=== PATIENT | female | born 1970 | race Caucasian/White ===

== ENCOUNTER 2020-01-21 13:29 | Emergency (ER) | payer MEDICARE, SELFPAY ==
--- NOTE | ~2020-01-21 | CT_ITS ---
EXAMINATION: CT abdomen pelvis w con DATE: 01/21/2020 17:26 INDICATION: Lower abdominal pain for 2-3 days TECHNIQUE: Computed tomography (CT) of the abdomen and pelvis was performed with 100 cc Omnipaque 350 intravenous contrast. The dose-length product was 1415.38 mGy-cm. Automated exposure control and ite rative reconstruction technique were employed. COMPARISON: CT dated 01/05/2019 FINDINGS: Lung bases unremarkable. Heart size normal. No pleural or pericardial effusion. Hepatomegal y. There are calcified granulomas of the spleen. Spleen is enlarged. The pancreas, adrenal glands and kidneys are unremarkable. Gallbladder is present and contains stones. Nonobstructive bowel gas patte rn. There are surgical changes of ventral abdominal wall hernia repair. There is a left paracentral v entral hernia containing fat. There is fluid in the endometrium which is thickened. Persistent nonenlarged retroperitoneal and left external iliac lymph nodes, likely reactive. No acute osseous abnormality. IMPRESSION: 1. Persistent chronic endometrial thickening with fluid. Further clinical evaluation recommended to e xclude endometrial malignancy. 2: Hepatosplenomegaly. 3: Cholelithiasis. 4: Previous ventral hernia repair with persistent left paracentral ventral hernia containing fat. Reviewed, dictated and finalized at location A. IMPRESSION: 1. Persistent chronic endometrial thickening with fluid. Further clinical evalu ation recommended to exclude endometrial malignancy. 2: Hepatosplenomegaly. 3: Cholelithiasis. 4: Previous ventral hernia repair with persistent left paracentral ventral her sheree containing fat.
[2020-01-21 13:52] VITALS: BP 131/71; PULSE 80; RESP 16; TEMP 36.6; O2SAT 97
[2020-01-21 14:12] LABS: Basophils Absolute Auto 0.1 K/mm3 (0.0-0.1); Basophils Percent Auto 0.6 % (0.2-1.2); Eosinophils Absolute Auto 0.3 K/mm3 (0-0.3); Eosinophils Percent Auto 3.9 % (0-4.4); Hematocrit 36.6 % (37.0-47.0); Immature Granulocyte Absolute 0.02 K/mm3 (0.00-0.031); Immature Granulocyte Percent A 0.3 % (0-0.5); Lymphocytes Absolute Auto 2.65 K/mm3 (0.9-3.2); Lymphocytes Percent Auto 33.5 % (18.3-44.2); Mean Corpuscular HGB Conc 32.8 g/dl (32-36); Mean Corpuscular Hemoglobin 26.4 pg (26-34); Mean Corpuscular Volume 80.6 fl (80-100); Mean Platelet Volume 8.5 fl (7.4-10.4); Monocytes Absolute Auto 0.5 K/mm3 (0.1-0.6); Monocytes Percent Auto 6.1 % (2.6-8.5); Neutrophils Absolute Auto 4.4 K/mm3 (1.3-6.7); Neutrophils Percent Auto 55.6 % (45.5-73.1); Platelet Count Result 309 k/mm3 (150-375); Red Blood Count 4.54 M/mm3 (4.2-5.4); Red Cell Distribution Width 15.6 % (11.5-14.5); White Blood Count 7.9 K/mm3 (4.5-10.0)
[2020-01-21 14:17] LABS: Add Urine Microscopic? YES; Appearance Urine Clear (Clear); Bacteria Urine Trace /hpf; Bilirubin Urine Negative (Negative); Blood Urine Negative (Negative); Color Urine Yellow (Yellow); Glucose Urine UA Negative (Negative); Ketones Urine Negative (Negative); Leukocyte Esterase Ur Trace LEU/UL (Negative); Mucus Urine Rare /lpf; Nitrate Urine Negative (Negative); Protein Urine 1+ mg/dL (Negative); RBC Urine 0-2 /hpf (0-2); Specific Grav Ur 1.024 (1.001-1.035); Squamous Epithelial Cell Urine Many /hpf (Few); WBC Urine 0-3 /hpf
[2020-01-21 14:24] LABS: Alanine Aminotransferase 17 U/L (4-35); Albumin Level 4.3 g/dL (3.5-5.1); Alkaline Phosphatase 91 U/L (38-126); Anion Gap 9 mmol/L (8-16); Aspartate Amino Transferase 22 U/L (14-36); Bilirubin,Total 0.7 mg/dL (0.2-1.3); Blood Urea Nitrogen 18 mg/dL (7-17); Calcium 9.7 mg/dL (8.4-10.2); Carbon Dioxide 26 mmol/L (22-30); Chloride 100 mmol/L (98-107); Estimated Glomerular Filt Rate 59; Glucose 114 mg/dL (65-105); Lipase 44 U/L (23-300); Potassium 4.2 mmol/L (3.4-5.0); Sodium 135 mmol/L (137-145)
--- NOTE | 2020-01-21 16:19 | ED.ABDPAIN ---
HPI - Abdominal Pain General Chief Complaint: Abdominal Pain Stated Complaint: abd pain 3-4 days Time Seen by Provider: 01/21/20 16:07 Source: RN notes reviewed History of Present Illness HPI narrative: Patient presents to emergency department from home for abdominal pain. Patient states began 4 days ago. Pain is located the bilateral lower abdomen described as sharp and stabbing. Associated with nausea and vomiting. Denies any fever chills chest pain shortness of breath diarrhea or any other symptoms. States he is taken no pain medication today for the symptoms.. States the pain does not radiate Related Data Home Medications Medication Instructions Recorded Confirmed levothyroxine 01/21/20 01/21/20 Allergies Allergy/AdvReac Type Severity Reaction Status Date / Time No Known Allergies Allergy Verified 01/21/20 16:06 Review of Systems Review of Systems: Narrative: Gen.: Denies fevers or chills ENT: Denies congestion Respiratory: Denies shortness of breath or cough CV: Denies chest pain or palpitations GI: See HPI denies burning, urgency, frequency or hematuria Musculoskeletal: Denies back pain or muscle pain Neuro: Denies numbness, tingling, weakness or focal weakness Skin: Denies rash Except as documented, all other systems reviewed and negative PMFSH Past Medical History Medical History (Updated 01/21/20 @ 17:46 by Pancho Strickland DO) Patient denies significant medical history Family History Family History (Updated 01/11/19 @ 10:50 by DOCTOR UNKNOWN) Father Family history of malignant neoplasm Mother Family history of chronic obstructive pulmonary disease Sibling Family history of malignant neoplasm of breast in first degree relative Family history of lupus erythematosus Other Asthma Depression Diabetes mellitus Family history of Alzheimer's disease Family history of alcoholism Family history of anemia Family history of cardiovascular disease Family history of malignant neoplasm of male breast Family history of mental disorder Family history of seizure disorder Family history of thyroid disease Hypertension Social History Social History Smoking status: Never smoker Alcohol intake: never Gender identity (if verbalized by the patient): Female Exam Narrative: Exam Narrative: APPEARANCE: No acute distress, nontoxic, resting in bed HEENT: Normocephalic, atraumatic, OMM RESPIRATORY: No respiratory distress, clear to auscultation bilaterally with no rhonchi wheezing or rales CARDIOVASCULAR: RRR s murmur ABDOMINAL: Obese, soft, nondistended, tender to palpation bilateral lower quadrants worse on the right than the left, no tenderness in right upper quadrant left upper quadrant, no rebound or guarding MUSCULOSKELETAl: Moves all extremities. No clubbing, cyanosis or edema. NEURO: Awake and alert. Following commands, speech normal, no focal deficits SKIN:: Warm, dry. Normal Color PSYCHIATRIC: Normal affect/mood Course Course Emergency Course: Discussed with patient CT results endometrial thickening. She states she is followed by Dr. Eugene for this she has had ablations and work-up. Discussed need for follow-up and patient and agreement at this time Patient states that they are feeling much better at this time. States abdominal pain has improved repeat abdominal exam shows the patient's abdomen to be soft with no surgical abdomen present. Discussed with patient results of workup and diagnosis. Discussed need for follow-up with primary care physician, reasons to return to the emergency department in proper use of medication. Patient understands and agrees to current treatment plan Vital Signs Vital signs: Vital Signs Temperature 97.9 F 01/21/20 13:52 Pulse Rate 80 01/21/20 13:52 Respiratory Rate 16 01/21/20 13:52 Blood Pressure 131/71 01/21/20 13:52 Pulse Oximetry 97 01/21/20 13:52 Tempera
[2020-01-21] MEDS: SODIUM CHLORIDE 0.9% IV 1,000 ML 999 ML IV CONT (17:10)
[2020-01-21] MEDS: KETOROLAC 30 MG/ML VIAL (*BKC) IV PUSH (17:12)
[2020-01-21] MEDS: MORPHINE SULFATE 2 MG/ML INJ IV PUSH (18:05)
[2020-01-21 18:09] VITALS: BP 147/66; PULSE 82; RESP 20; O2SAT 96
== END 2020-01-21 19:07 | disposition home or self-care (01) ==
PROVIDERS: Emergency Provider Emergency Medicine; PCP Family Medicine
DX: R10.32 Left lower quadrant pain (principal); R10.31 Right lower quadrant pain; R16.2 Hepatomegaly with splenomegaly, not elsewhere classified; K80.20 Calculus of gallbladder without cholecystitis without obstruction; K43.9 Ventral hernia without obstruction or gangrene; R93.89 Abnormal findings on diagnostic imaging of other specified body structures
CPT/HCPCS: 36415; 74177; 80053; 81001; 81025; 83690; 85025; 96361; 96374; 96375; 99284; J1885; J2270; J7030; Q9967

== ENCOUNTER 2020-02-10 19:38 | Emergency (ER) | payer MEDICARE, SELFPAY ==
--- NOTE | ~2020-02-10 | XR_ITS ---
EXAMINATION: XR ankle LT min 3V DATE: 02/10/2020 20:21 INDICATION: Lateral left ankle pain and swelling. TECHNIQUE: 4 views of left ankle were obtained. COMPARISON: None. FINDINGS: Bone alignment is normal. No fracture. There is mild midfoot osteoarthritis. There are enth esophytes at the posterior and plantar aspects of calcaneal tuberosity. IMPRESSION: 1. Mild midfoot osteoarthritis. Reviewed, dictated and finalized at location A.
--- NOTE | ~2020-02-10 | XR_ITS ---
EXAMINATION: XR foot LT min 3V DATE: 02/10/2020 20:21 INDICATION: Left foot pain. TECHNIQUE: 4 views of left foot were obtained. COMPARISON: None. FINDINGS: Bone alignment is normal. No fracture. There is mild osteoarthritis of first metatarsophala ngeal joint and some of the midfoot joints. There are enthesophytes at the posterior and plantar aspe cts of calcaneal tuberosity. IMPRESSION: 1. Mild polyarticular osteoarthritis. Reviewed, dictated and finalized at location A.
[2020-02-10 19:42] VITALS: BP 140/76; PULSE 66; RESP 17; TEMP 36.1; O2SAT 100
[2020-02-10] MEDS: HYDROcodone/acetaminophen (*CRX) 5-325 MG TABLET 1 TAB PO (20:51)
--- NOTE | 2020-02-10 21:06 | ED.LOWEXIN ---
HPI - Extremity Injury (Lower) General Chief Complaint: Extremity Injury, Lower Stated Complaint: fall, L foot pain Time Seen by Provider: 02/10/20 19:48 History of Present Illness HPI Narrative: Patient is a 49-year-old female who presents ER with left foot pain. She slipped on the floor and states her foot landed behind her back. Sudden onset pain. Walks with a limp. Mild sensation numbness but not actually numb. Did not lose consciousness. She had her left shoulder but she has full range of motion. No other concerns. Related Data Home Medications Medication Instructions Recorded Confirmed levothyroxine 01/21/20 01/21/20 Allergies Allergy/AdvReac Type Severity Reaction Status Date / Time No Known Allergies Allergy Verified 02/10/20 19:44 Review of Systems Musculoskeletal: Musculoskeletal: Denies back pain, Denies arthralgias and Reports joint swelling Comments: Foot pain Neurologic: Denies focal weakness and Reports numbness PMFSH Past Medical History Medical History (Updated 02/10/20 @ 21:10 by John Lemus MD) Patient denies significant medical history Family History Family History (Updated 01/11/19 @ 10:50 by DOCTOR UNKNOWN) Father Family history of malignant neoplasm Mother Family history of chronic obstructive pulmonary disease Sibling Family history of malignant neoplasm of breast in first degree relative Family history of lupus erythematosus Other Asthma Depression Diabetes mellitus Family history of Alzheimer's disease Family history of alcoholism Family history of anemia Family history of cardiovascular disease Family history of malignant neoplasm of male breast Family history of mental disorder Family history of seizure disorder Family history of thyroid disease Hypertension Social History Social History Smoking status: Never smoker Alcohol intake: never Gender identity (if verbalized by the patient): Female Exam Narrative: Exam Narrative: GENERAL: Well-appearing, well-nourished, and in no acute distress. HEAD: Normocephalic, atraumatic. EXTREMITIES: Normal range of motion. 2+ edema. Tenderness left midfoot without swelling or bruising. SKIN: Warm, dry, no rash. NEURO: No focal deficits. Alert and oriented x3. PSYCH: Normal mood and affect. Course Course Emergency Course: Informed of results. Discharge home. Vital Signs Vital signs: Vital Signs Temperature 97 F L 02/10/20 19:42 Pulse Rate 66 02/10/20 19:42 Respiratory Rate 17 02/10/20 19:42 Blood Pressure 140/76 02/10/20 19:42 Pulse Oximetry 100 02/10/20 19:42 Temperature 97 F L 02/10/20 19:42 Pulse Rate 66 02/10/20 19:42 Respiratory Rate 17 02/10/20 19:42 Blood Pressure 140/76 02/10/20 19:42 Pulse Oximetry 100 02/10/20 19:42 MDM - Extremity Injury (Lower) Imaging Data Radiologist's impression: ITS Impressions Ankle X-Ray 02/10/20 20:31 IMPRESSION: 1. Mild midfoot osteoarthritis. Foot X-Ray 02/10/20 20:32 IMPRESSION: 1. Mild polyarticular osteoarthritis. Discharge Plan Discharge Clinical Impression: Contusion of foot Patient Disposition: Home, Self-Care Condition: Stable Instructions: Foot Contusion (ED) Additional Instructions: Return the ER if you have chest pain or shortness of breath, you have a swollen and red foot, you have additional concerns. Prescriptions: New ibuprofen 800 mg tablet 800 mg PO TID Qty: 20 RF: 0 No Action levothyroxine 200 mcg tablet RF: 0 Follow-up/Referrals: Any,Veronika Todd MD [Primary Care Provider] - 1 Week
[2020-02-10 21:21] VITALS: TEMP 36.1
[2020-02-10 21:22] VITALS: BP 149/83; PULSE 74; RESP 18; TEMP 36.8; O2SAT 100
== END 2020-02-10 21:24 | disposition home or self-care (01) ==
PROVIDERS: Emergency Provider Emergency Medicine; PCP Family Medicine
DX: S90.32XA Contusion of left foot, initial encounter (principal); W01.0XXA Fall on same level from slipping, tripping and stumbling without subsequent striking against object, initial encounter
CPT/HCPCS: 73610; 73630; 99283; A9270

== ENCOUNTER 2020-03-02 13:02 | Emergency (ER) | payer MEDICARE, SELFPAY ==
--- NOTE | ~2020-03-02 | CT_ITS ---
EXAMINATION: CT abdomen pelvis w con DATE: 03/02/2020 14:38 INDICATION: Abdominal pain radiating to the flank TECHNIQUE: Computed tomography (CT) of the abdomen and pelvis was performed with 100 cc Omnipaque 350 intravenous contrast. Automated exposure control and iterative reconstruction technique were employe d. Exam dose: 1312.24 mGy-cm total exam DLP. COMPARISON: 01/13/2020 CT abdomen pelvis FINDINGS: The lung bases are clear. Cardiomegaly. No pericardial or pleural effusion. There are multiple small gallstones. No gallbladder wall thickening or pericholecystic fluid or fat s tranding. No hepatic space-occupying mass lesion or bile duct dilatation. No pancreatic mass lesion, calcification or ductal dilatation. Multiple calcified splenic granulomas. No splenomegaly. Normal morphology of the adrenal glands. No renal mass lesion. No urinary tract obstruction or hydroureteronephrosis. The urinary bladder is u nremarkable. The uterus measures 11 cm height, 7 10 mm AP dimension. There is up to approximately 6 x 6 cm x 5.5 c m mass or high attenuation fluid collection within the endometrial cavity. Endometrial malignancy mus t be considered. 2.9 cm left ovarian cyst or cystic mass; consider sonographic correlation. Normal caliber of the abdominal aorta. No intraperitoneal or retroperitoneal or pelvic mass lesion or adenopathy or ascites. Postoperative change of the stomach. No bowel obstruction, bowel wall thickening, pneumatosis or intr aperitoneal free air. There is ventral abdominal wall mesh repair. No suspicious osteolytic or osteoblastic lesions. IMPRESSION: Prominent mass or high density fluid collection with an individual cavity measuring up t o 6 x 6 x 5.5 cm; endometrial malignancy cannot be excluded. Up to 2.9 cm left ovarian cysts or cystic mass. Consider pelvic ultrasound correlation. Cholelithiasis Cardiomegaly Reviewed, dictated and finalized at [facility]. Reviewed, dictated and finalized at location A. IMPRESSION: Prominent mass or high density fluid collection with an individual cavity measuring up to 6 x 6 x 5.5 cm; endometrial malignancy cannot be exclud ed. Up to 2.9 cm left ovarian cysts or cystic mass. Consider pelvic ultrasound skylar elation. Cholelithiasis Cardiomegaly
[2020-03-02 13:19] VITALS: BP 162/66; PULSE 76; RESP 20; TEMP 36.8; O2SAT 98
--- NOTE | 2020-03-02 13:31 | ED.ABDPAIN ---
HPI - Abdominal Pain General Chief Complaint: Abdominal Pain Stated Complaint: abd pain to back Time Seen by Provider: 03/02/20 13:31 Source: patient Mode of arrival: ambulatory Limitations: no limitations History of Present Illness HPI narrative: Patient is a 49-year-old female with a history of cervical cancer and endometriosis who presents for evaluation of urinary frequency and abdominal pain. Patient reports abdominal pain and urinary frequency over the past 48 hours. She reports lower abdominal pain with radiation to the back. Patient reports pressure with urination. She denies fever, chills, nausea or vomiting. Pain is aching in nature, constant over the past 48 hours. Patient follows with Dr. Moreno at [facility]. Not currently undergoing any chemotherapy. She is scheduled for hysterectomy on March 17. Related Data Home Medications Medication Instructions Recorded Confirmed levothyroxine 01/21/20 01/21/20 Allergies Allergy/AdvReac Type Severity Reaction Status Date / Time No Known Allergies Allergy Verified 03/02/20 13:47 Review of Systems Review of Systems: Narrative: CONSTITUTIONAL: Denies fever, chills, or sweats. ENT: Denies rhinorrhea, congestion, sore throat, or otalgia. CARDIOVASCULAR: Denies chest pain, palpitations, or edema. RESPIRATORY: Denies cough or dyspnea. GASTROINTESTINAL: Reports abdominal pain. GENITOURINARY: Denies dysuria or hematuria. Reports frequency SKIN: Denies rash or itching. MUSCULOSKELETAL: Reports bilateral back pain NEUROLOGIC: Denies headache REPLACED BY [facility] Past Medical History Medical History (Updated 03/02/20 @ 15:51 by Dolores Pimentel MD) Cervical cancer Endometriosis Family History Family History (Updated 01/11/19 @ 10:50 by DOCTOR UNKNOWN) Father Family history of malignant neoplasm Mother Family history of chronic obstructive pulmonary disease Sibling Family history of malignant neoplasm of breast in first degree relative Family history of lupus erythematosus Other Asthma Depression Diabetes mellitus Family history of Alzheimer's disease Family history of alcoholism Family history of anemia Family history of cardiovascular disease Family history of malignant neoplasm of male breast Family history of mental disorder Family history of seizure disorder Family history of thyroid disease Hypertension Social History Social History Smoking status: Never smoker Alcohol intake: never Gender identity (if verbalized by the patient): Female Exam Narrative: Exam Narrative: GENERAL: Awake, alert, conversant HEAD: Normocephalic, atraumatic. EYES: PERRLA and EOMI. ENT: Nares clear, no rhinorrhea or epistaxis. Mucous membranes moist. NECK: Supple. CHEST: No respiratory distress, breathing even and non labored HEART: Regular rate, sinus rhythm ABDOMEN: Obese, nondistended, mildly tender in the right lower quadrant, right suprapubic area, no rebound, no guarding EXTREMITIES: Normal range of motion. No edema. SKIN: Warm, dry, no rash. NEURO:No focal deficits. Alert and oriented x3 Course Vital Signs Vital signs: Vital Signs Temperature 36.8 C 03/02/20 13:19 Pulse Rate 76 03/02/20 13:19 Respiratory Rate 20 03/02/20 13:19 Blood Pressure 162/66 H 03/02/20 13:19 Pulse Oximetry 98 03/02/20 13:19 Temperature 36.8 C 03/02/20 13:19 Pulse Rate 76 03/02/20 13:19 Respiratory Rate 20 03/02/20 13:19 Blood Pressure 162/66 H 03/02/20 13:19 Pulse Oximetry 98 03/02/20 13:19 MDM - Abdominal Pain MDM Narrative Medical decision making narrative: Patient presenting for evaluation of pelvic pain in the setting of known endometrial cancer. Patient with pressure with urination. Laboratory results are reassuring. No leukocytosis or anemia. No acute electrolyte derangement. No UTI. CT scan confirms endometrial mass, patient is already scheduled f
[2020-03-02] MEDS: SODIUM CHLORIDE 0.9% IV 1,000 ML 999 ML IV CONT (13:41)
[2020-03-02] MEDS: ONDANSETRON INJ 4 MG/2 ML VIAL IV PUSH (13:42)
[2020-03-02] MEDS: MORPHINE SULFATE (*CRX) 4 MG/ML INJ IV PUSH (13:42)
[2020-03-02 13:45] LABS: Basophils Absolute Auto 0.1 K/mm3 (0.0-0.1); Basophils Percent Auto 0.6 % (0.2-1.2); Eosinophils Absolute Auto 0.3 K/mm3 (0-0.3); Eosinophils Percent Auto 3.2 % (0-4.4); Hematocrit 38.6 % (37.0-47.0); Hemoglobin 12.6 g/dL (12.0-15.0); Immature Granulocyte Absolute 0.02 K/mm3 (0.00-0.031); Immature Granulocyte Percent A 0.2 % (0-0.5); Lymphocytes Absolute Auto 2.33 K/mm3 (0.9-3.2); Lymphocytes Percent Auto 23.4 % (18.3-44.2); Mean Corpuscular HGB Conc 32.6 g/dl (32-36); Mean Corpuscular Hemoglobin 26.9 pg (26-34); Mean Corpuscular Volume 82.5 fl (80-100); Mean Platelet Volume 8.3 fl (7.4-10.4); Monocytes Absolute Auto 0.6 K/mm3 (0.1-0.6); Monocytes Percent Auto 5.7 % (2.6-8.5); Neutrophils Absolute Auto 6.7 K/mm3 (1.3-6.7); Neutrophils Percent Auto 66.9 % (45.5-73.1); Platelet Count Result 286 k/mm3 (150-375); Red Blood Count 4.68 M/mm3 (4.2-5.4); Red Cell Distribution Width 15.5 % (11.5-14.5)
[2020-03-02 13:45] LABS: Add Urine Microscopic? YES; Appearance Urine Clear (Clear); Bacteria Urine Trace /hpf; Bilirubin Urine Negative (Negative); Blood Urine Negative (Negative); Color Urine Yellow (Yellow); Glucose Urine UA Negative (Negative); Ketones Urine Negative (Negative); Leukocyte Esterase Ur Negative LEU/UL (Negative); Mucus Urine Rare /lpf; Nitrate Urine Negative (Negative); Protein Urine Negative (Negative); RBC Urine 0-2 /hpf (0-2); Specific Grav Ur 1.021 (1.001-1.035); Squamous Epithelial Cell Urine Moderate /hpf (Few); WBC Urine 0-3 /hpf
[2020-03-02 13:59] LABS: Alanine Aminotransferase 23 U/L (4-35); Albumin Level 4.2 g/dL (3.5-5.1); Alkaline Phosphatase 87 U/L (38-126); Anion Gap 6 mmol/L (8-16); Aspartate Amino Transferase 24 U/L (14-36); Bilirubin,Total 0.5 mg/dL (0.2-1.3); Blood Urea Nitrogen 20 mg/dL (7-17); Calcium 9.8 mg/dL (8.4-10.2); Carbon Dioxide 29 mmol/L (22-30); Chloride 103 mmol/L (98-107); Estimated Glomerular Filt Rate 53; Glucose 97 mg/dL (65-105); Lipase 50 U/L (23-300); Potassium 4.5 mmol/L (3.4-5.0); Sodium 138 mmol/L (137-145)
[2020-03-02] MEDS: oxyCODONE/ACETAMINOPHEN (*CRX) 5-325 MG TABLET 1 TABLET PO (15:34)
[2020-03-02 16:47] VITALS: BP 155/78; PULSE 80; RESP 19; O2SAT 98
== END 2020-03-02 16:49 | disposition home or self-care (01) ==
PROVIDERS: Emergency Provider Emergency Medicine; PCP Family Medicine
DX: C54.1 Malignant neoplasm of endometrium (principal); R10.2 Pelvic and perineal pain; K80.20 Calculus of gallbladder without cholecystitis without obstruction; I51.7 Cardiomegaly; R93.89 Abnormal findings on diagnostic imaging of other specified body structures
CPT/HCPCS: 36415; 74177; 80053; 81001; 81025; 83690; 85025; 96361; 96374; 96375; 99284; A9270; J0131; J2270; J2405; J7030; Q9967

== ENCOUNTER 2022-01-04 07:22 | Outpatient (RCR) | payer MEDICARE, SELFPAY | END 2022-03-25 08:08 | disposition home or self-care (01) | LOC: ANHDMC 07:22 | PROVIDERS: PCP Family Medicine; Visit Provider Internal Medicine Endocrinology, Diabetes & Metabolism | DX: E11.9 Type 2 diabetes mellitus without complications (principal) | CPT/HCPCS: 99199 ==

== ENCOUNTER 2022-01-14 11:47 | Emergency (ER) | payer MEDICARE, SELFPAY ==
--- NOTE | ~2022-01-14 | XR_ITS ---
EXAMINATION: XR lumbar spine min 4V DATE: 01/14/2022 13:23 INDICATION: Low back pain TECHNIQUE: Anteroposterior, lateral, and bilateral oblique views of the lumbar spine, and cone-down l ateral view of the lumbosacral junction were obtained. COMPARISON: CT, 03/02/2020 FINDINGS: There are 3 mm of retrolisthesis of L5 on S1. Bone alignment is otherwise normal. No fractu re is identified. The vertebral body heights are maintained. There is moderate facet osteoarthritis o f the lower lumbar spine. Small degenerative osteophytes project from the anterior endplates of multi ple vertebral bodies. There is a moderately dilated loop of bowel in the midabdomen. IMPRESSION: 1. Moderate lumbar spondylosis without acute findings or significant interval change. 2. Dilated loop of bowel in the midabdomen of unclear significance. Reviewed, dictated and finalized at location B. IMPRESSION: 1. Moderate lumbar spondylosis without acute findings or significant interval c hange. 2. Dilated loop of bowel in the midabdomen of unclear significance.
--- NOTE | ~2022-01-14 | XR_ITS ---
EXAMINATION: XR knee RT min 4V DATE: 01/14/2022 13:23 INDICATION: Right knee injury. TECHNIQUE: 4 views of right knee were obtained. COMPARISON: None. FINDINGS: Bone alignment is normal. No fracture. There is mild tricompartmental osteoarthritis. No kn ee joint effusion. There are surgical clips in the posterior medial soft tissues. IMPRESSION: 1. Mild right knee osteoarthritis. Reviewed, dictated and finalized at location A.
--- NOTE | ~2022-01-14 | CT_ITS ---
EXAMINATION: CT abdomen pelvis wo con DATE: 01/14/2022 14:19 INDICATION: abd pain TECHNIQUE: Computed tomography (CT) of the abdomen and pelvis was performed without intravenous contr ast. Automated exposure control and iterative reconstruction technique were employed. The dose-length product was 1365.14 mGy-cm. COMPARISON: 03/02/2020. FINDINGS: Lower thorax: Cardiomegaly. Liver: Hepatomegaly. Biliary/Gallbladder: Gallbladder is collapsed. No bile duct dilation. Pancreas: No mass or duct dilation. Spleen: Normal. Adrenals:No mass. Kidneys: No mass, stone, or hydronephrosis. GI tract: Prior gastric surgery. No small or large bowel dilation. Herniation of multiple loops of no ndilated small bowel into a infraumbilical ventral hernia. Gas filled dilated loop of redundant sigmo id colon. Normal appendix. Scattered, minimal diverticulosis, without diverticulitis. Mesentery/Peritoneum: No ascites, mass, or free air. Borderline mesenteric lymphadenopathy. Retroperitoneum: No mass. Pelvis: Uterus is absent.. Soft Tissues: 6.9 x 5.9 cm infraumbilical midline ventral hernia containing multiple loops of small b owel, with significant surrounding inflammatory change. No fluid. Bilateral iliac lymphadenopathy. In terval removal/replacement of hernia mesh. Bones: No acute osseous finding. IMPRESSION: Marked hepatomegaly. Large inflamed infraumbilical midline abdominal wall hernia containing multiple loops of nondilated small bowel. No evidence of ileus or obstruction. Gas-filled mildly dilated loop of redundant sigmoid in the midline upper abdomen may be a source of pain. Bilateral iliac lymphadeno mitch. Borderline mesenteric/inguinal lymphadenopathy. Reviewed, dictated and finalized at location K. IMPRESSION: Marked hepatomegaly. Large inflamed infraumbilical midline abdominal wall herni a containing multiple loops of nondilated small bowel. No evidence of ileus or obstruction. Gas-filled mildly dilated loop of redundant sigmoid in the midline upper abdomen may be a source of pain. Bilateral iliac lymphadenopathy. Border line mesenteric/inguinal lymphadenopathy.
[2022-01-14 11:50] VITALS: BP 160/75; PULSE 84; RESP 16; TEMP 37.2; O2SAT 99
[2022-01-14] MEDS: HYDROcodone/acetaminophen (*CRX) 5-325 MG TABLET 1 TAB PO (12:45)
--- NOTE | 2022-01-14 12:48 | ED.FALL ---
HPI - Fall General Chief Complaint: Fall Stated Complaint: back, r knee injury Time Seen by Provider: 01/14/22 11:54 Source: RN notes reviewed History of Present Illness HPI Narrative: Patient presents emergency room from home for a fall. Patient states last night she is going on the stairs and missed the last 2 stairs and fell. She states at that time she landed on her right knee with pain in her right knee and twisted her lower back states she does not believe she directly struck her back she states she did strike the side of her head but did not have any loss of consciousness and she denies any headache she denies any other trauma or injuries from the fall she has been able to walk but states it is painful in her right leg she states she has not taking pain medication for the symptoms today she denies any chest pain shortness of breath abdominal pain numbness or tingling of the extremities bowel or bladder incontinence or any other symptoms Related Data Home Medications Medication Instructions Recorded Confirmed levothyroxine 200 mcg tablet 01/21/20 01/21/20 Allergies Allergy/AdvReac Type Severity Reaction Status Date / Time No Known Allergies Allergy Verified 03/02/20 13:47 Review of Systems Review of Systems: Gen.: Denies fevers or chills Eyes: Denies eye pain or visual change ENT: Denies congestion Respiratory: Denies shortness of breath or cough CV: Denies chest pain or palpitations GI: Denies abdominal pain nausea, emesis denies incontinence Musculoskeletal: See HPI Neuro: Denies numbness, tingling, weakness or focal weakness Skin: Denies rash Except as documented, all other systems reviewed and negative [facility] Past Medical History Medical History Cervical cancer Endometriosis Family History Family History (Updated 01/11/19 @ 10:50 by DOCTOR UNKNOWN) Father Family history of malignant neoplasm Mother Family history of chronic obstructive pulmonary disease Sibling Family history of malignant neoplasm of breast in first degree relative Family history of lupus erythematosus Other Asthma Depression Diabetes mellitus Family history of Alzheimer's disease Family history of alcoholism Family history of anemia Family history of cardiovascular disease Family history of malignant neoplasm of male breast Family history of mental disorder Family history of seizure disorder Family history of thyroid disease Hypertension Social History Social History Smoking status: Never smoker Alcohol intake: never Gender identity (if verbalized by the patient): Female Exam Narrative: APPEARANCE: No acute distress, nontoxic, resting in bed EYES: EOMI, PERRL HEENT: Normocephalic, atraumatic, OMM TMs clear bilaterally Neck: Supple no midline tenderness to palpation for range of motion without pain RESPIRATORY: No respiratory distress Clear to auscultation bilaterally with no rhonchi wheezing or rales. CARDIOVASCULAR: Regular rate and rhythm without murmurs rubs or gallops. ABDOMINAL: Soft, nontender, nondistended, no rebound or guarding MUSCULOSKELETAl: Moves all extremities. No clubbing, cyanosis or edema. No tenderness of the bilateral upper and left lower extremity tender palpation of right anterior knee no swelling or ecchymosis no tenderness over the medial lateral knee pain with flexion greater than 45 degrees no tenderness of the right hip or ankle neurovascular intact Back: No midline thoracic or lumbar tenderness palpation tender palpation of bilateral perigee muscles L3-5 pain worse with forward flexion NEURO: Awake and alert. Following commands, speech normal, no focal deficits SKIN:: Warm, dry. No rashes lesions or abrasions PSYCHIATRIC: Normal affect/mood, exam Course Course Emergency Course: [place] x-ray I did discuss with patient she does some intermittent bettie t
== END 2022-01-14 15:17 | disposition home or self-care (01) ==
PROVIDERS: Emergency Provider Emergency Medicine; PCP Family Medicine
DX: S80.01XA Contusion of right knee, initial encounter (principal); M54.50 Low back pain, unspecified; S00.93XA Contusion of unspecified part of head, initial encounter; W10.9XXA Fall (on) (from) unspecified stairs and steps, initial encounter
CPT/HCPCS: 72110; 73564; 74176; 99284; A9270

== ENCOUNTER 2022-04-24 07:39 | Outpatient (CLI) | payer MEDICARE, SELFPAY ==
--- NOTE | ~2022-04-24 | CT_ITS ---
EXAMINATION: CT soft tissue neck w con DATE: 04/24/2022 08:29 INDICATION: Squamous cell carcinoma of skin. TECHNIQUE: Computed tomography (CT) of the neck was performed with 75 mL Omnipaque-350 intravenous co ntrast. Automated exposure control and iterative reconstruction technique were employed. The dose-evelio gth product was 434.16 mGy-cm. COMPARISON: None FINDINGS: Calcified mediastinal lymph nodes are consistent with old granulomatous disease. There is m ild plaque in the proximal internal carotid arteries with 0% stenosis relative to normal distal arter y lumen diameters. There is mild mucosal thickening in the ethmoid sinuses. The mastoid air cells are normal. There is mild cervical spondylosis. IMPRESSION: 1. No evidence of metastatic disease. Reviewed, dictated and finalized at location A. [facility]
--- NOTE | ~2022-04-24 | CT_ITS ---
EXAMINATION: CT brain w con DATE: 04/24/2022 08:29 INDICATION: Squamous cell carcinoma of the skin TECHNIQUE: Computed tomography (CT) of the head was performed with 100 cc Omnipaque 350 intravenous c ontrast. The dose-length product was 674.51 mGy-cm. Automated exposure control and iterative reconstr uction technique were employed. COMPARISON: None FINDINGS: Normal brain parenchymal volume. Normal suarez-white differentiation. No infarction, hemorrha ge, mass or mass effect. No abnormal enhancement. No ventriculomegaly or midline shift. Paranasal sin uses and mastoids are pneumatized. No focal lytic or blastic lesions of the skull. IMPRESSION: 1. No significant intracranial abnormality. Reviewed, dictated and finalized at location A. 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
== END 2022-04-24 07:40 ==
PROVIDERS: PCP Family Medicine
DX: C44.92 Squamous cell carcinoma of skin, unspecified (principal)
CPT/HCPCS: 70460; 70491; Q9967

== ENCOUNTER 2022-07-12 17:43 | Emergency (ER) | payer MEDICARE, SELFPAY ==
--- NOTE | ~2022-07-12 | XR_ITS ---
XR elbow RT min 3V 07/12/2022 18:14 INDICATION: Right elbow pain PROCEDURE: 4 views right elbow COMPARISON: No prior studies for comparison. FINDINGS: Fracture, dislocation or subluxation is not identified. No significant joint effusion. Ther e is mild dorsal soft tissue swelling. No foreign bodies are identified. IMPRESSION: 1: NO ACUTE BONE OR JOINT ABNORMALITY IDENTIFIED. Reviewed, dictated and finalized at location A. C[employer] F[employer]ER
[2022-07-12 17:51] VITALS: BP 162/85; PULSE 75; RESP 20; TEMP 36.4; O2SAT 99
--- NOTE | 2022-07-12 18:16 | ED.UPPEXIN ---
HPI - Extremity Injury (Upper) General Chief Complaint: Extremity Injury, Upper Stated Complaint: right elbow injury/migraine Time Seen by Provider: 07/12/22 18:17 Source: patient Mode of arrival: ambulatory Limitations: no limitations History of Present Illness HPI narrative: 51-year-old 51-year-old female presenting for complaint of right elbow pain for 3 days, and migraine today. She endorses striking the right elbow on a car door 3 days ago and has had pain with mild swelling since then. Elbow pain radiates to right shoulder. She applied ice. Denies numbness, tingling, decreased range of motion to the RUE. She also reports the migraine started today. She endorses intermittent headaches but states this is worse than normal. endorses mild photophobia and nausea. endorses increased stress lately. She rates pain 10/10. She has taken Tylenol and ibuprofen. Denies Shortness of breath, wheezing, vomiting, diarrhea, fevers or chills. Related Data Home Medications Medication Instructions Recorded Confirmed levothyroxine 200 mcg tablet 200 mcg PO DAILY 01/21/20 07/12/22 acetaminophen 300 mg-codeine 30 mg See Rx Instructions .Route 07/12/22 07/12/22 tablet .COMPLEX PRN Pain gabapentin 300 mg capsule 300 mg PO BID 07/12/22 07/12/22 tramadol 50 mg tablet See Rx Instructions .Route 07/12/22 07/12/22 .COMPLEX PRN Pain Allergies Allergy/AdvReac Type Severity Reaction Status Date / Time No Known Allergies Allergy Verified 01/17/22 08:50 Review of Systems Review of Systems: Per HPI All systems reviewed & are unremarkable except as noted in HPI and below PMFSH Past Medical History Medical History Cervical cancer CHF (congestive heart failure) Endometriosis History of blood transfusion Hypothyroid Surgical History Surgical History History of delivery History of hysterectomy History of incisional hernia repair History of tonsillectomy History of umbilical hernia repair Family History Family History Father Lung cancer Hypertension Mother Family history of chronic obstructive pulmonary disease Diabetes mellitus Heart disease Cerebrovascular accident Skin cancer Sibling Family history of malignant neoplasm of breast in first degree relative Family history of lupus erythematosus Other Asthma Depression Family history of Alzheimer's disease Family history of alcoholism Family history of anemia Family history of cardiovascular disease Family history of malignant neoplasm of male breast Family history of mental disorder Family history of seizure disorder Family history of thyroid disease Social History Social History Smoking status: Never smoker Alcohol intake: never Additional occupation/education comments: disabled Gender identity (if verbalized by the patient): Female Comments At time of signature, I have reviewed and agree with nursing past medical, surgical, social and family history unless otherwise noted. Please see nursing chart for further information. There is no relevant family history pertinent to the presenting complaint Exam Narrative: GENERAL: Well-appearing EYES: PERRLA, EOMI conjunctivae clear NECK: Supple. CHEST: Speaks in full sentences. No respiratory distress. HEART: Regular rate and rhythm. Normal and equal peripheral pulses. EXTREMITIES: Right elbow ulnar aspect with 1cm scabbed laceration over olecranon and surrounding erythema approx 3cm diameter, mild swelling, minimal bruising; right UE has normal strength and sensation, normal range of motion, but endorses pain with movement.No obvious deformity; alignment normal, pulse palpable and equal bilaterally, skin warm, dry, pink. Capillary refill less than 3 seco
== END 2022-07-12 18:30 | disposition home or self-care (01) ==
PROVIDERS: Emergency Provider Nurse Practitioner Family; PCP Family Medicine
DX: S50.01XA Contusion of right elbow, initial encounter (principal); W22.8XXA Striking against or struck by other objects, initial encounter; R51.9 Headache, unspecified; E03.9 Hypothyroidism, unspecified; N80.9 Endometriosis, unspecified; I50.9 Heart failure, unspecified; Z85.41 Personal history of malignant neoplasm of cervix uteri
CPT/HCPCS: 73080; 99213; G0463

== ENCOUNTER 2022-11-11 15:03 | Emergency (ER) | payer MEDICARE, SELFPAY ==
[2022-11-11 15:10] VITALS: BP 169/81; PULSE 79; RESP 20; TEMP 36.9; O2SAT 100
[2022-11-11 15:16] VITALS: BP 169/81; PULSE 79; RESP 20; TEMP 36.9; O2SAT 100
--- NOTE | 2022-11-11 15:16 | ECG_ITS ---
Measurements Intervals [place] Rate: 75 P: 27 TX: 178 QRS: -2 QRSD: 176 T: 44 QT: 478 QTc: 536 Interpretive Statements SINUS RHYTHM RIGHT BUNDLE BRANCH BLOCK [120+ ms QRS DURATION, UPRIGHT V1, 40+ ms S IN I/aVL/V4/V5/V6] COMPARED TO ECG 11/11/2022 15:27:20 NO SIGNIFICANT CHANGES Electronically Signed On 11-12-2022 14:59:03 CDT by Charlene Ames M.D.
--- NOTE | 2022-11-11 15:16 | ED.HA ---
HPI - Headache General Chief Complaint: Chest Pain Stated Complaint: Migraine w/heavy chest History of Present Illness HPI Narrative: PATIENT STATES SHE WAS AT HOME THIS MORNING HAVING A YD SALE AND CAREGIVER CHECKS ON HER MONTHLY CALLED FOR UPDATE ON HER HEALTH STATUS. PATIENT STATES SHE REPORTED CHEST HEAVINESS, IF AN ELEPHANT IS SITTING ON HER CHEST PRESSURE THAT IS INTERMITTENT. PATIENT DENIES SHORTNESS OF BREATH ALSO REPORTS A HEADACHE THAT IS THE WORST HEADACHE OF HER LIFE. PATIENT STATES SHE WAS INSTRUCTED TO GO TO AN URGENT CARE FOR EVALUATION TREATMENT BY IN THE OFFICE STAFF. Related Data Home Medications Medication Instructions Recorded Confirmed levothyroxine 200 mcg tablet 200 mcg PO DAILY 01/21/20 11/11/22 acetaminophen 300 mg-codeine 30 mg See Rx Instructions .Route 07/12/22 11/11/22 tablet .COMPLEX PRN Pain gabapentin 300 mg capsule 300 mg PO BID 07/12/22 11/11/22 Allergies Allergy/AdvReac Type Severity Reaction Status Date / Time No Known Allergies Allergy Verified 11/11/22 15:14 Review of Systems Review of Systems: CONSTITUTIONAL: DENIES FEVER, CHILLS, OR SWEATS. EYES: DENIES VISUAL CHANGES, REDNESS, OR DISCHARGE. ENT: DENIES RHINORRHEA, CONGESTION, SORE THROAT, OR OTALGIA. CARDIOVASCULAR: DENIES CHEST PAIN, PALPITATIONS, OR EDEMA. RESPIRATORY: DENIES COUGH OR DYSPNEA. GASTROINTESTINAL: DENIES ABDOMINAL PAIN, NAUSEA, VOMITING, OR DIARRHEA. GENITOURINARY: DENIES DYSURIA OR HEMATURIA. SKIN: DENIES RASH OR ITCHING. MUSCULOSKELETAL: DENIES BACK PAIN, JOINT PAIN, OR MYALGIA. NEUROLOGIC: DENIES HEADACHE, NUMBNESS, OR WEAKNESS. PSYCHIATRIC: DENIES ANXIETY OR DEPRESSION. [facility] Past Medical History Medical History Cervical cancer CHF (congestive heart failure) Endometriosis History of blood transfusion Hypothyroid Surgical History Surgical History History of delivery History of hysterectomy History of incisional hernia repair History of tonsillectomy History of umbilical hernia repair Family History Family History Father Lung cancer Hypertension Mother Family history of chronic obstructive pulmonary disease Diabetes mellitus Heart disease Cerebrovascular accident Skin cancer Sibling Family history of malignant neoplasm of breast in first degree relative Family history of lupus erythematosus Other Asthma Depression Family history of Alzheimer's disease Family history of alcoholism Family history of anemia Family history of cardiovascular disease Family history of malignant neoplasm of male breast Family history of mental disorder Family history of seizure disorder Family history of thyroid disease Social History Social History Smoking status: Never smoker Alcohol intake: never Additional occupation/education comments: disabled Gender identity (if verbalized by the patient): Female Comments AT TIME OF SIGNATURE, AGREE WITH NURSING PAST MEDICAL, SURGICAL, SOCIAL AND FAMILY HISTORY. THERE IS NO RELEVANT FAMILY HISTORY PERTINENT TO THE PRESENTING COMPLAINT Exam Narrative: GENERAL: WELL-APPEARING, WELL-NOURISHED, AND IN NO ACUTE DISTRESS. HEAD: NORMOCEPHALIC, ATRAUMATIC. EYES: PERRLA AND EOMI. ENT: NARES CLEAR, NO RHINORRHEA OR EPISTAXIS. MUCOUS MEMBRANES MOIST. NECK: SUPPLE. CHEST: CLEAR TO AUSCULTATION. NO RESPIRATORY DISTRESS. HEART: REGULAR RATE AND RHYTHM. NO MURMUR HEARD. NORMAL PERIPHERAL PULSES. ABDOMEN: SOFT, NONTENDER, NONDISTENDED, NORMAL ACTIVE BOWEL SOUNDS. EXTREMITIES: NORMAL RANGE OF MOTION. NO EDEMA. SKIN: WARM, DRY, NO RASH. NEURO: NO FOCAL DEFICITS. ALERT AND ORIENTED X3. JEREMY COMA SCALE EYE OPENING: SPONTANEOUS 4 JEREMY COMA SCALE MOTOR: OBEYS COMMANDS 6 JEREMY COMA SCALE VERBAL: ORIENTED
== END 2022-11-11 15:30 | disposition short-term general hospital (02) ==
PROVIDERS: Emergency Provider Nurse Practitioner Family; PCP Physician Assistant
DX: R51.9 Headache, unspecified (principal); R07.9 Chest pain, unspecified; R07.89 Other chest pain; I45.10 Unspecified right bundle-branch block; N80.9 Endometriosis, unspecified; I50.9 Heart failure, unspecified; Z85.41 Personal history of malignant neoplasm of cervix uteri
CPT/HCPCS: 93005; 99213; G0463

== ENCOUNTER 2022-11-11 16:07 | Emergency (ER) | payer MEDICARE, SELFPAY ==
--- NOTE | ~2022-11-11 | XR_ITS ---
EXAMINATION: XR chest 2V Exam Date/Time: 11/11/2022 17:15 CDT HISTORY: chest heaviness, PT STATES THEY HAVE CHF Comparison: CT soft tissue neck 04/24/2022. RESULT: Lines, tubes, and devices: None. Lungs and pleura: Congestive vessels, otherwise clear. Cardiomediastinal silhouette: Stable. Other: No acute osseous or upper abdominal finding. IMPRESSION: Pulmonary vascular congestion, otherwise normal acute cardiopulmonary process. Reviewed, dictated and finalized at location K.
--- NOTE | 2022-11-11 16:09 | ECG_ITS ---
Measurements Intervals [place] Rate: 74 P: 44 [place]: 181 QRS: 16 QRSD: 177 T: 61 QT: 496 QTc: 553 Interpretive Statements SINUS RHYTHM RIGHT BUNDLE BRANCH BLOCK [120+ ms QRS DURATION, UPRIGHT V1, 40+ ms S IN I/aVL/V4/V5/V6] NO PREVIOUS ECG AVAILABLE FOR COMPARISON Electronically Signed On 11-12-2022 14:58:40 CDT by Charlene Ames M.D.
[2022-11-11 16:11] VITALS: BP 157/92; PULSE 76; RESP 16; TEMP 36.6; O2SAT 96
[2022-11-11 16:33] LABS: Basophils Absolute Auto 0.1 K/mm3 (0.0-0.1); Basophils Percent Auto 0.8 % (0.2-1.2); Eosinophils Absolute Auto 0.2 K/mm3 (0-0.3); Hematocrit 36.7 % (37.0-47.0); Hemoglobin 11.9 g/dL (12.0-15.0); Immature Granulocyte Absolute 0.04 K/mm3 (0.00-0.031); Immature Granulocyte Percent A 0.5 % (0-0.5); Lymphocytes Absolute Auto 2.74 K/mm3 (0.9-3.2); Mean Corpuscular HGB Conc 32.4 g/dl (32-36); Mean Corpuscular Hemoglobin 28.3 pg (26-34); Mean Corpuscular Volume 87.2 fl (80-100); Mean Platelet Volume 8.6 fl (7.4-10.4); Monocytes Absolute Auto 0.3 K/mm3 (0.1-0.6); Monocytes Percent Auto 4.5 % (2.6-8.5); Neutrophils Percent Auto 54.2 % (45.5-73.1); Platelet Count Result 228 k/mm3 (150-375); Red Blood Count 4.21 M/mm3 (4.2-5.4); White Blood Count 7.4 K/mm3 (4.5-10.0)
[2022-11-11 16:44] LABS: Alanine Aminotransferase 42 U/L (6-35); Albumin Level 4.5 g/dL (3.5-5.1); Alkaline Phosphatase 103 U/L (38-126); Anion Gap 5 mmol/L (8-16); Aspartate Amino Transferase 39 U/L (14-36); Bilirubin,Total 0.8 mg/dL (0.2-1.3); Blood Urea Nitrogen 17 mg/dL (7-17); Calcium 9.9 mg/dL (8.4-10.2); Carbon Dioxide 30 mmol/L (22-30); Chloride 104 mmol/L (98-107); Estimated Glomerular Filt Rate 47; Glucose 111 mg/dL (65-110); Lipase 51 U/L (23-300); Partial Thromboplastin Time 25.4 SECONDS (22.3-36.8); Potassium 3.9 mmol/L (3.4-5.0); Prothrombin Time 13.9 Seconds (11.1-14.7); Sodium 139 mmol/L (137-145)
[2022-11-11 16:56] LABS: Troponin I < 0.012 ng/mL (0.000-0.034)
[2022-11-11 19:51] VITALS: BP 170/86; PULSE 70; RESP 20; O2SAT 100
[2022-11-11 19:58] LABS: NT Pro B Type Natriuretic Pept 49 pg/mL (19.9-100); Troponin I < 0.012 ng/mL (0.000-0.034)
--- NOTE | 2022-11-11 20:08 | ED.CHESTPAIN ---
HPI - Chest Pain General Chief Complaint: Chest Pain Stated Complaint: chest heaviness Time Seen by Provider: 11/11/22 19:53 History of Present Illness HPI narrative: This is a 51-year-old female with reported history of CHF, who presents to the emergency department with intermittent episodes of chest heaviness and headache for the past 8 hours. The patient states she was at rest, at home when she noticed chest heaviness. There is no associated chest pain and no aggravating or alleviating factors. It intermittently recurs and resolves on its own. She also complains of headache today, described as throbbing, rated 6/10, associated with photophobia and phonophobia. She states this is similar to previous migraines though more intense. She denies weakness, numbness or loss of consciousness Related Data Home Medications Medication Instructions Recorded Confirmed levothyroxine 200 mcg tablet 200 mcg PO DAILY 01/21/20 11/11/22 acetaminophen 300 mg-codeine 30 mg See Rx Instructions .Route 07/12/22 11/11/22 tablet .COMPLEX PRN Pain gabapentin 300 mg capsule 300 mg PO BID 07/12/22 11/11/22 Allergies Allergy/AdvReac Type Severity Reaction Status Date / Time No Known Allergies Allergy Verified 11/11/22 16:08 Review of Systems Review of Systems: CONSTITUTIONAL: Denies fever, chills, or sweats CARDIOVASCULAR: Chest pressure Denies chest pain, palpitations, or edema. RESPIRATORY: Denies cough or dyspnea. GASTROINTESTINAL: Denies abdominal pain, nausea, vomiting, or diarrhea. GENITOURINARY: Denies dysuria or hematuria. SKIN: Denies rash or itching. MUSCULOSKELETAL: Denies back pain, joint pain, or myalgia. NEUROLOGIC: Headache Denies numbness, dizziness, or weakness. PSYCHIATRIC: Denies anxiety or depression. [facility] Past Medical History Medical History Cervical cancer CHF (congestive heart failure) Endometriosis History of blood transfusion Hypothyroid Surgical History Surgical History History of delivery History of hysterectomy History of incisional hernia repair History of tonsillectomy History of umbilical hernia repair Family History Family History Father Lung cancer Hypertension Mother Family history of chronic obstructive pulmonary disease Diabetes mellitus Heart disease Cerebrovascular accident Skin cancer Sibling Family history of malignant neoplasm of breast in first degree relative Family history of lupus erythematosus Other Asthma Depression Family history of Alzheimer's disease Family history of alcoholism Family history of anemia Family history of cardiovascular disease Family history of malignant neoplasm of male breast Family history of mental disorder Family history of seizure disorder Family history of thyroid disease Social History Social History Smoking status: Never smoker Alcohol intake: never Additional occupation/education comments: disabled Gender identity (if verbalized by the patient): Female Exam Narrative: GENERAL: Well-developed, well-nourished, and in no acute distress. HEAD: Normocephalic, atraumatic. EYES: PERRLA and EOMI. ENT: Nares clear, no rhinorrhea or epistaxis. ?Mucous membranes moist. ?Oropharynx without tonsillar hypertrophy exudate or other lesions. ? NECK: Supple. ?No adenopathy or masses. ?No JVD CHEST: Clear to auscultation. ?No respiratory distress. ?No wheezes rales or rhonchi HEART: Regular rate and rhythm. ?No murmur heard. ?Normal peripheral pulses. ABDOMEN: Soft, nontender, nondistended, normal active bowel sounds. EXTREMITIES: Normal range of motion. ?No edema. SKIN: Warm, dry, no rash. NEURO: No focal deficits. ?Alert and oriented x3 .PSYCH: Normal mood and affect Course Course Deepa
[2022-11-11 20:55] VITALS: BP 162/84; PULSE 65; RESP 18; O2SAT 97
[2022-11-11] MEDS: diphenhydrAMINE HCl INJ 50 MG/ML VIAL 25 MG IV PUSH (20:56)
[2022-11-11] MEDS: SODIUM CHLORIDE 0.9% IV 500 ML 999 ML IV CONT (20:56)
[2022-11-11] MEDS: PROCHLORPERAZINE EDISYLATE 10 MG/2 ML VIAL IV PUSH (20:56)
== END 2022-11-11 21:52 | disposition home or self-care (01) ==
PROVIDERS: Emergency Medicine; Emergency Provider Preventive Medicine Aerospace Medicine; PCP Physician Assistant
DX: R07.89 Other chest pain (principal); G43.909 Migraine, unspecified, not intractable, without status migrainosus; I50.9 Heart failure, unspecified; E03.9 Hypothyroidism, unspecified; N80.9 Endometriosis, unspecified; Z90.710 Acquired absence of both cervix and uterus; I45.10 Unspecified right bundle-branch block
CPT/HCPCS: 36415; 71046; 80053; 83690; 83880; 84484; 85025; 85610; 85730; 93005; 96365; 96375; 99284; J0131; J0780; J1200; J7040

== ENCOUNTER 2023-02-12 18:24 | Emergency (ER) | payer MEDICARE, SELFPAY ==
[2023-02-12 18:28] VITALS: BP 158/79; PULSE 82; RESP 16; TEMP 36.2; O2SAT 100
--- NOTE | 2023-02-12 18:33 | ED.EAR ---
HPI - Ear Problem General Chief complaint: Dental/Oral Stated complaint: Left Ear Pain/Headache Time Seen by Provider: 02/12/23 18:36 Mode of arrival: ambulatory Limitations: no limitations History of Present Illness HPI Narrative: 52-year-old female presents concern for left ear pain, jaw pain that radiates down to her shoulder. She also reports headache. She reports symptoms started this morning. She reports she has been taking Tylenol without relief. She reports she has issues with that was dimmed tooth on the left side and she has made a dentist appointment. MD Complaint: ear pain and other (dental pain) Related Data Home Medications Medication Instructions Recorded Confirmed calcitriol 0.25 mcg capsule 0.25 mcg PO DAILY 02/12/23 02/12/23 ergocalciferol (vitamin D2) 1,250 1,250 mcg PO WEEKLY 02/12/23 02/12/23 mcg (50,000 unit) capsule furosemide 40 mg tablet 40 mg PO DAILY 02/12/23 02/12/23 levothyroxine 150 mcg tablet 150 mcg PO DAILY 02/12/23 02/12/23 Allergies Allergy/AdvReac Type Severity Reaction Status Date / Time No Known Allergies Allergy Verified 02/12/23 18:41 Review of Systems Review of Systems: CONSTITUTIONAL: Denies malaise, chills, sweats, or fever. EYES: Denies visual changes ENT: Denies rhinorrhea, congestion, sinus pain, or sore throat. Reports dental pain, left otalgia CARDIOVASCULAR: Denies chest pain, palpitations RESPIRATORY: Denies cough or dyspnea. SKIN: Denies rash or itching. MUSCULOSKELETAL: Denies myalgia. NEUROLOGIC: Denies numbness, weakness. Reports headache. All systems reviewed & are unremarkable except as noted in HPI and below PMFSH Past Medical History Medical History Cervical cancer CHF (congestive heart failure) Endometriosis History of blood transfusion Hypothyroid Surgical History Surgical History History of delivery History of hysterectomy History of incisional hernia repair History of tonsillectomy History of umbilical hernia repair Family History Family History Father Lung cancer Hypertension Mother Family history of chronic obstructive pulmonary disease Diabetes mellitus Heart disease Cerebrovascular accident Skin cancer Sibling Family history of malignant neoplasm of breast in first degree relative Family history of lupus erythematosus Other Asthma Depression Family history of Alzheimer's disease Family history of alcoholism Family history of anemia Family history of cardiovascular disease Family history of malignant neoplasm of male breast Family history of mental disorder Family history of seizure disorder Family history of thyroid disease Social History Social History Smoking status: Never smoker Alcohol intake: never Additional occupation/education comments: disabled Gender identity (if verbalized by the patient): Female Comments At time of signature, agree with nursing past medical, surgical, social and family history. There is no relevant family history pertinent to the presenting complaint Exam Narrative: GENERAL: Well-appearing, well-nourished, and in no acute distress. HEAD: Normocephalic, atraumatic. EYES: PERRLA, sclera clear, and EOMI. No nystagmus. ENT: Nares clear, turbinates pink, no rhinorrhea or epistaxis. Mucous membranes moist. TM pearly suarez with sharp light reflex bilaterally; no tragal tenderness. Oropharynx without erythema or lesions. Tonsils not enlarged and without exudate. Redness, swelling surrounding tooth 17, left jaw tenderness NECK: Supple. No lymphadenopathy CHEST: No respiratory distress. Speaks in full sentences. HEART: Regular rate and rhythm. SKIN: Warm, dry, no visible rash. NEURO: Alert and oriented x3. No focal deficits. PSYCH:
== END 2023-02-12 18:48 | disposition home or self-care (01) ==
PROVIDERS: Emergency Provider Nurse Practitioner; PCP Family Medicine
DX: K08.89 Other specified disorders of teeth and supporting structures (principal); I50.9 Heart failure, unspecified; E03.9 Hypothyroidism, unspecified; Z79.899 Other long term (current) drug therapy
CPT/HCPCS: 99213; G0463

== ENCOUNTER 2025-04-07 09:28 | Outpatient (CLI) | payer MEDICARE, SELFPAY ==
--- OUTSIDE RECORDS SUMMARY | 2023-09-24 09:30 | XMS_ITS ---
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 Name Role Phone Mina Jhonny Unavailable [phone] Social History Sex Assigned At : Social History Observation Description Sex Assigned At Female Encounters Encounter Location Date Provider Diagnosis [facility] [address] [place] [address] 09/24/2023 Jhonny Enriquez Plan Of Treatment Next Appt Details Provider Name:Jhonny Enriquez , 03/09/2025 03:15:00 PM, [address], [facility], Progress Notes * DOMONIQUE SHINOB:1970 (54 yo F)Acc No.[id number]:09/24/2023 Progress Notes Patient: DEANGELO FONSECA Provider: Doretha CASPER MD, Sofia.Francia.Julia.P, F.A.S.N. :1970 A ge:52 Y S ex:Female Date:09/24/2023 Address:[address] [place] [address] Subjective: * Chief Complaints: * * Medical History: Objective: * Vitals: Assessment: Plan: * Treatment: * Billing Information: * Visit Code: * Procedure Codes: * Electronic signature of Pratibha Enriquez MD on 02/28/2025 at 09:55 AM CDT Sign off status: Pending * Provider: Doretha CASPER MD, MaryC.P, F.A.S.N. Date: 09/24/2023 Generated for Printing/Faxing/eTransmitting on: 1 09:55 AM CDT
--- OUTSIDE RECORDS SUMMARY | 2023-10-31 08:00 | XMS_ITS ---
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 Name Role Phone Jhonny Enriquez Unavailable [phone] Medications Medication SIG (Take, Route, Frequency, Duration) Notes Start Date End Date Status Allopurinol 100 MG 1 tablet Orally Once a day; Duration: 90 day(s) 07/09/2023 04/04/2024 Active Calcitriol 0.25 MCG 1 capsule Orally Onc e a day; Duration: 90 day(s) 03/19/2023 12/14/2023 Active Myrbetriq 25 MG 1 tablet Orally Once a day; Duration: 90 day(s) 03/19/2023 12/14/2023 Active Lasix 40 MG 1 tablet Orally Once a day; Duration: 90 days 01/01/2023 Active Ergocalciferol 1.25 MG (44680 UT) 1 capsule Orally twice a week; Duration: 90 day(s) 03/19/2023 12/14/2023 Active Gabapentin 300 MG 1 capsule Orally Onc e a day; Duration: 90 day(s) 11/16/2021 Active Losartan Potassium 50 MG 1 tablet Orally Once a day; Duration: 90 07/09/2023 Active Social History Sex Assigned At : Social History Observation Description Sex Assigned At Female Encounters Encounter Location Date Provider Diagnosis [facility] [address] [facility] [address] [place] [address] 10/31/2023 Jhonny Enriquez Chronic kidney disease, stage 3a N18.31 ; Essential hypertension I10 ; Obesity, unspecified E66.9 ; Chronic pain syndrome G89.4 and Hypothyroidism, unspecified E03.9 Assessments Encounter Date Diagnosis (ICD Code) Assessment Notes Treatment Notes Treatment Clinical Notes Section Notes 10/31/2023 Chronic kidney disease, stage 3a (ICD-10 - N18.31) 10/31/2023 Essential hypertension (ICD-10 - I10) 10/31/2023 Obesity, unspecified (ICD-10 - E66.9) 10/31/2023 Chronic pain syndrome (ICD-10 - G89.4) 10/31/2023 Hypothyroidism, unspecified (ICD-10 - E03.9) Plan Of Treatment No Information Progress Notes * DOMONIQUE SHINOB:1970 (54 yo F)Acc No.[id number]:10/31/2023 Progress Notes Patient: DEANGELO FONSECA Provider: Doretha CASPER MD, F.A.C.P, F.A.S.N. :1970 A ge:52 Y S ex:Female Date:10/31/2023 Address:[address] [place] [address] Subjective: * Chief Complaints: * * Medical History: * Medications: T aking Gabapentin 300 MG Capsule 1 capsule Orally Once a day , Taking Lasix 40 MG Tablet 1 tablet Orally Once a day , Taking Ergocalciferol 1.25 MG (49741 UT) Capsule 1 capsule Orally twice a week , stop date 12/14/2023, Taking Calcitriol 0.25 MCG Capsule 1 capsule Orally Once a day , stop date 12/14/2023, Taking Myrbetriq 25 MG Tablet Extended Release 24 Hour 1 tablet Orally Once a day , stop date 12/14/2023, Taking Allopurinol 100 MG Tablet 1 tablet Orally Once a day , stop date 04/04/2024, Taking Losartan Potassium 50 MG Tablet 1 tablet Orally Once a day Objective: * Vitals: Assessment: * Assessment: 1. C hronic kidney disease, stage 3a - N18.31 (Primary) 2 . E ssential hypertension - I10 3 . O besity, unspecified - E66.9 4 . C hronic pain syndrome - G89.4 5 . H ypothyroidism, unspecified - E03.9 ? Plan: * Treatment: * Billing Information: * Visit Code: 92057 Office Visit, Est Pt., Level 4. * Procedure Codes: * Electronic signature of Pratibha Enriquez MD on 04/07/2025 at 10:04 AM GROUP HOME COUNSELOR Sign off status: Pending * Provider: Doretha CASPER MD, F.A.C.P, F.A.S.N. Date: 0 10/31/2023 Generated for Printing/Faxing/eTransmitting on: 1 06/07/2024 10:04 AM GROUP HOME COUNSELOR
--- OUTSIDE RECORDS SUMMARY | 2023-10-31 08:00 | XMS_ITS ---
Author Organization [facility] F estus Office Address 1400 [facility] 61 [facility] [address] [place] [address] Care Team Providers Care Diagnostic Tech Name Role Phone Jhonny Enriquez Unavailable [phone] Medications Medication SIG (Take, Route, Frequency, Duration) [...] 90 days 01/01/2023 Active Ergocalciferol 1.25 MG (36988 UT) 1 capsule Orally twice a week; Duration: 90 day(s) 03/19/2023 12/14/2023 Active Gabapentin 300 MG 1 capsule Orally Onc e a day; Duration: 90 day(s) 11/16/2021 Active Losartan Potassium 50 MG 1 tablet Orally Once a day; Duration: 90 07/09/2023 Active Social History Sex Assigned At : Social History Observation Description Sex Assigned At Female Encounters Encounter Location Date Provider Diagnosis [place] [facility] 2043 [facility] 15 [place] [address] 10/31/2023 Jhonny Enriquez Chronic kidney disease, stage [...] Notes * DOMONIQUE SHINOB:1970 (54 yo F)Acc No.[id number]:10/31/2023 Progress Notes Patient: DEANGELO FONSECA Provider: Doretha CASPER MD, F.A.C.P, F.A.S.N. :1970 A ge:52 Y S ex:Female Date:10/31/2023 Address:[address] [place] [address] Subjective: * Chief Complaints: * * Medical History: * Medications: T aking Gabapentin 300 MG Capsule 1 capsule Orally Once a day , Taking Lasix 40 MG Tablet 1 tablet Orally Once a day , Taking Ergocalciferol 1.25 MG (04643 UT) Capsule 1 capsule Orally twice a [...] Treatment: * Billing Information: * Visit Code: 05980 Office Visit, Est Pt., Level 4. * Procedure Codes: * Electronic signature of Pratibha Enriquez MD on 03/28/2025 at 11:18 AM SCALE MANAGER Sign off status: Pending * Provider: Doretha CASPER MD, F.A.C.P, F.A.S.N. Date: 0 10/31/2023 Generated for Printing/Faxing/eTransmitting on: 1 05/28/2024 11:18 AM SCALE MANAGER
--- OUTSIDE RECORDS SUMMARY | 2023-10-31 09:00 | XMS_ITS ---
Author Organization [facility] est[facility] Office Address 1400 [facility] 61 [facility] [address] [place] [address] Care Team Providers Care Smt Operator Name Role Phone Jhonny Enriquez Unavailable [phone] Medications Medication SIG (Take, Route, Frequency, Duration) [...] 90 days 01/01/2023 Active Ergocalciferol 1.25 MG (03746 UT) 1 capsule Orally twice a week; Duration: 90 day(s) 03/19/2023 12/14/2023 Active Gabapentin 300 MG 1 capsule Orally Onc e a day; Duration: 90 day(s) 11/16/2021 Active Losartan Potassium 50 MG 1 tablet Orally Once a day; Duration: 90 07/09/2023 Active Social History Sex Assigned At : Social History Observation Description Sex Assigned At Female Encounters Encounter Location Date Provider Diagnosis [place] [facility] 2043 [facility] 15 [place] [address] 10/31/2023 Jhonny Enriquez Chronic kidney disease, stage [...] unspecified (ICD-10 - E03.9) Plan Of Treatment Next Appt Details Provider Name:Jhonny Mina , 03/09/2025 03:15:00 PM, 2043 [facility] [address], [place], [facility], Progress Notes * DOMONIQUE SHINOB:1970 (54 yo F)Acc No.[id number]:10/31/2023 Progress Notes Patient: DEANGELO FONSECA Provider: Doretha CASPER MD, F.A.C.P, F.A.S.N. :1970 A ge:52 Y S ex:Female Date:10/31/2023 Address:[address] [place] [address] Subjective: * Chief Complaints: * * Medical History: * Medications: T aking Gabapentin 300 MG Capsule 1 capsule Orally Once a day , Taking Lasix 40 MG Tablet 1 tablet Orally Once a day , Taking Ergocalciferol 1.25 MG (95275 UT) Capsule 1 capsule Orally twice a [...] Treatment: * Billing Information: * Visit Code: 10271 Office Visit, Est Pt., Level 4. * Procedure Codes: * Electronic signature of Pratibha Enriquez MD on 02/28/2025 at 09:56 AM CDT Sign off status: Pending * Provider: Doretha CASPER MD, F.A.C.P, F.A.S.N. Date: 0 10/31/2023 Generated for Printing/Faxing/eTransmitting on: 09:56 AM CDT
--- OUTSIDE RECORDS SUMMARY | 2024-01-30 07:15 | XMS_ITS ---
Author Organization [facility] est[facility] Office Address [address], [place] [address] Care Team Providers Care Mechanotherapist Name Role Phone Mina Jhonny Unavailable [phone] Social History Sex Assigned At : Social History Observation Description Sex Assigned At Female Encounters Encounter Location Date Provider Diagnosis [place] [facility] 2043 [facility] 15 [place] [address] 01/30/2024 Jhonny Enriquez Plan Of Treatment No Information Progress Notes * SHINDOMONIQUEOB:1970 (54 yo F)Acc No.[id number]:01/30/2024 Progress Notes Patient: DEANGELO FONSECA Provider: Doretha CASPER MD, Sofia.Francia.C.P, F.A.S.N. :1970 A ge:53 Y S ex:Female Date:01/30/2024 Address:[address] [place] [address] Subjective: * Chief Complaints: * * Medical History: Objective: * Vitals: Assessment: Plan: * Treatment: * Billing Information: * Visit Code: * Procedure Codes: * Electronic signature of Pratibha Enriquez MD on 04/07/2025 at 10:04 AM WEBFOCUS DEVELOPER Sign off status: Pending * Provider: Doretha CASPER MD, Sofia.Francia.C.P, F.A.S.N. Date: 0 01/30/2024 Generated for Printing/Faxing/eTransmitting on: 06/07/2024 10:04 AM WEBFOCUS DEVELOPER
--- OUTSIDE RECORDS SUMMARY | 2024-01-30 07:15 | XMS_ITS ---
Author Organization [facility] Office Address [address], [place] [address] Care Team Providers Care Cellular Phone Repairer Name Role Phone Mina Jhonny Unavailable [phone] Social History Sex Assigned At : Social History Observation Description Sex Assigned At Female Encounters Encounter Location Date Provider Diagnosis [place] Office 2043 [facility] 15 [place] [address] 01/30/2024 Jhonny Enriquez Plan Of Treatment No Information Progress Notes * SHINDOMONIQUEOB:1970 (54 yo F)Acc No.[id number]:01/30/2024 Progress Notes Patient: DEANGELO FONSECA Provider: Doretha CASPER MD, Sofia.Francia.C.P, F.A.S.N. :1970 A ge:53 Y S ex:Female Date:01/30/2024 Address:[address] [place] [address] Subjective: * Chief Complaints: * * Medical History: Objective: * Vitals: Assessment: Plan: * Treatment: * Billing Information: * Visit Code: * Procedure Codes: * Electronic signature of Pratibha Enriquez MD on 03/28/2025 at 11:18 AM OIL TANK CAR CLEANER Sign off status: Pending * Provider: Doretha CASPER MD, Sofia.Francia.C.P, F.A.S.N. Date: 0 01/30/2024 Generated for Printing/Faxing/eTransmitting on: 05/28/2024 11:18 AM OIL TANK CAR CLEANER
--- OUTSIDE RECORDS SUMMARY | 2024-01-30 08:15 | XMS_ITS ---
Author Organization [facility] Office Address [address] [facility] [address] [place] [address] Care Team Providers Care Laser Print Operator Name Role Phone Mina Jhonny Unavailable [phone] Social History Sex Assigned At : Social History Observation Description Sex Assigned At Female Encounters Encounter Location Date Provider Diagnosis [place] [facility] [address] [place] [address] 01/30/2024 Jhonny Enriquez Plan Of Treatment Next Appt Details Provider Name:Jhonny Enriquez , 03/09/2025 03:15:00 PM, [address] [place] [address], [place], [place], [facility], Progress Notes * DOMONIQUE SHINOB:1970 (54 yo F)Acc No.[id number]:01/30/2024 Progress Notes Patient: DEANGELO FONSECA Provider: Doretha CASPER MD, Sofia.Francia.C.P, F.A.S.N. :1970 A ge:53 Y S ex:Female Date:01/30/2024 Address:[address] [place] [address] Subjective: * Chief Complaints: * * Medical History: Objective: * Vitals: Assessment: Plan: * Treatment: * Billing Information: * Visit Code: * Procedure Codes: * Electronic signature of Pratibha Enriquez MD on 02/28/2025 at 09:56 AM CDT Sign off status: Pending * Provider: Doretha CASPER MD, MaryC.P, F.A.S.N. Date: 0 01/30/2024 Generated for Printing/Faxing/eTransmitting on: 1 09:56 AM CDT
--- OUTSIDE RECORDS SUMMARY | 2025-02-01 05:45 | XMS_ITS | Continuity of Care Document ---
Author Organization [facility] Address [address] [place] [address] Phone Care Team Providers Care Shell Assembler Name Role Phone Mina MATHEWS, FACC, Chris Unavailable Unavailab le Allergies, Adverse Reactions, Alerts Substance Reaction Status Criticality propranolol Active High Medications Medication Instructions Dosage Effective Dates (start - stop) Status Comments nifedipine ER 30 mg tablet,extended release take 1 tablet by oral route every day 30 MG - Active gabapentin 300 mg capsule take one in the AM, one at 12 pm and two at night time - Active meclizine 25 mg tablet - Act carmina cyclobenzaprine 10 mg tablet TAKE 1 TABLET BY MOUTH THREE TIMES DAILY NEEDED - Active tramadol 50 mg tablet TAKE 1 TABLET BY MOUTH EVERY 6 HOURS NEEDED - Active allopurinol 100 mg tablet TAKE 1 TABLET BY MOUTH EVERY DAY DIRECTED - Active furosemide 40 mg tablet TAKE 1 TABLET BY MOUTH EVERY DAY DIRECTED - Active levothyroxine 200 mcg tablet TAKE 1 TABLET BY MOUTH EVERY DAY DIRECTED - Active triamcinolone acetonide 0.1 % topical cream - No Longer Active losartan 50 mg tablet TAKE 1 TABLET BY MOUTH EVERY DAY DIRECTED - No Longer Active naproxen 500 mg tablet No Longer Active acetaminophen 500 mg tablet TAKE 1 TABLET BY MOUTH EVERY 6 TO 8 HOURS FOR PAIN - No Longer Active amoxicillin 500 mg tablet No Longer Active ibuprofen 800 mg tablet No Longer Active cephalexin 500 mg capsule TAKE 1 CAPSULE BY MOUTH EVERY 6 HOURS UNTIL GONE No Longer Active ergocalciferol (vitamin D2) 1,250 mcg (50,000 unit) capsule No Longer Active clotrimazole 1 % topical cream APPLY THIN LAYER TO THE AFFECTED AREA TWICE DAILY UNTIL CLEAR OF SYMPTOMS No Longer Active azithromycin 250 mg tablet No Longer Active diclofenac sodium 75 mg tablet,delayed release TAKE 1 TABLET BY MOUTH TWICE DAILY No Longer Active methylprednisolone 4 mg tablets in a dose pack FOLLOW PACKAGE DIRECTIONS No Longer Active bacitracin-polymyxin B 500 unit-10,000 unit/gram eye ointment APPLY TO AFFECTED AREA 3 TIMES DAILY No Longer Active Procedures Procedure Date Complex e/m visit add on OFFICE/OUTPATIENT VISIT, EST ELECTROCARDIOGRAM, COMPLETE ELECTROCARDIOGRAM REPORT INITIAL HOSPITAL CARE SUBSEQUENT HOSPITAL CARE SUBSEQUENT HOSPITAL CARE SUBSEQUENT HOSPITAL CARE SUBSEQUENT HOSPITAL CARE FURNITURE REPRODUCER Split Share Billing FURNITURE REPRODUCER Split Share Billing FURNITURE REPRODUCER Split Share Billing SUBSEQUENT HOSPITAL CARE TTE W/DOPPLER, COMPLETE Advance Directives Directive Yes / No Effective Date File Name No Information Encounters Encounter Description Practice Location Reason(s) For Visit Diagnoses Date Provider Providers Copied on Encounter OFFICE/OUTPA TIENT VISIT, EST [facility], [facility], [place], [place], [id number] , [place] tel:[phone] [facility] Follow Up of hospital visit (chief complaint) ICU for COPD & CHF (chief complaint) Chest pain, unspecifiedDyspnea, unspecifiedEssential (primary) hypertensionObesity, unspecifiedSleep apnea, unspecifiedType 2 diabetes mellitus without complications Sep-0 5 Mina Perez. [address], [place], [place], [id number] , [place]. tel: [phone] Referring Provider: Chris Enriquez, [address], [place], [address] . tel:[phone] [facility], [address] [place] [address], [id number] , [place] tel: [phone] [facility] No Information Jan-0 5 Mina Perez. [address], [place], [place], [id number] , [place]. tel: [phone] [facility], [address] [place] [address], [id number] , [place] tel: [phone] [facility] Inpt No Information 5 Mina Perez. [address] , [place], [place], [id number] , [place]. tel: [phone] Referring Provider: Chris Enriquez, [address] , [place], [address] . tel:[phone] INITIAL HOSPITAL CARE [facility], [address] [place] [address], [id number] , [place] tel: [phone] [facility] Inpt No Information 5 Priyank Copeland. [address] , [place], [place], [id number] , [place]. tel: [phone] SUBSEQUENT HOSPITAL CARE [facility], [address] [place] [address], [id number] , [place] tel: [phone] [facility] Inpt No Information 5 Familia Kearney. [address], [address], [place], [place], [id number] , [place]. tel: [phone] SUBSEQUENT HOSPITAL CARE [facility], [address] [place], [place], [id number] , tel: [phone] [facility] Inpt No Information 5 Yahir Kennedy. [address] [place], [place], [id number] , . tel: [phone] [facility], [address] [place], [place], [id number] , tel: [phone] [facility] Inpt No Information 5 Priyank Copeland. [address] [place], [place], [id number] , . tel: [phone] Referring Provider: Chris Enriquez, [address] [place] [address], [address] . tel:[phone] [facility], [address] [place] [address], [id number] , tel: [phone] [facility] Voodoo AnemiaChest painCKDDM type IIHTNHypothyroidism, unspecifiedEdemaObes ityPalpitationsPerip heral arterial diseaseSeizure disorderSleep apneaDyspnea 5 Mina Perez. [address] [place] [address], [id number] , . tel: [phone] Family History Family Member Type Diagnosis Age At Onset Brother Problem (finding) cancer Mother Problem (finding) Diabetes mellitus Mother Problem (finding) Abnormal heart rhythm Brother Problem (finding) Diabetes mellitus Payers Payer name Insurance type Covered republican ID Authorbrittaa titeresa(s) [facility] MEDICARE ADVANTAGE HMO [id number] Social History Type Description Quantity Date Captured Comments Alcohol Use Details Unknown Caffeine Use Details Unknown Tobacco Use Status No Information Smoking Status No Information Sex Female Vital Signs Date / Time: Height Weight BMI Pulse Rate Blood Pressure Temperature Respiratory Rate Body Surface Area Head Circumference Head Circ. Percentile Wt./Rashad. Percentile BMI percentile Pulse Ox Inhaled Ox 11:00 AM 118.388 kg (261.00 lbs) 74 /min 151/85 mm[Hg] 14 /min 96 % Chief Complaint And Reason For Visit From encounter dated '02/01/2025 10:45'. Follow Up of hospital visit (chief complaint) ICU for COPD & CHF (chief complaint) Reason For Referral Reason For Referral No Information Plan Of Treatment Date Type Action Status Appointment Cassy Jernigan BOOKED History Of Present Illness Encounter Date Complaint History Of Prese nt Illness Follow Up of hospital visit ICU for COPD & CHF Functional Status Date Functional Assessmen t No Information Instructions Date Instruction Additional Infor mation No Information Assessments Type Assessment Date assessment Chest pain, unspecified 025 assessment Dyspnea, unspecified assessment Essential (primary) hypertension assessment Obesity, unspecified assessment Sleep apnea, unspecified 2024 assessment Type 2 diabetes mellitus without complications Patient Care Teams Name Effective Dates (start - stop) Status Members No Information
--- OUTSIDE RECORDS SUMMARY | 2025-02-02 09:15 | XMS_ITS ---
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) Active confirmed Encounters Encounter Location Date Provider Diagnosis [place] [facility] [address] [place] [address] 02/02/2025 Jhonny Enriquez Chronic kidney disea se, stage 3a N18.31 ; Essential hypertension I10 ; Obesity, unspecified E66.9 ; Chronic pain syndrome G89.4 ; Hypothyroidism, unspecified E03.9 ; Hyperparathyroidism, unspecified E21.3 and Sleep apnea, unspecified G47.30 Assessments Encounter Date Diagnosis (ICD Code) Assessment Notes Treatment Notes Treatment Clinical Notes Section Notes 02/02/2025 Chronic kidney disease, stage 3a (ICD-10 - N18.31) 02/02/2025 Essential hypertension (ICD-10 - I10) 02/02/2025 Obesity, unspecified (ICD-10 - E66.9) 02/02/2025 Chronic pain syndrome (ICD-10 - G89.4) 02/02/2025 Hypothyroidism, unspecified (ICD-10 - E03.9) 02/02/2025 Hyperparathyroidi sm, unspecified (ICD-10 - E21.3) 02/02/2025 Sleep apnea, unspecified (ICD-10 - G47.30) Plan Of Treatment Pending Test Test Name Order Date ALBUMIN, RANDOM URINE W/CREATININE (6517 ) 02/02/2025 PTH, INTACT AND CALCIUM (8837) COMPREHENSIVE METABOLIC PANEL (76855) URIC ACID (905) 02/02/2025 CBC (INCLUDES DIFF/PLT) (6399) URINALYSIS, COMPLETE W/REFLEX TO CULTURE (3020) 02/02/2025 URINALYSIS, COMPLETE (3263) 02/02/2025 SED RATE BY MODIFIED WESTERGREN (809) HEMOGLOBIN A1c (496) 02/02/2025 VITAMIN D,25-OH,TOTAL,IA (06049) 025 Progress Notes * DOMONIQUE SHINOB:1970 (54 yo F)Acc No.[id number]:02/02/2025 Progress Notes Patient: DEANGELO FONSECA Provider: Doretha CASPER MD, F.A.C.P, F.A.S.N. :1970 A ge:54 Y S ex:Female Date:02/02/2025 Address:[address] [place] [address] Subjective: * Chief Complaints: * * Medical History: Objective: * Vitals: Assessment: * Assessment: 1. C hronic kidney disease, stage 3a - N18.31 (Primary) 2 . E ssential hypertension - I10 3 . O besity, unspecified - E66.9 4 . C hronic pain syndrome - G89.4 5 . H ypothyroidism, unspecified - E03.9 6. H yperparathyroidism, unspecified - E21.3 7 . S leep apnea, unspecified - G47.30 Plan: * Treatment: ?LAB: PTH, INTACT AND CALCIUM (8837)* Kayy Saunders 03/08/2025 0 1:02:40 PM CDT >6 hr fasting ?LAB: COMPREHENSIVE METABOLIC PANEL (46372)* Kayy Saunders 03/08/2025 0 1:02:40 PM CDT >6 hr fasting ?LAB: URIC ACID (905)* Kayy Saunders 03/08/2025 0 1:02:40 PM CDT >6 hr fasting ?LAB: CBC (INCLUDES DIFF/PLT) (6399)* Kayy Saunders 03/08/2025 0 1:02:40 PM CDT >6 hr fasting ?LAB: URINALYSIS, COMPLETE W/REFLEX TO CULTURE (3020)* Kayy Saunders 03/08/2025 0 1:02:40 PM CDT >6 hr fasting ?LAB: URINALYSIS, COMPLETE (8313)* Kayy Saunders 03/08/2025 0 1:02:40 PM CDT >6 hr fasting ?LAB: SED RATE BY MODIFIED WESTERGREN (809)* Kayy Saunders 03/08/2025 0 1:02:40 PM CDT >6 hr fasting ?LAB: HEMOGLOBIN A1c (496)* Kayy Saunders 03/08/2025 0 1:02:40 PM CDT >6 hr fasting ?LAB: VITAMIN D,25-OH,TOTAL,IA (08483)* Kayy Saunders 03/08/2025 0 1:02:40 PM CDT >6 hr fasting * Billing Information: * Visit Code: 35488 Office Visit, New Pt., Level 5. * Procedure Codes: * Electronic signature of Pratibha Enriquez MD on 04/07/2025 at 10:03 AM LOAN TELLER Sign off status: Pending * Provider: Doretha CASPER MD, F.A.C.P, F.A.S.N. Date: 0 02/02/2025 Generated for Printing/Faxing/eTransmitting on: 1 06/07/2024 10:03 AM LOAN TELLER
--- OUTSIDE RECORDS SUMMARY | 2025-02-02 09:15 | XMS_ITS ---
Author Organization [facility] Office Address [address] [facility] [address] [place] [address] Care Team Providers Care Hosiery Operator Name Role Phone MinaTitiJhonny Unavailable [phone] Social History Sex Assigned At : Social History Observation Description Sex Assigned At Female Problems Problem Type SNOMED Code ICD Code Onset Dates Problem Status W/U Status Risk Notes Problem Hyperparathyroidism (81443125) Hyperparathyro idism, unspecified (E21.3) Active confirmed Problem Sleep apnea (71464484) Sleep baker second ea, 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) Active confirmed Encounters Encounter Location Date Provider Diagnosis [place] Hernandez [address] [place] [address] 02/02/2025 Jhonny Enriquez Chronic kidney disea se, [...] INTACT AND CALCIUM (8837) COMPREHENSIVE METABOLIC PANEL (09040) URIC ACID (905) 02/02/2025 CBC (INCLUDES DIFF/PLT) (6399) URINALYSIS, COMPLETE W/REFLEX TO CULTURE (3020) 02/02/2025 URINALYSIS, COMPLETE (0043) 02/02/2025 SED RATE BY MODIFIED WESTERGREN (809) HEMOGLOBIN A1c (496) 02/02/2025 VITAMIN D,25-OH,TOTAL,IA (03727) 025 Progress Notes * DOMONIQUE SHINOB:1970 (54 yo F)Acc No.[id number]:02/02/2025 Progress Notes Patient: DEANGELO FONSECA Provider: Doretha CASPER MD, F.A.C.P, F.A.S.N. :1970 A ge:54 Y S ex:Female Date:02/02/2025 Address:[address] [place] [address] Subjective: * Chief Complaints: * * Medical [...] >6 hr fasting ?LAB: COMPREHENSIVE METABOLIC PANEL (59996)* Kayy Saunders 03/08/2025 0 1:02:40 PM CDT >6 hr fasting ?LAB: URIC ACID (905)* Kayy Saunders 03/08/2025 0 1:02:40 PM CDT >6 hr fasting ?LAB: CBC (INCLUDES DIFF/PLT) (6399)* Kayy Saunders 03/08/2025 0 1:02:40 PM CDT >6 hr fasting ?LAB: URINALYSIS, COMPLETE W/REFLEX TO CULTURE (3020)* Kayy Saunders 03/08/2025 0 1:02:40 PM CDT >6 hr fasting ?LAB: URINALYSIS, COMPLETE (8083)* Kayy Saunders 03/08/2025 0 1:02:40 PM CDT >6 hr fasting ?LAB: SED RATE BY MODIFIED WESTERGREN (809)* Kayy Saunders 03/08/2025 0 1:02:40 PM CDT >6 hr fasting ?LAB: HEMOGLOBIN A1c (496)* Kayy Saunders 03/08/2025 0 1:02:40 PM CDT >6 hr fasting ?LAB: VITAMIN D,25-OH,TOTAL,IA (22103)* Kayy Saunders 03/08/2025 0 1:02:40 PM CDT >6 hr fasting * Billing Information: * Visit Code: 47113 Office Visit, New Pt., Level 5. * Procedure Codes: * Electronic signature of Pratibha Enriquez MD on 03/28/2025 at 11:18 AM OIL REFINERY PROCESS TECHNICIAN Sign off status: Pending * Provider: Doretha CASPER MD, F.A.C.P, F.A.S.N. Date: 0 02/02/2025 Generated for Printing/Faxing/eTransmitting on: 1 05/28/2024 11:18 AM OIL REFINERY PROCESS TECHNICIAN
--- OUTSIDE RECORDS SUMMARY | 2025-02-02 10:15 | XMS_ITS ---
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 :1970 A ge:54 Y S ex:Female Date:02/02/2025 Address:[address], [place], [place] Subjective: * Chief Complaints: * * Medical [...] apnea, unspecified - G47.30 Plan: * Treatment: * Billing Information: * Visit Code: 71963 Office Visit, New Pt., Level 5. * Procedure Codes: * Electronic signature of Pratibha Enriquez MD on 02/28/2025 at 09:55 AM CDT Sign off status: Pending * Provider: Doretha CASPER MD, Sofia.Francia.C.P, F.A.S.N. Date: 0 02/02/2025 Generated for Printing/Faxing/eTransmitting on: 1 09:55 AM CDT
--- OUTSIDE RECORDS SUMMARY | 2025-02-28 09:55 | XMS_ITS | Patient Health Record ---
Author Organization [facility] Office Address [address] [facility] [address] [place] [address] Care Team Providers Care Buffer Inflated Pad Name Role Phone Mina Jhonny Unavailable [phone] Reason For Referral No Information Medications Medication SIG (Take, Route, Frequency, Duration) Notes Start Date End Date Status Lasix 40 MG 1 tablet Orally Once a day; Duration: 90 days 01/01/2023 Active Gabapentin 300 MG 1 capsule Orally Onc e a day; Duration: 90 day(s) 11/16/2021 Active Losartan Potassium 50 MG 1 tablet Orally Once a day; Duration: 90 07/09/2023 Active Social History Sex Assigned At : Social History Observation Description Sex Assigned At Female Problems Problem Type SNOMED Code ICD Code Onset Dates Problem Status W/U Status Risk Notes Problem Hypothyroidism (99811599) Hypothyroidism, unspecified (E03.9) Active confirmed Problem Hyperparathyroidism (21491382) Hyperparathyroi dism, unspecified (E21.3) Active confirmed Problem Obesity (522086590) Obesity, unspecified (E66.9) Active confirmed Problem Sleep apnea (79981563) Sleep qa developer ea, 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) Active confirmed Problem Chronic pain syndrom e (128687511) Chronic pain syndrome (G89.4) Active confirmed Problem Essential hypertensi on (62939633) Essential hypertension (I10) Active confirmed Problem Chronic kidney disea se stage 3A (disorder) (893723387) Chronic kidney disease, stage 3a (N18.31) Active confirmed Encounters Encounter Location Date Provider Diagnosis Osmin Hernandez [id number] [place] [address] 02/02/2025 Jhonny Enriquez Chronic kidney disea se, stage 3a N18.31 ; Essential hypertension I10 ; Obesity, unspecified E66.9 ; Chronic pain syndrome G89.4 ; Hypothyroidism, unspecified E03.9 ; Hyperparathyroidism, unspecified E21.3 and Sleep apnea, unspecified G47.30 Osmin Hernandez [address] [place] [address] 02/02/2025 Jhonny Enriquez Assessments Encounter Date Diagnosis (ICD Code) Assessment [...] Enriquez , 03/09/2025 03:15:00 PM, [address], [facility] [address], [place], [address],
--- OUTSIDE RECORDS SUMMARY | 2025-02-28 09:55 | XMS_ITS | Clinical Summary ---
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 30 g 1 0 Active acetaminophen (TYLENOL) 500 mg tablet Take 1 tablet (500 mg total) by mouth every 6 (six) hours 30 tablet 1 Active oxyCODONE-aceta minophen (PERCOCET) 5-325 mg per tabletIndicatio ns:Pain Take 1 tablet by mouth every 4 (four) hours as needed for pain 8 tablet 1 Active oxyCODONE-aceta minophen (PERCOCET) 5-325 mg per tabletIndicatio ns:Pain Take 1 tablet by mouth every 4 (four) hours as needed for pain 8 tablet 1 Active methocarbamoL (ROBAXIN) 500 mg tablet Take 1 tablet (500 mg total) by mouth 2 (two) times a day 20 tablet 4 Active cyclobenzaprine (FLEXERIL) 10 mg tablet Take 1 tablet (10 mg total) by mouth 3 (three) times a day as needed 4 Active bacitracin-poly myxin B (POLYSPORIN) ophthalmic ointment Apply topically 3 (three) times a day 4 Active clotrimazole 1 % cream APPLY THIN LAYER TO THE AFFECTED AREA TWICE DAILY UNTIL CLEAR OF SYMPTOMS 5 Active gabapentin (NEURONTIN) 300 mg capsule 5 Active meclizine (ANTIVERT) 25 mg tablet Take 1 tablet (25 mg total) by mouth every 8 (eight) hours as needed 5 Active traMADoL (ULTRAM) 50 mg tablet Take 1 tablet (50 mg total) by mouth every 6 (six) hours as needed 5 Active Active Problems Problem Noted Date Diagnosed Date Obesity, unspecified 09/08/2024 History of incisional hernia repair 04/14/2024 Palpitations 07/08/2023 Atherosclerotic heart diseas e of [place] coronary artery without angina pectoris 03/14/2022 Peripheral artery disease 01/01/2022 Edema of lower extremity 06/25/2021 Essential (primary) hypertension 04/09/2021 Difficult airway for intubation 03/08/2021 Overview (03/08/2021): Extensive soft-tissue in the pharynx limits visualization of the glottis even with video laryngoscopy. Successfully intubated 03/08/21 using Vogel with Mac 4 blade and a standard bougie. Easy mask Adenoma of nipple 02/02/2021 Overview (02/02/2021): Added automatically from request for surgery [id number] Breast mass 02/01/2021 Abnormal mammogram of both breasts 01/08/2021 Osteopenia 12/21/2020 Abnormal uterine bleeding (AUB) 03/30/2020 Postoperative visit 03/30/2020 Thickened endometrium 02/19/2020 Pelvic pain 02/17/2020 Overview (02/17/2020): Added automatically from request for surgery [id number] History of endometrial ablation 02/17/2020 Overview (02/17/2020): Added automatically from request for surgery [id number] Shortness of breath 01/21/2019 Allergic rhinitis 12/10/2018 Anemia 12/10/2018 Cellulitis of umbilicus 12/10/2018 Chronic pain 12/10/2018 Dizziness 12/10/2018 Eczema 12/10/2018 Edema 12/10/2018 Fatigue 12/10/2018 Low serum vitamin B12 12/10/2018 Knee pain 12/10/2018 Insomnia 12/10/2018 Recurrent incisional hernia with incarceration 0 12/10/2018 Gout 12/10/2018 Mass of lower limb 12/10/2018 Menometrorrhagia 12/10/2018 Obstructive sleep apnea syndrome 12/10/2018 Pericardial effusion 12/10/2018 Peripheral venous insufficiency 12/10/2018 Pulmonary hypertension 12/10/2018 Restless legs 12/10/2018 Spinal stenosis 12/10/2018 Swelling of lower leg 12/10/2018 Osteoarthritis 12/10/2018 Upper respiratory infection 12/10/2018 Abnormal urinalysis 12/10/2018 Lipoma 12/10/2018 Weight loss counseling, encounter for 11/06/2018 Assessment & Plan (11/06/2018 2:01 PM CDT): Discussed that weight loss will require calorie deficit. Calculated basal metabolic rate and estimated total energy expenditure; discussed 500-1000 kcal/day deficit to lose 1-2 lb per week. Asked to keep detailed food diary for at least 1 week and bring to next visit. Discussed relatively small, although significant, role of exercise in weight loss; greater importance in weight maintenance. Reviewed importance of adequate protein intake of 1-1.2 g/kg IBW/day. Type 2 diabetes mellitus wit h chronic kidney disease, without long-term current use of insulin 11/06/2018 Assessment & Plan (11/06/2018 2:02 PM CDT): Reviewed labs. Check urine microalbumin. Discussed insulin resistance including affect on weigh. Recommended low-carb, low-glycemic diet; choose whole grains and avoid more highly processed carbohydrates. Referred to ADA and [employer] websites for additional information on topics including glycemic index/carbohydrate choices, protein sources. Start Metformin 500mg -- take daily for the 1st week, then increase to BID if tolerating. Discussed rationale in setting of insulin resistance. Discussed risks, benefits, alternatives, and potential side effects. Consider GLP-1 RA. Hypothyroidism 11/06/2018 Assessment & Plan (11/06/2018 2:01 PM CDT): TSH/T4. History of sleep apnea 11/06/2018 Assessment & Plan (11/06/2018 2:03 PM CDT): Discussed comorbidities associated with sleep apnea, including effects on weight, and stressed importance of adequate treatment if present. Recommended she discuss repeat sleep study with PCP. Class 3 severe obesity due t o excess calories with serious comorbidity and body mass index (BMI) of 60.0 to 69.9 in adult 11/06/2018 Overview (11/06/2018): S/P sleeve gastrectomy 2012; prior to surgery, 315 lb, BMI 63. Assessment & Plan (11/06/2018 2:08 PM CDT): Obesity is worsening. Discussed the patient's BMI. The BMI is elevated; plan as noted. General weight loss/lifestyle modification strategies discussed (elicit support from others; identify saboteurs; non-food rewards, etc). Behavioral treatment: recommended counseling. Diet interventions: as noted. Informal exercise measures discussed, e.g. taking stairs instead of elevator. Regular aerobic exercise program discussed. Pharmacotherapy as ordered. Elevated blood pressure reading 11/06/2018 Assessment & Plan (11/06/2018 2:11 PM CDT): Reviewed role of diet, exercise, weight loss in controlling blood pressure. Recommended low sodium/DASH diet. Recommended starting KWABENA-I. Congestive heart failure 11/06/2018 Chronic back pain 11/06/2018 Gastroesophageal reflux disease 11/06/2018 Hyperlipidemia 11/06/2018 Increased creatine kinase level 11/06/2018 Renal impairment 11/06/2018 Steatosis of liver 11/06/2018 Stage 3 chronic kidney disease 03/27/2015 Iron deficiency anemia 02/26/2015 Malabsorption 04/19/2013 Assessment & Plan (11/06/2018 2:03 PM CDT): Reviewed labs. Morbid obesity 02/24/2012 Never smoked tobacco 08/01/2010 Overview (09/04/2017): Description: 07/28/2012 da Hernia of anterior abdominal wall 04/11/2010 Immunizations Immunization Administration Dates Next Due Influenza, Quadrivalent, Spl it, Preservative Free, Intramuscular 03/20/2020,03/03/2018,02/22/2016,02/02 Influenza, Trivalent, Preser vative Free, Intramuscular 03/03/2013 Influenza, Unspecified 01/18/2014 Surgical History Surgery Date Site/Laterality Comments SLEEVE GASTROPLASTY gastric sleeve SECTION 05/26/1992 - 05/25/1993 , 1993 SECTION 1992, 1993 OTHER SURGICAL HISTORY 2003, 2013 Right tumor on right knee COMBINED HYSTEROSCOPY DIAGNOSTIC / D&C ENDOMETRIAL ABLATION HYSTERECTOMY W/ BILATERAL SALPINGOOPHORECTOMY Bilateral HERNIA REPAIR Hernia repair x9 TONSILLECTOMY as child COLONOSCOPY BREAST BIOPSY 01/17/2021 Right syringomatous adenoma of the nipple UPPER GASTROINTESTINAL ENDOSCOPY LEG SURGERY Right removal of fatty tumors x 6 MASTECTOMY W/ NODES PARTIAL 03/08/2021 Bilateral and B/L SLNB (0/3); syringomatous adenoma of the nipple; Aft BREAST EXCISIONAL BIOPSY 04/05/2021 Left Re-excision; syringomatous adenoma of the nipple; Aft Medical History Medical History Date Comments Kidney disorder Kidney disease; Comments: [facility] 06/20/2016 - Disorder of thyroid Thyroid dise ase Hx Other Medical hyperparathyroi dism; Comments: [facility] 06/20/2016 - Hx Other Medical pyuria; Comment s: [facility] 06/20/2016 - Generalized headaches Hypothyroidism Osteoporosis Paula's palsy 1991 Sleep apnea previous LM +, gastric sleeve weigh loss, cleared by sleep study after weight loss Hard to intubate 03/08/2021 Easy mask, but difficult intubation due to extensive soft tissue in the pharynx that makes the glottis difficult to visualize even with video laryngoscopy. GERD (gastroesophageal reflux disease) Cancer (HCC) skin cancer on l ip, arm, breast cancer Essential (primary) hypertension 04/09/2021 Family History Medical History Relation Name Comments Alcohol abuse Father Bone cancer Father Brain cancer Father Cancer Father Lung cancer Father Cancer, lung; Alcohol abuse Mother COPD Mother COPD; Diabetes type II Mother Diabetes me llitus type 2; Heart disease Mother Ovarian cancer Mother Skin cancer Mother Cancer, skin; Breast cancer Mother's Sister Diabetes type II Sister 1 Diabetes me llitus type 2; Breast cancer Sister 2 Cancer, breast ; Lupus Sister 3 Lupus erythemat osus; Testicular cancer Son Relation Name Status Comments Father Mother Mother's Sister Sister 1 Sister 2 Sister 3 Son Social History Tobacco Use Types Packs/Day Years Used Date Smoking Tobacco: Never Smokeless Tobacco: Never Tobacco Cessation:Counseling Given: Not Answered Alcohol Use Standard Drinks/Week Comments No 0 (1 standard drink = 0.6 oz pur e alcohol) AUDIT-C Answer Date Recorded Q1: How often do you have a drink containing alcohol? Never 05/13/2024 Q2: How many drinks containi ng alcohol do you have on a typical day when you are drinking? Patient does not drink Q3: How often do you have si x or more drinks on one occasion? Never 05/13/2024 Personal Safety Answer Date Recorded Have you ever been in or are you currently in a harmful physical or emotional relationship or is someone making you feel afraid or unsafe? Denies 08/11/2023 Comments No Sex and Gender Information Value Date Recorded Sex Assigned at Not on file Legal Sex Female 10:15 AM AUTHOR'S AGENT Gender Identity Not on file Sexual Orientation Not on file Obstetrics History Para Term AB IAB SAB Ectopic Multiple Livin g Live Births 2 2 2 2 Date Outcome GA Total Labor Labor/2nd/3rd Weight Sex Type Anes PTL Tawanna A1 A5 Name Clin Term Term Last Filed Vital Signs Vital Sign Reading Time Taken Comments Blood Pressure 158/87 04/14/2024 2:30 PM AUTHOR'S AGENT Pulse 80 04/14/2024 2:30 PM AUTHOR'S AGENT Temperature 36.4 C (97.5 F) 04/14/2024 2:30 PM AUTHOR'S AGENT Respiratory Rate 18 08/11/2023 2:45 PM CDT Oxygen Saturation 93% 04/14/2024 2:30 PM AUTHOR'S AGENT Inhaled Oxygen Concentration - - Weight 116.6 kg (257 lb) 04/14/2024 2:30 PM AUTHOR'S AGENT Height 147.3 cm (4' 10) 04/14/2024 2:30 PM AUTHOR'S AGENT Body Mass Index 53.71 04/14/2024 2:30 PM AUTHOR'S AGENT Plan of Treatment Health Maintenance Due Date Last Done Comments Albumin Creatinine Ratio, Urine 1969 Colon Cancer Screening-Colonoscopy 1969 Hepatitis C Screening 1969 Dilated Eye Exam 1969 Foot Exam 1969 Hepatitis B Screening 12/14/1987 Regular Well Visit/Exam 18-64 12/14/1987 Depression Screening 02/20/2018 02/20/2017 Lipid Panel 10/27/2019 10/26/2018, 12/24, 09/17/2012 Zoster Vaccine (1 of 2) 12/14/2019 Hemoglobin A1C 09/11/2020 03/13/2020, 10/26/2018 Pneumococcal vaccine <65 (2 of 2 - PPSV23, PCV20, or PCV21) 01/18/2021 11/23/2020 eGFR 02/20/2022 02/20/2021, 10/26/2018 Covid-19 Vaccine (2 - 2024-2 6 season) 2025 07/31/2020 Influenza Vaccine (#1) 2025 , 03/20/2020, 08/15/2019, Additional history exists Breast Cancer Screening-Mammogram 01/29/2025 024, 04/17/2022 DTaP/Tdap/Td Vaccine (3 - Td or Tdap) 03/23/2034 03/23/2024, 07/06/2020 Medical Devices Implanted Type Area [employer] Tech Device Identifier Shelf Expiration Date Model / Serial / Lot [employer] [id number] Magseed 18ga 7cm Marker Breast Biopsy - [id number] Implanted:Qty: 2 on 03/01/2021 at [facility] [employer] [id number] 07/23/2024 [id number] / / [id number] [employer] [id number] Magseed 18ga 7cm Marker Breast Biopsy - [id number] Implanted:Qty: 1 on 03/01/2021 at [facility] [employer] [id number] 07/23/2024 [id number] / / [id number] Procedures Procedure Name Priority Date/Time Associated Diagnosis Comments DIAGNOSTIC MAMMOGRAM BILATERAL W JERAD Schedule Routine, Read Routine (OP Routine) 01/30/2024 10:57 AM CDT Breast pain in female EGFR Routine 02/20/2021 10:51 AM CDT Abnormal mammogram POCT HEMOGLOBIN A1C Routine 03/13/2020 11:33 AM CDT LIPID PANEL Routine 10/26/2018 4:12 PM CDT Bariatric surgery status Intestinal malabsorption, unspecified type Morbid obesity (HCC) Weight gain from Last 3 Months or Most Recently Relevant to Health Maintenance Results * Diagnostic Mammogram Bilateral W Jerad (01/30/2024 10:57 AM CDT) Anatomical Region Laterality Modality Breast Bilateral Mammography 01/30/2024 1:22 PM CDT Impressions 01/30/2024 1:22 PM CDT 1. No suspicious mammographic or sonographic abnormality in the areas of clinical concern in the bilateral axilla or the retroareolar breast. Bilateral scarring is seen in the retroareolar breast which may account for the patient's reported nipple retraction. 2. Probably benign area of fat necrosis in the left breast at 2:30, 2 cm from the nipple. Short-term follow-up with left breast ultrasound is recommended. 3. Incidentally noted enlarged low-lying right axillary lymph node. Ultrasound-guided biopsy is recommended. 4. Left outer breast asymmetry with a sonographic correlate at 2:30, 8 cm from the nipple, low suspicion for malignancy. Ultrasound-guided biopsy is recommended. The method of initial detection of finding was patient-reported clinical symptom (Pat). OVERALL FINAL ASSESSMENT: SUSPICIOUS. BI-RADS Category 4A: Low suspicion for malignancy. RECOMMENDATION: 1. Ultrasound-guided biopsy of RIGHT axillary lymph node and LEFT 2:30, 8 cm from the nipple area of heterogeneous glandular tissue, x2. 2. Short-term follow-up with left breast ultrasound of probable fat necrosis at 2:30, 2 cm from the nipple. Dr. Mary Ann Reeves discussed the above findings and recommendations with the patient. She has been scheduled to return to the [facility] for biopsy on 02/09/2024. This facility will contact the referring clinician's office for an order. The radiology attending physician has personally reviewed this study, and had reviewed and/or edited this written report and agrees with it. Electronically signed by: Mary Ann Reeves M.D. Narrative 01/30/2024 1:22 PM CDT EXAMINATION: BILATERAL DIGITAL DIAGNOSTIC MAMMOGRAM INCLUDING CAD AND BILATERAL DIGITAL BREAST TOMOSYNTHESIS; BILATERAL BREAST SONOGRAM HISTORY: 53-year-old female presents with multiple palpable complaints and the bilateral retroareolar breasts and axilla, as well as bilateral nipple retraction. Patient has history of bilateral breast conservation therapy. COMPARISON: Multiple prior studies which date back to 06/22/2012, the most recent on 04/17/2022. TECHNIQUE: Full field digital mammographic views of BOTH breasts were performed, including computer aided detection (CAD) and BILATERAL digital breast tomosynthesis (DBT). Directed ultrasound evaluation of BOTH breasts was performed. BREAST PARENCHYMAL COMPOSITION: There are scattered areas of fibroglandular density. MAMMOGRAM FINDINGS: There are breast conservation therapy changes manifest by postsurgical changes in both breasts in the retroareolar breast and axilla. There are areas of palpable concern indicated by triangular skin markers in both axillae. There is no suspicious mass, distortion, or calcification subjacent to either marker. There are rectangular skin markers indicating areas of pain in the bilateral periareolar regions. The nipples are inverted bilaterally without significant changes from prior exams. Postsurgical changes are seen in the retroareolar breast bilaterally. There is an asymmetry in the LEFT outer breast anterior depth seen only on the craniocaudal view, which partially persists on the additional spot compression views. SONOGRAM FINDINGS: Right breast: Evaluation of the right axillary area of palpable concern demonstrates no suspicious cystic or solid abnormality. In the right axilla, there is a single low lying axillary lymph nodes with thickened cortex with internal cortical vascularity which measures 0.5 cm. This lymph node is different from other lymph nodes in the area which demonstrate normal morphology. Subareolar breast, 10:00, in the area of postsurgical scar, there is a 0.7 cm area of evolving fat necrosis, which corresponds to region of fat necrosis seen on mammogram. Postsurgical scarring is seen in the right subareolar breast without associated suspicious cystic or solid mass to account for the patient's nipple or traction. Left breast: Evaluation of the left axilla, area of palpable concern demonstrates no suspicious cystic or solid mass. Morphologically benign-appearing left axillary lymph nodes are present. In the left subareolar breast, area of nipple retraction, postsurgical changes are seen without suspicious cystic or solid mass. Incidentally noted, 12:30, 2 cm from the nipple, there is a 0.8 x 0.4 x 0.6 cm oval hypoechoic mass similar in appearance to the right breast area of evolving fat necrosis and is probably benign. 2:30, 8 cm from the nipple, there is an area of heterogeneous glandular tissue with internal hypoechoic regions without associated vascularity that is felt to correspond to the left outer breast asymmetry. Procedure Note Mary Ann Reeves MD - 01/30/2024 EXAMINATION: BILATERAL DIGITAL DIAGNOSTIC MAMMOGRAM INCLUDING CAD AND BILATERAL DIGITAL BREAST TOMOSYNTHESIS; BILATERAL BREAST SONOGRAM HISTORY: 53-year-old female presents with multiple palpable complaints and the bilateral retroareolar breasts and axilla, as well as bilateral nipple retraction. Patient has history of bilateral breast conservation therapy. COMPARISON: Multiple prior studies which date back to 06/22/2012, the most recent on 04/17/2022. TECHNIQUE: Full field digital mammographic views of BOTH breasts were performed, including computer aided detection (CAD) and BILATERAL digital breast tomosynthesis (DBT). Directed ultrasound evaluation of BOTH breasts was performed. BREAST PARENCHYMAL COMPOSITION: There are scattered areas of fibroglandular density. MAMMOGRAM FINDINGS: There are breast conservation therapy changes manifest by postsurgical changes in both breasts in the retroareolar breast and axilla. There are areas of palpable concern indicated by triangular skin markers in both axillae. There is no suspicious mass, distortion, or calcification subjacent to either marker. There are rectangular skin markers indicating areas of pain in the bilateral periareolar regions. The nipples are inverted bilaterally without significant changes from prior exams. Postsurgical changes are seen in the retroareolar breast bilaterally. There is an asymmetry in the LEFT outer breast anterior depth seen only on the craniocaudal view, which partially persists on the additional spot compression views. SONOGRAM FINDINGS: Right breast: Evaluation of the right axillary area of palpable concern demonstrates no suspicious cystic or solid abnormality. In the right axilla, there is a single low lying axillary lymph nodes with thickened cortex with internal cortical vascularity which measures 0.5 cm. This lymph node is different from other lymph nodes in the area which demonstrate normal morphology. Subareolar breast, 10:00, in the area of postsurgical scar, there is a 0.7 cm area of evolving fat necrosis, which corresponds to region of fat necrosis seen on mammogram. Postsurgical scarring is seen in the right subareolar breast without associated suspicious cystic or solid mass to account for the patient's nipple or traction. Left breast: Evaluation of the left axilla, area of palpable concern demonstrates no suspicious cystic or solid mass. Morphologically benign-appearing left axillary lymph nodes are present. In the left subareolar breast, area of nipple retraction, postsurgical changes are seen without suspicious cystic or solid mass. Incidentally noted, 12:30, 2 cm from the nipple, there is a 0.8 x 0.4 x 0.6 cm oval hypoechoic mass similar in appearance to the right breast area of evolving fat necrosis and is probably benign. 2:30, 8 cm from the nipple, there is an area of heterogeneous glandular tissue with internal hypoechoic regions without associated vascularity that is felt to correspond to the left outer breast asymmetry. IMPRESSION: 1. No suspicious mammographic or sonographic abnormality in the areas of clinical concern in the bilateral axilla or the retroareolar breast. Bilateral scarring is seen in the retroareolar breast which may account for the patient's reported nipple retraction. 2. Probably benign area of fat necrosis in the left breast at 2:30, 2 cm from the nipple. Short-term follow-up with left breast ultrasound is recommended. 3. Incidentally noted enlarged low-lying right axillary lymph node. Ultrasound-guided biopsy is recommended. 4. Left outer breast asymmetry with a sonographic correlate at 2:30, 8 cm from the nipple, low suspicion for malignancy. Ultrasound-guided biopsy is recommended. The method of initial detection of finding was patient-reported clinical symptom (Pat). OVERALL FINAL ASSESSMENT: SUSPICIOUS. BI-RADS Category 4A: Low suspicion for malignancy. RECOMMENDATION: 1. Ultrasound-guided biopsy of RIGHT axillary lymph node and LEFT 2:30, 8 cm from the nipple area of heterogeneous glandular tissue, x2. 2. Short-term follow-up with left breast ultrasound of probable fat necrosis at 2:30, 2 cm from the nipple. Dr. Mary Ann Reeves discussed the above findings and recommendations with the patient. She has been scheduled to return to the [facility] for biopsy on 02/09/2024. This facility will contact the referring clinician's office for an order. The radiology attending physician has personally reviewed this study, and had reviewed and/or edited this written report and agrees with it. Electronically signed by: Mary Ann Reeves M.D. us Hanny Hernandez MD PhD IMG MAMMO PROCEDURES Final Result * (ABNORMAL) eGFR (02/20/2021 10:51 AM CDT) eGFR 42(L) 90 - 130 mL/min/1.7 3 m2 [facility] Comment: Interpretive Data Reference Interval Normal >/= 90 mL/min/1.73m2 Mildly decreased* 60 - 89 mL/min/1.73m2 Mildly to moderately decreased 45 - 59 mL/min/1.73m2 Moderately to severely decreased 30 - 44 mL/min/1.73m2 Severely decreased 15 - 29 mL/min/1.73m2 Kidney Failure < 15 mL/min/1.73m2 *Relative to young adult level Estimated glomerular filtration rate is determined by the CKD-EPI equation recommended by the National Kidney Foundation (KDIGO 2012 Clinical Practice Guideline for the Evaluation and Management of Chronic Kidney Disease. Kidney Intnl Suppl May 2012;3:1). The CKD-EPI equation should not be used for patients with unstable renal function and has not been validated in children and those over 70. Current interpretive data was last reviewed 2020 Blood 02/20/2021 10:5 1 AM CDT 02/20/2021 11:13 AM CDT us Hanny Hernandez MD PhD LAB BLOOD ORDERABLES Final Result [facility] Department [place] [address] * POCT hemoglobin A1c (03/13/2020 11:33 AM CDT) Hgb A1C, POC 5.8 4.0 - 6.0 % [facility] Est Average Gluc POC 120 mg/dL [facility] Comment: The ADA recommends reporting an estimated Average Glucose (eAG) with all Hemoglobin A1c results using the equation derived from a study of 507 normal and diabetic adults. Minority populations were underrepresented and children were not included. (Diabetes Care 31:4579-7313, 2008). The eAG is not equivalent to a fasting glucose. Blood specimen (specimen) 03/13/2020 11:33 AM CDT 03/13/2020 11:33 AM CDT us Jamie Moreno MD POINT OF CARE TEST ORDER OSMANY Final Result [facility] [place] [address] * (ABNORMAL) Lipid panel (10/26/2018 4:12 PM CDT) Cholesterol 187 30 - 199 mg/dL [facility] Comment: Interpretive Data Ages < or = 19 years Acceptable: <170 mg/dL Borderline high: 170-199 mg/dL High: >or= 200 mg/dL Ages > or = 20 years Desirable: <200 mg/dL Borderline high: 200-239 mg/dL High: >or= 240 mg/dL Literature References: 1. Expert Panel on Integrated Guidelines for Cardiovascular Health and Risk Reduction in Children and Adolescents. Pediatrics 2011;128:S213 2. NCEP Expert Panel. Circulation 2004;110:227 Current Interpretive Data was last revised on 2018. Triglycerides 284(H) <=149 mg/dL [facility] Comment: Interpretive Data Ages < or = 9 years Acceptable: <75 mg/dL Borderline high: 75-99 mg/dL High: >or= 100 mg/dL Ages 10 to 20 years Acceptable: <90 mg/dL Borderline high: 90-129 mg/dL High: >or= 130 mg/dL Ages > or = 20 years Desirable: <150 mg/dL Borderline high: 150-199 mg/dL High: 200-499 mg/dL Very high: >or= 499 mg/dL Literature References: 1. Expert Panel on Integrated Guidelines for Cardiovascular Health and Risk Reduction in Children and Adolescents. Pediatrics 2011;128:S213 2. NCEP Expert Panel. Circulation 2004;110:227 Current Interpretive Data was last revised on 2018. HDL 32(L) >=40 mg/dL [facility] Comment: Interpretive Data Ages < or = 19 years Acceptable: >45 mg/dL Borderline low: 40-45 mg/dL Low: <40 mg/dL Ages > or = 20 years Desirable: >or= 60 mg/dL Low: <40 mg/dL Literature References: 1. Expert Panel on Integrated Guidelines for Cardiovascular Health and Risk Reduction in Children and Adolescents. Pediatrics 2011;128:S213 2. NCEP Expert Panel. Circulation 2004;110:227 Current Interpretive Data was last revised on 2018. LDL, calculated 98 <=129 mg/dL [facility] Comment: Interpretive Data Ages < or = 19 years Acceptable: <110 mg/dL Borderline high: 110-129 mg/dL High: >or= 130 mg/dL Ages > or = 20 years Optimal: <100 mg/dL Near optimal: 100-129 mg/dL Borderline high: 130-159 mg/dL High: >160 mg/dL Literature References: 1. Expert Panel on Integrated Guidelines for Cardiovascular Health and Risk Reduction in Children and Adolescents. Pediatrics 2011;128:S213 2. NCEP Expert Panel. Circulation 2004;110:227 Current Interpretive Data was last revised on 2018. Non-HDL Cholesterol 155 mg/dL [facility] Comment: Interpretive Data Ages < or = 19 years Acceptable: <120 mg/dL Borderline high: 120-144 mg/dL High: >145 mg/dL Ages > or = 20 years When triglycerides are >200 mg/dL, Non-HDL cholesterol is a secondary target of therapy with treatment goals that are 30 mg/dL greater than the LDL cholesterol target. Literature References: 1. Expert Panel on Integrated Guidelines for Cardiovascular Health and Risk Reduction in Children and Adolescents. Pediatrics 2011;128:S213 2. NCEP Expert Panel. Circulation 2004;110:227 Current Interpretive Data was last revised on 2018. Chol/HDL ratio 6 [facility] Blood specimen (specimen) 10/26/2018 4:12 PM CDT 10/26/2018 4:12 PM CDT Narrative [facility] - 10/26/2018 5:17 PM CDT Yonny White DB2 DEVELOPER LAB BLOOD ORDERABLES Final Result Performing Organization Address City/State/ZIP Co md Phone Number [facility] [id number] 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
--- OUTSIDE RECORDS SUMMARY | 2025-02-28 09:55 | XMS_ITS | Clinical Summary ---
Author Organization [facility] Address [facility] [place] [address] Care Team Providers Care Floater Operator Name Role Phone None, Provider MD Primary Care Provider Unavaila ble Allergies No known active allergies Medications tiZANidine (ZANAFLEX) 4 MG tablet Take 1 tablet (4 mg total) by mouth every 8 (eight) hours as needed. 12 tablet 01/01/2024 Active lidocaine 4 % patch Place 1 patch onto the skin daily. Remove & Discard patch within 12 hours or as directed by MD 30 patch 01/01/2024 Active fluticasone propionate (FLONASE) 50 MCG/ACT nasal spray 1-2 sprays by Nasal route daily. 1-2 sprays in each nostril qd; Start: 2 sprays in each nostril qd x1wk; Max: 2 sprays in each nostril/day 16 g 02/02/2024 Active Social History Tobacco Use Types Packs/Day Years Used Date Smoking Tobacco: Never Smokeless Tobacco: Never Tobacco Cessation:Counseling Given: Not Answered Alcohol Use Standard Drinks/Week Comments Not Currently 0 (1 standard drink = 0.6 oz pur e alcohol) Comments No Sex and Gender Information Value Date Recorded Sex Assigned at Not on file Legal Sex Female 4:25 PM CDT Gender Identity Not on file Sexual Orientation Not on file Last Filed Vital Signs Vital Sign Reading Time Taken Comments Blood Pressure 167/98 02/10/2024 10:30 PM CDT Pulse 71 02/10/2024 9:30 PM CDT Temperature 36.1 C (97 F) 02/10/2024 6:28 PM CDT Respiratory Rate 18 02/10/2024 6:28 PM CDT Oxygen Saturation 96% 02/10/2024 10:35 PM CDT Inhaled Oxygen Concentration - - Weight 117 kg (257 lb 15 oz) 02/10/2024 6:28 PM CDT Height 147.3 cm (4' 10) 02/10/2024 6:28 PM CDT Body Mass Index 53.91 02/10/2024 6:28 PM CDT Plan of Treatment Health Maintenance Due Date Last Done Comments Colorectal Cancer Screening Colonoscopy (10 Years) 1969 Annual Physical 1972 Hepatitis C 12/14/1987 Hepatitis B Vaccines (1 of 3 - 19+ 3-dose series) 1988 Pneumococcal Vaccine: 50+ Years (2 of 2 - PPSV23) 11/23/2021 11/23/2020 Zoster Vaccines (2 of 2) 04/18/2023 02/21/2023 COVID-19 Vaccine (2 - season) 2025 07/31/2020 Influenza Adult (#1) 2025 02/21/2023, 02/17/2021, 03/20/2020, Additional history exists Mammogram Screening 01/29/2026 01/30/2024, 04/17/2022, 01/08/2021 DTaP, Tdap and Td Vaccines (2 - Td or Tdap) 07/06/2030 07/06/2020 Meningococcal B Vaccine Aged Out No l onger eligible based on patient's age to complete this topic Meningococcal Vaccine Aged Out No sandrita kam eligible based on patient's age to complete this topic RSV Immunizations Under 20 Months Aged Out No longer eligible based on patient's age to complete this topic Insurance [employer] MEDICARE Member Subscriber Plan / Payer (Ef fective 2023-Present) Name:Cassy Jernigan Relation to Subscriber:Self Name:Cassy Jernigan Payer ID:[id number] (NAIC) Type:Not on file Address: [facility] [address] [place] [phone] Care Teams Floater Operator Relationship Specialty Start Date End Date None, Provider, MD PCP - General UNKNOWN PHYSICIAN SPECIALTY 02/02/24
--- OUTSIDE RECORDS SUMMARY | 2025-02-28 09:55 | XMS_ITS | Clinical Summary ---
Author Organization [facility] Address [address] [place] [address] Care Team Providers Care Shipbuilding Draftsperson Name Role Phone None, Physician Primary Care Provider Unavailabl e Source Comments [facility],non-owned Affiliates and Associated Physician Practices is amultiple site organization consisting of ambulatory clinics and hospital sitesin [place], [place], [place] and [place]. This disclosure is being madepursuant to the Care Everywhere program and may not contain all information available regarding this patient. Last updated 18.[facility] Allergies No known active allergies Medications * Be aware that medications may not be up to date on this document. Alwaysverify current medications with the patient. bacitracin-poly myxin b (Polysporin) [id number] UNIT/GM ophthalmic ointment Apply to affected area 3 times daily 3.5 g 03/24/2024 Active naproxen (Naprosyn) 500 MG tablet Take 1 (one) tablet by mouth 2 times daily 30 tablet 03/24/2024 Active Active Problems Problem Noted Date Diagnosed Date Type 2 diabetes mellitus without complication Overview (02/23/2025): IMO 02/23/2025 Atherosclerotic heart diseas e of [place] coronary artery without angina pectoris 03/14/2022 Peripheral artery disease 01/01/2022 Essential (primary) hypertension 04/09/2021 Osteopenia 12/21/2020 Spinal stenosis 12/10/2018 Pulmonary hypertension 12/10/2018 Osteoarthrosis 12/10/2018 Hypothyroidism 11/06/2018 Overview (03/14/2022): Last Assessment & Plan: TSH/T4. 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 Gender Identity Not on file Sexual Orientation Not on file Last Filed Vital Signs Vital Sign Reading Time Taken Comments Blood Pressure 148/77 03/23/2024 6:14 PM CDT Pulse 73 03/23/2024 6:14 PM CDT Temperature 36.7 C (98 F) 03/23/2024 6:14 PM CDT Respiratory Rate 16 03/23/2024 6:14 PM CDT Oxygen Saturation 96% 03/23/2024 6:14 PM CDT Inhaled Oxygen Concentration - - Weight 111.1 kg (245 lb) 03/23/2024 12:36 PM CDT Height 147.3 cm (4' 10) 03/23/2024 12:36 PM CDT Body Mass Index 51.21 03/23/2024 12:36 PM CDT Plan of Treatment Health Maintenance Due Date Last Done Comments COLOGUARD (AGES 45-75) - COLON CA SCREENING 1969 COLON MONITORING 1969 COLONOSCOPY - COLON CA SCREENING 1969 CT COLONOGRAPHY - COLON CA SCREENING 1969 Colorectal Cancer Screening 1969 FIT - COLON CA SCREENING 1969 FLEX SIG - COLON CA SCREENING 1969 HIV SCREENING 1984 HEPATITIS C SCREENING 12/09/1987 HEPATITIS B VACCINE (1 of 3 - 19+ 3-dose series) 1988 PNEUMOCOCCAL VACCINE 50+ (1 of 2 - PCV) 1988 PAP SMEAR 1990 DIABETES-STATIN 2009 ZOSTER VACCINE (1 of 2) 12/14/2019 HEPATITIS A VACCINE (2 of 2 - Risk 2-dose series) 12/23/2020 06/25/2020 DIABETES RETINOPATHY SCREENING 03/14/2022 DIABETES-FOOT EXAM WITH MONOFILAMENT 03/14/2022 DIABETES-HGB A1C 03/14/2022 03/13/2020 DEPRESSION SCREENING 05/26/2024 DIABETES - URINE PROTEIN SCREENING 05/26/2024 MEDICARE AWV CALENDAR YEAR 2024 COVID-19 VACCINE (2 - season) 2025 07/31/2020 INFLUENZA VACCINE (#1) 2025 , 02/17/2021, 03/20/2020, Additional history exists DIABETES-SERUM CREATININE 02/09/2025 02/10/2024, MAMMOGRAM 01/29/2026 01/30/2024, 04/17/2022 DTAP/TDAP/TD VACCINES (2 - Td or Tdap) 03/23/2034 03/23/2024 HIB VACCINE Aged Out No longer eligi ble based on patient's age to complete this topic HPV VACCINE Aged Out No longer eligi ble based on patient's age to complete this topic MENINGOCOCCAL (Group B) VACCINE SHARED DECISION-MAKING Aged Out No longer eligible based on patient's age to complete this topic MENINGOCOCCAL GROUPS A/C/Y/W VACCINE Aged Out No longer eligible based on patient's age to complete this topic Insurance [employer] MEDICARE ADV [address] [place] [id number] [address] [facility] [employer] Care Teams Shipbuilding Draftsperson Relationship Specialty Start Date End Date None, Physician [address] [place] [address] PCP - General 03/23/24
--- OUTSIDE RECORDS SUMMARY | 2025-02-28 09:56 | XMS_ITS | Encounter Summary ---
Author Organization [facility] Address [address] [place] [address] Phone Care Team Providers Care Cisco Certified Internetwork Expert Name Role Phone Noemi Charles NP Primary Care Provider [phone] Daniele Eugene MD Unavailable [phone] No, Physician Primary Care Provider [phone] Kalie Kaufman NP Primary Care Provider [phone] Encounter Details Date Type Department Care Team (Latest Contact Info) Description 11/06/2018 Orders Only [facility] Scanning, Provider Social History Tobacco Use Types Packs/Day Years Used Date Smoking Tobacco: Never Smokeless Tobacco: Never Alcohol Use Standard Drinks/Week Comments No 0 (1 standard drink = 0.6 oz pur e alcohol) Comments Unknown Sex and Gender Information Value Date Recorded Sex Assigned at Not on file Legal Sex Female 10:15 AM 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 Gender Identity Not on file Sexual Orientation Not on file documented as of this encounter Plan of Treatment Not on file documented as of this encounter Procedures Procedure Name Priority Date/Time Associated Diagnosis Comments SCAN - LABS 11/06/2018 documented in this encounter Results * SCAN - LABS (11/06/2018) us Provider Scanning Final Result documented in this encounter Visit Diagnoses Not on filedocumented in this encounter Care Teams Cisco Certified Internetwork Expert Relationship Specialty Start Date End Date Noemi Charles NP PCP - General 08/23/16 04/13/24 No, Physician PCP - General 04/14/24 05/16/24 Kalie Kaufman NP [address] [facility] [address] [place], [place] [id number] PCP - General Family Medicine 05/17/24 Daniele Eugene MD [address] [place] [address] Referring Physician Obstetrics and Gynecology 12/07/18 documented as of this encounter
--- OUTSIDE RECORDS SUMMARY | 2025-02-28 09:56 | XMS_ITS | Data Portability ---
Author Organization [facility] [employer], Main Office Address [address] [place] [address] Assessment Encounter Date Assessment Date Assessment LastModified by Organization Details LastModified Time 01/27/2025 01/27/2025 Time spent with patient included: preparing to see patient by reviewing tests, obtaining and reviewing history, medical examination and evaluation, counseling and educating the patient, ordering medications and tests, documenting clinical information in EHR, independently interpreting results and communicating results to the patient for a total of 51 minutes. [email or web address] Not available 01/27/2025 11:35:48 Plan of Treatment Reminders Order Date Submit Date Provider Last Modified By Organization Details Last Modified Time Details Appointments None recorded . Lab noninvas faith colorect al cancer DNA + occult blood screenin g, QL, stool 2023 024 2 [employer], [address], [address], [place], [address], 5 11:14:59 hepatiti s C virus Ab, serum 2023 024 [facility], [address] [place], [address], 4 06:45:36 uric acid, serum or plasma 2023 024 [email or web address] Not available 4 08:51:15 BNP (B-type natriure tic peptide) , serum or plasma 2023 024 [email or web address] Not available 4 08:51:16 lipid panel, serum 2023 024 [email or web address] Not available 4 08:51:15 CMP, serum or plasma 2023 024 [email or web address] Not available 4 08:51:16 CBC w/ auto diff 2023 024 JEREMY Not available 4 18:35:50 HbA1c (hemoglo bin A1c), blood 2023 024 [email or web address] Not available 4 08:51:15 TSH + free T4, serum 2023 024 [email or web address] Not available 4 08:51:15 iron + total iron-bin ding capacity (TIBC), serum 2023 024 [email or web address] Not available 4 08:51:15 vitamin B12 + folate, serum or blood 2023 024 [email or web address] Not available 4 08:51:15 vitamin D, 25-hydro xy, total, serum 2023 024 [email or web address] Not available 4 08:51:15 unlisted lab - urine drug abuse panel 10 2023 024 [email or web address] [facility] (Lab), [address] [place], [address], 4 16:08:10 Referral pulmonol ogist referral - Needs sleep study, does not have cpap. Please call patient to schedule an appointm ent. Thank you. 2024 025 Tenisha Ragland [employer], [address] [facility], [place], [address], 5 11:37:29 cardiolo gist referral 2023 024 [email or web address] [place], [address] [address] , [address], [address], 5 07:55:[address] referral - Patient also has hepatome coleen and hepatic steatosi s, cholelit hiasis, type 2 diabetes . 2023 024 JEREMY Ruiz MD, [address], [address], [place], [address], 4 10:14:05 pain manageme nt referral - Please call patient to schedule an appointm ent. Thank you. 2023 024 [email or web address] [facility], [address], [address], [place], [address], 4 09:16:24 endocrin ology referral - Please call patient to schedule an appointm ent. Thank you. 2023 024 [email or web address] Devorah Lantigua MD, [address], [place], [address], 09:07:33 Procedures None recorded . Surgeries None recorded . Imaging polysomn ogram, diagnost ic, 6 yrs or older - Please call patient to schedule . 2024 025 [email or web address] [facility] ([facility] [address] [place], [address], 5 15:49:53 XR, chest, 2 view 2023 024 [email or web address] 2 [facility], [address] [place], [address], 5 09:52:16 MAMMO, screenin g, bilatera l 2023 024 [email or web address] [facility], [address] [place], [address], 4 18:22:56 Medication Orders allopuri nol 100 mg tablet 2024 025 [facility]76272, [address], [place], [place], [id number], 5 15:11:57 tramadol 50 mg tablet 2024 025 [facility] #49344, [address], [place], [place], [id number], 5 15:12:09 gabapent in 300 mg capsule 2024 025 [facility] #93087, [address], [place], [place], [id number], 5 15:12:00 ergocalc iferol (vitamin D2) 1,250 mcg (50,000 unit) capsule 2024 025 [facility] #33401, [address], [id number], 5 15:12:03 furosemi de 40 mg tablet 2024 025 [facility] #80389, [address], [place], [place], [id number], 5 15:12:02 losartan 50 mg tablet 2024 025 [facility] #48011, [address], [place], [place], [id number], 5 15:12:01 Farxiga 5 mg tablet [address] [facility] #93644, [address], [id number], 5 11:03:34 cycloben zaprine 10 mg tablet 2024 025 [facility] #71743, [address], [id number], 5 15:12:00 levothyr oxine 200 mcg tablet [address] [facility] #62020, [address], [place], [place], [id number], 5 11:03:45 cyanocob alamin (vit B-12) 1,000 mcg tablet 2024 025 [facility] #54373, [address], [place], [place], [id number], 5 15:11:59 Medrol (Moses) 4 mg tablets in a dose pack [address] [facility] #86284, [address] [facility], [place], [place], [id number], 5 14:47:08 azithrom ycin 250 mg tablet [address] [facility] #04771, [address] [facility], [place], [place], [id number], 5 13:54:38 diclofen ac sodium 75 mg tablet,d elayed release [address] [facility] #72957, [address] , [place], [place], [id number], 5 15:06:03 tramadol 50 mg tablet 2023 024 [facility] #91634, [address] , [place], [place], [id number], 4 10:58:31 tramadol 50 mg tablet 2023 024 [facility] #38697, [address], [place], [place], [id number], 4 11:33:54 gabapent in 300 mg capsule 2023 024 [email or web address] [facility] #43214, [address], [place], [place], [id number], 4 10:58:31 sertrali ne 25 mg tablet 2023 024 [facility] #55666, [address], [place], [place], [id number], 4 09:39:51 levothyr oxine 200 mcg tablet 2023 024 [facility] #54021, [address], [place], [place], [id number], 5 11:03:45 Zithroma x Z-Moses 250 mg tablet 2023 024 [email or web address] [facility]70, [address], [id number], 5 13:54:38 meclizin e 25 mg tablet 2023 024 [facility] #31670, [address], [place], [id number], 4 16:07:11 levothyr oxine 50 mcg capsule 2023 024 [facility] #32124, [address], [id number], 4 10:22:03 Patient TargetsNo targets recorded. Patient Instructions Encounter Date Encounter Id Patient Instructions Last Modified By Organization Details Last Modified Time 01/14/2024 [id number] dementia rating scale-2* JEREMY Not available 01/14/2024 14:02:32 alcohol misuse* JEREMY Not available 01/14/2024 14:02:28 depression screening* JEREMY Not available 01/14/2024 14:02:26 Timed Up and Go test (TUG)* JEREMY Not available 01/14/2024 14:02:23 multi-dimensiona l health assessment questionnaire* Not available 01/14/2024 14:03:11 Follow up in 3 months Obtain labs Tests: Complete mammogram Referral: Dr. RuizSdg-KR-kcnces Dr. Enriquez-Cardiology Recommend: Tetanus vaccine Shingles vaccine Personalized Health Plan and Screening Recommendations Advance Directives - Do you have one? No Advance Directives - Do we have your advance directive on file in your health record? Primary Prevention/Interven tion (prevents or decreases the chance of common diseases from occurring) Smoking Risk: Non Smoker Alcohol Misuse Screening: Negative Weight: Overweight try to lose 10% of your body weight Physical activity: Need more exercise/physical activity minimum of 20-30 minutes activity that causes mild breathlessness/day Nutrition: Average Refer to attached handout Heart-Healthy Diet: After Your Visit Fall Risk (screened today): Intermediate Refer to attached handout Preventing Falls: After your Visit Vaccines Pneumococcal: Recommended today Influenza: Your next one in the fall of this year Chronic Disease Risks Stroke: Intermediate Risk Follow Heart Healthy/ DASH Diet Heart Attack: Intermediate Risk Follow Heart Healthy/ DASH Diet Clogging of the Arteries: Intermediate Risk Follow Heart Healthy/ DASH Diet Diabetes: High Risk Active diagnosis, Continue current treatment plan Secondary Prevention/Interven tion (detects treatable diseases before they may cause symptoms, disability, or ) Breast Cancer Screening with mammogram: Ordered Cervical/Uterine/Ov nancy Cancer Screening: 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 Advance Directives - Do we have your advance directive on file in your health record? Primary Prevention/Interven tion (prevents or decreases the chance of common diseases from occurring) Smoking Risk: Alcohol Misuse Screening: Weight: Physical activity: Nutrition: Fall Risk (screened today): Vaccines Pneumococcal: Influenza: Chronic Disease Risks Stroke: Active diagnosis, Continue current treatment plan Heart Attack: Active diagnosis, Continue current treatment plan Clogging of the Arteries: Active diagnosis, Continue current treatment plan Diabetes: Active diagnosis, Continue current treatment plan Secondary Prevention/Interven tion (detects treatable diseases before they may cause symptoms, disability, or ) Breast Cancer Screening with mammogram: Cervical/Uterine/Ov nancy Cancer Screening: Osteoporosis Screening: Date Screening Last Performed: Colon Cancer Screening: Date Screening Last Performed: Eye Disease Screening: Your next exam in: Dementia Risk: Depression Screening: Active diagnosis, Continue current treatment plan [email or web address] Not available 01/14/2024 12:33:39 04/12/2024 [id number] diabetic foot exam* [email or web address] Not carriai masood 10/19/2024 08:17:27 Follow up in 4 months Prescriptions sent to pharmacy Obtain labs Tests: Complete cologuard Referral: Dr. Pak-Diabetic foot exam. Recommend: Shingles vaccine Not available 04/12/2024 10:05:10 08/11/2024 [id number] Follow up in 3 months Prescriptions sent to pharmacy Tests: Referral: Recommend: Shingles vaccine Not available 08/11/2024 15:08:35 Reason for Referral Endocrinology Referral for H ypothyroidism hypothyroid Please call patient to schedule an appointment. Thank you. Referring Physician: Sesar Jurado [facility], Encounter Date: 10/31/2023 Pain Management Referral for Pain of bilateral knee joints pain bilateral knees Please call patient to schedule an appointment. Thank you. 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 Referring Physician: Kalie Kaufman, Internal Medicine, Encounter Date: 01/14/2024 Bond Trader Referral for Co ngestive heart failure Referring Physician: Kalie Kaufman, Internal Medicine, Encounter Date: 01/14/2024 Airport Control Operator Referral for O bstructive sleep apnea syndrome Needs sleep study, does not have cpap. Please call patient to schedule an appointment. Thank you. Referring Physician: Kalie Kaufman, Internal Medicine, Encounter Date: 08/11/2024 Results Created Date Observation Date Name Description Value Unit Range Abnormal Flag Note LastModifiedBy Organization Detail LastModifiedTime 01/12/20 24 01/12/2024 CT, abdom en + pelvi s, w/o contr ast No observ ation record ed. [email or web address] [facility] [address] [place], [address], 01/13/2024 15:14:23 01/22/20 25 01/19/2025 6 minut e walk test* No observ ation record ed. BARCODE Not Available 2024 12:02:31 01/22/20 25 01/12/2025 CT, angio gram, chest , w/ contr ast No observ ation record ed. BARCODE Not Available 2024 12:02:32 Result Notes None recorded. Problems Name Problem SNOMED Code Status Onset Date Resolution Date Notes Provider Name and Address Organization Details Recorded Time Chronic back pain 924098704 Active Kalie Kaufman APRN [address] [employer], [address], [place], [address] , [employer] 4 15:02:09 Laborator y procedure performed 016286459 Active Not Available [facility] 4 11:51:51 Serum vitamin B12 below reference range 650055595 Active Not Available [facility] 4 11:51:51 Abnormal urinalysi s 389175160 Active Not Available [facility] 4 11:51:51 Insomnia 334022075 Active Not Available [facility] 4 11:51:51 Steatotic liver disease 774469424 Active fatty liver Kalie Kaufman APRN [address], [address], [place], [address] , [employer] 4 15:03:08 Periphera l venous insuffici ency 71204797 Active Kalie Kaufman APRN [address], [address], [place], [address] , [employer] 4 15:03:05 Gastroeso phageal reflux disease 322245236 Active Kalie Kaufman APRN [address], [address], [place], [address] , [employer] [facility] [employer] [facility] 4 15:02:21 Incisiona l hernia 015763052 Active Kalie Kaufman APRN [address], [address] [facility], [place], [address] , [email or web address] [facility] 4 15:02:30 Renal impairmen t 117408742 Active Kalie Kaufman APRN [address], [address], [place], [address] , [employer] [facility] 4 15:03:28 Edema 284046049 Active Not Available [facility] 4 11:51:51 Anemia 113343258 Active Kalie Kaufman APRN [address], [address] [address], [place], [address] , [employer] [facility] 4 15:02:06 Low back pain 932667633 Active Not Available [facility] 4 11:51:51 Mass of lower limb 753692785 Active Not Available [facility] 4 11:51:51 Knee pain Active Not Available [facility] 4 11:51:51 Type 2 diabetes mellitus without complicat ion 109491404 Active Kalie Kaufman APRN [address], [address] [place] [address], [place], [address] , [employer] [facility] [employer] [facility] 4 15:03:14 Menometro rrhagia 921518343 Active Not Available [facility] 4 11:51:51 Restless legs syndrome 13759599 Active Not Available [facility] 4 11:51:51 Iron deficienc y 43750560 Active Not Available [facility] 4 11:51:51 Pericardi al effusion 382626344 Active Not Available [facility] 4 11:51:51 Osteoarth ritis 697039034 Active Kalie Kaufman APRN [address], [address], [place], [address] , [employer] 4 15:02:49 Dizziness 060765374 Active Not Available [facility] 4 11:51:51 Hypothyro idism 32116340 Active Kalie Kaufman APRN [address], [address], [place], [address] , [employer] 4 15:02:28 Obese 080873905 Active Not Available [facility] 4 11:51:51 Obesity 501317146 Completed 01/13/2024 Kalie Kaufman APRN [address], [address], [place], [address] , [employer] 4 15:15:48 Temporoma ndibular joint disorder 70438195 Active Kalie Kaufman APRN [address], [address], [place], [address] , [employer] 4 15:03:21 Congestiv e heart failure 81704380 Active Kalie Kaufman APRN [address], [address], [place], [address] , [employer] 4 15:02:12 Eczema 76080454 Active Kalie Kaufman APRN [address], [address], [place], [address] , [employer] 4 15:02:17 Creatine kinase level above reference range 337693290 Active Not Available [facility] 4 11:51:51 Swelling of lower leg 006500885 Active Not Available [facility] 4 11:51:51 Upper respirato ry infection 92340078 Active Not Available [facility] 4 11:51:51 Hyperlipi demia 36036895 Active Kalie Kaufman APRN [address], [address], [place], [address] , [employer] 4 15:02:19 Celluliti s of umbilicus 89363721 Active Not Available [facility] 4 11:51:51 Allergic rhinitis 25974545 Active Not Available [facility] 4 11:51:51 Pulmonary hypertens ion 11596147 Active Kalie Kaufman APRN [address], [address], [place], [address] , [employer] [facility] [employer] [facility] 4 15:02:59 Spinal stenosis 02715921 Active Kalie Kaufman APRN [address], [address], [place], [address] , [employer] [facility] [employer] [facility] 4 15:03:16 Obstructi ve sleep apnea syndrome 41665979 Active Kalie Kaufman APRN [address], [address], [place], [address] , [employer] [facility] [employer] [facility] 4 15:02:50 Chronic pain 17110051 Active Not Available [facility] 4 11:51:52 Fatigue 79430757 Active Not Available [facility] 4 11:51:52 Iron deficienc y anemia 59367344 Active Kalie Kaufman APRN [address], [address], [place], [address] , [employer] [facility] [employer] [facility] 4 15:02:38 Gout 97980985 Active Kalie Kaufman APRN [address], [address], [place], [address] , [employer] [facility] [employer] [facility] 4 15:02:24 Kidney disease 39917006 Active Not Available [facility] 4 11:51:52 Lipoma 70077681 Active Not Available [facility] 4 11:51:52 Abdominal colic 3303693 Zack Kaufman APRN [address], [address], [place], [address] , [facility] [employer] [facility] [employer] [facility] 4 15:05:51 Removal of suture Zack Kaufman APRN [address], [address], [place], [address] , [employer] 4 10:16:58 Arthritis of left knee joint 63380333539 81606 Active 2020 Not Available [employer] 4 11:51:51 Arthritis of right knee joint 03842930208 55178 Active 2020 Not Available [employer] 4 11:51:51 Morbid obesity 660325632 Active 2020 Kalie Kaufman APRN [address], [facility] [address], [place], [address] , [employer] 4 15:02:46 Osteopeni a 692510971 Active 2020 Kalie Kaufman APRN [address], [facility] [address], [place], [address] , [employer] 4 15:02:57 Pain in right foot 29353386364 9107 Active 2022 Not Available [employer] 4 11:51:51 Pain of bilateral knee joints 70172830559 4104 Active 2022 Not Available [employer] 4 11:51:51 Pain of multiple joints 00870307 Active 2022 Not Available [facility] 4 11:51:51 Pain of left knee joint 34462823919 4107 Active 2022 Not Available [facility] 4 11:51:51 Mixed anxiety and depressiv e disorder 753231399 Active 2022 Kalie Kaufman APRN [address], [facility] [address], [place], [address] , [employer] 4 15:02:41 Acute sinusitis 11561146 Active 2023 WESLEY Zhong [address], [facility] [address], [place], [address] , [employer] 4 15:41:51 Intra-abd ominal hernia 94839647 Active 2023 Kalie Kaufman APRN [address], [address], [place], [address] , [employer] 4 10:38:18 Chronic abdominal pain 004840845 Active 2023 Kalie Kaufman APRN [address], [address], [place], [address] , [employer] 4 10:57:25 Essential hypertens ion 46157889 Active 2023 Kalie Kaufman APRN [address], [address], [place], [address] , [employer] 4 08:53:38 Vitamin D deficienc y 61947394 Active 2023 Kalie Kaufman APRN [address], [address], [place], [address] , [employer] 4 09:03:13 Cobalamin deficienc y 074724326 Active 2023 Kalie Kaufman APRN [address], [address] [address], [place], [address] , [employer] 4 09:03:24 Lower respirato ry tract infection 19140784 Active 2023 Kalie Kaufman APRN [address], [address] [address], [place], [address] , [employer] 4 10:00:32 Sleep apnea 84812180 Active 2024 Tenisha Ragland NP [address], [address] [address], [place], [address] , [employer] 5 11:13:21 Notes:Some problems listed i n Documents: #[id number], #[id number], #[id number], #[id number] could not be added to this patient's chart. Please review these documents and add these problems to the patient's chart manually as needed. Problem Notes None recorded. Procedures Surgical History Date Name Laterality Status Provider Name and Address Organization Details Recorded Time 01/14/20 24 Medicare Wellness CPT Code, subsequent completed Jamie Laguna LPN [place] [facility] 01/14/2024 11:19:36 11/07/19 21 hernia repair completed Not Available [facility] 2022 08:44:51 03/17/20 20 Hysterectomy completed Not Available [facility] 023 08:44:51 12/12/19 19 Dilation and curettage completed Not Available [facility] 07/24/2022 08:44:51 12/12/19 19 Dilation and curettage completed Not Available [facility] 07/24/2022 08:44:51 04/30/20 18 hysteroscopy completed Not Available [facility] 023 08:44:51 12/12/19 18 Hysteroscopy biopsy completed Not Available [facility] 07/24/2022 08:44:51 02/05/20 16 Hernia repair w/mesh completed Not Available [facility] 07/24/2022 08:44:51 05/26/19 16 Rpr ventral augustine init reduc completed Not Available [facility] 07/24/2022 08:44:51 07/07/19 15 Hysteroscopy ablation completed Not Available [facility] 07/24/2022 08:44:51 07/07/19 15 Ablation completed Not Available [facility] 08:44:51 01/27/20 14 Dbrdmt musc&/fsca completed Not Available [facility] 07/24/2022 08:44:51 01/27/20 14 Removal of foreign body completed Not Available [facility] 07/24/2022 08:44:51 05/26/19 14 exploration of lesion of abdominal wall completed Not Available [facility] 07/24/2022 08:44:51 05/26/19 13 laparoscopic sleeve gastrectomy completed Not Available [facility] 07/24/2022 08:44:51 05/26/19 10 other completed Not Available [facility] 08:44:51 05/26/18 94 section completed Not Available [facility] 05/2022 08:44:51 05/26/18 93 section completed Not Available [facility] 05/2022 08:44:51 Masectomy completed Not Available [facility] [address] 07/24/2022 08:44:51 hysteroscopy completed Not Available [facility] 07/24/2022 08:44:51 Imaging Results None recorded. Procedure Notes None recorded. Medical Equipment None Reported. Allergies Allergen ID Allergen Name Allergen Category Reaction Reaction Severity Criticality Documentation Date Start Date Code Code System Note Provider Name and Address Organization Details Recorded Time 35116 No known allergy (situatio n) Not available Not available Not available Not available 01/13/2024 [id number] SNOMED Kalie Shae, MICA SPREADER [address] [facility], [address], [place], [address], [facility] [employer] 4 15:05:22 No known drug allergies Medications Name Sig Start Date Stop Date Status Note LastModified by Organization Details LastModified Time insulin syringe/u -100/1ml/ 31g x 5/1 6 31g x 5/16 1 ml misc 02/06 completed Not Available Not Available Not Available multivita min tablet TK 1 T PO QD active Not Available Not Available No t Available losartan 50 mg tablet TAKE 1 TABLET BY MOUTH EVERY DAY DIRECTED active Not Available Not Available No t Available cyclobenz aprine 10 mg tablet TAKE 1 TABLET BY MOUTH THREE TIMES DAILY NEEDED active Not Available Not Available No t Available amoxicill in 500 mg capsule active Not Available Not Available Not Available furosemid e 40 mg tablet TAKE 1 TABLET BY MOUTH EVERY DAY DIRECTED active Not Available Not Available No t Available methocarb hernan 500 mg tablet 01/13 completed Not Available Not Available Not Available desonide 0.05 % topical cream 01/31 completed Not Available Not Available Not Available metformin 500 mg tablet 01/31 completed Not Available Not Available Not Available hydrocodo ne 7.5 mg-ibupro fen 200 mg tablet active Not Available Not Available No t Available levothyro xine 175 mcg tablet 11/18 completed Not Available Not Available Not Available promethaz ine-DM 6.25 mg-15 mg/5 mL oral syrup 01/31 completed Not Available Not Available Not Available doxycycli ne hyclate 100 mg capsule TAKE 1 CAPSULE BY MOUTH TWICE DAILY FOR 7 DAYS 11/20 completed Not Available Not Available Not Available ipratropi um 0.5 mg-albute rol 3 mg (2.5 mg base)/3 mL nebulizat ion soln Inhale 3 mL every day by nebuliza tion route for 1 day. 01/31 completed Not Available Not Available Not Available clindamyc in HCl 300 mg capsule TAKE 1 CAPSULE BY MOUTH EVERY 8 HOURS FOR 7 DAYS 07/04 completed Not Available Not Available Not Available atorvasta tin 10 mg tablet 03/28 completed Pt. had muscle aches which resolved when she stopped Lipitor. Not Available Not Available Not Available azithromy jessica 250 mg tablet TAKE 2 TABLETS (500 MG) BY ORAL ROUTE ONCE DAILY FOR 1 DAY THEN 1 TABLET (250 MG) BY ORAL ROUTE ONCE DAILY FOR 4 DAYS 06/23 completed Not Available Not Available Not Available ibuprofen 800 mg tablet TAKE 1 TABLET BY MOUTH EVERY 6 TO 8 HOURS NEEDED active Not Available Not Available No t Available tizanidin e 4 mg tablet 01/13 completed Not Available Not Available Not Available fluconazo le 150 mg tablet TAKE 1 TABLET PO ONCE WEEKLY 01/31 completed Not Available Not Available Not Available benzonata te 200 mg capsule Take 1 capsule 3 times a day by oral route for 7 days. active Not Available Not Available No t Available levothyro xine 300 mcg tablet po Q AM active Not Available Not Available Not Available valacyclo vir 1 gram tablet Take 1 tablet every 8 hours by oral route for 7 days. 01/31 completed Not Available Not Available Not Available hydrocodo ne 5 mg-acetam inophen 325 mg tablet TK 1 TO 2 TS PO Q 4 TO 6 H PRN P RATED 4 TO 6 H 01/31 completed Not Available Not Available Not Available Nystop 100,000 unit/gram topical powder APPLY TO THE AFFECTED AREA TWICE DAILY NEEDED FOR RASH 02/06 completed Not Available Not Available Not Available ondansetr on HCl 8 mg tablet Take 1 tablet every 8 hours by oral route as needed. active Not Available Not Available No t Available minocycli ne 100 mg capsule 02/06 completed Not Available Not Available Not Available meloxicam 15 mg tablet 01/31 completed Not Available Not Available Not Available naltrexon e 50 mg tablet 02/06 completed Not Available Not Available Not Available phenazopy ridine 200 mg tablet active Not Available Not Available Not Available ondansetr on HCl 4 mg tablet active Not Available Not Available No t Available prednison e 20 mg tablet 3 po qday x 3 days then 2 po qday x 3 days then 1 po qday x 3 days then 1/2 tab po qday x 3 days then stop 10/07 completed Not Available Not Available Not Available valsartan 160 mg-hydroc hlorothia zide 12.5 mg tablet TAKE 1 TABLET BY MOUTH EVERY DAY 02/06 completed Not Available Not Available Not Available cyanocoba daniel (vit B-12) 1,000 mcg tablet 1 tab by mouth every day 2024 active Not Available Not Available Not Avai lable meclizine 12.5 mg tablet TAKE 1 TABLET BY MOUTH TWICE DAILY 02/06 completed Not Available Not Available Not Available acetamino phen 300 mg-codein e 30 mg tablet TAKE 1 TABLET BY MOUTH EVERY 6 HOURS NEEDED 04/15 completed Not Available Not Available Not Available ciproflox acin 250 mg tablet TAKE 1 TABLET BY MOUTH EVERY 12 HOURS FOR 10 DAYS 01/13 completed Not Available Not Available Not Available amlodipin e 5 mg tablet Take 1 tablet every day by oral route for 90 days. active Not Available Not Available No t Available allopurin ol 100 mg tablet TAKE 1 TABLET BY MOUTH EVERY DAY DIRECTED active Not Available Not Available No t Available ciproflox acin 500 mg tablet TAKE 1 TABLET BY MOUTH EVERY 12 HOURS FOR 5 DAYS 06/04 completed Not Available Not Available Not Available sulfameth oxazole 800 mg-trimet hoprim 160 mg tablet TK 1 T PO Q 12 H FOR 10 DAYS 08/21 completed Not Available Not Available Not Available tramadol 50 mg tablet TAKE 1 TABLET BY MOUTH EVERY 6 HOURS NEEDED active Not Available Not Available No t Available acetamino phen 500 mg tablet TAKE 1 TABLET BY MOUTH EVERY 6 TO 8 HOURS FOR PAIN 01/27 completed Not Available Not Available Not Available triamcino lone acetonide 0.1 % topical cream APPLY ONCE TO TWICE DAILY FOR UP TO 2 CONSECUT FAITH WEEKS. TAKE A SMALL BREAK AND THEN REPEAT NEEDED FOR FLARES. AVOID FACE/PIT S/GROIN active Not Available Not Available No t Available ketorolac 30 mg/mL (1 mL) injection solution 30 mg by injectio n route. 02/01 completed Not Available Not Available Not Available amoxicill in 500 mg tablet TAKE 1 TABLET BY MOUTH THREE TIMES DAILY FOR 7 DAYS UNTIL FINISHED 01/27 completed Not Available Not Available Not Available simvastat in 40 mg tablet po Q HS active Not Available Not Available Not Available acyclovir 800 mg tablet 02/06 completed Not Available Not Available Not Available glimepiri de 2 mg tablet Take 1 tablet every day by oral route. active Not Available Not Available No t Available lidocaine -prilocai ne 2.5 %-2.5 % topical cream Apply 2-3 grams to the affected area 3-4 times daily. 01/31 completed Not Available Not Available Not Available levothyro xine 25 mcg tablet Take 1 tablet every day by oral route. 01/31 completed Not Available Not Available Not Available ketorolac 10 mg tablet Take 1 tablet every 6 hours by oral route as needed for 5 days. 02/06 completed Not Available Not Available Not Available levothyro xine 75 mcg tablet 01/13 completed Not Available Not Available Not Available meloxicam 7.5 mg tablet Take 1 tablet twice a day by oral route as needed. active Not Available Not Available No t Available levothyro xine 100 mcg tablet Take 1 tablet every day by oral route before meals for 30 days. 01/31 completed Not Available Not Available Not Available losartan 100 mg-hydroc hlorothia zide 25 mg tablet 01/31 completed Not Available Not Available Not Available oxycodone -acetamin ophen 5 mg-325 mg tablet TAKE 1 TABLET BY MOUTH EVERY 4 TO 6 HOURS NEEDED 10/07 completed Not Available Not Available Not Available lidocaine 1 %-epineph rine 1:100,000 injection solution Take 2 mL by injectio n route for 1 day. 02/06 completed Not Available Not Available Not Available terbinafi ne HCl 250 mg tablet TAKE 1 TABLET BY MOUTH EVERY DAY 01/13 completed Not Available Not Available Not Available propranol ol 10 mg tablet TAKE 2 TABLETS BY MOUTH THREE TIMES DAILY NEEDED 01/13 completed Not Available Not Available Not Available amoxicill in 875 mg tablet TK 1 T PO Q 12 H 01/31 completed Not Available Not Available Not Available potassium chloride ER 20 mEq tablet,ex tended release(p art/cryst ) active Not Available Not Available Not Available famotidin e 20 mg tablet Take 1 tablet twice a day by oral route. 2012 active Not Available Not Available Not Avai lable lorazepam 0.5 mg tablet BRING TO OFFICE THE DAY OF SURGERY 02/06 completed Not Available Not Available Not Available methocarb hernan 750 mg tablet Take 1-2 tablets by mouth 2-3 times daily 01/31 completed Not Available Not Available Not Available triamcino lone acetonide 0.025 % topical cream APPLY A THIN LAYER TO THE AFFECTED AREA(S) BY TOPICAL ROUTE 2 TIMES PER DAY active Not Available Not Available No t Available DOK 100 mg capsule TK ONE C PO BID 01/13 completed Not Available Not Available Not Available furosemid e 80 mg tablet TK 1 T PO DAILY active Not Available Not Available No t Available Xylocaine 10 mg/mL (1 %) injection solution Take 20 mg every day by injectio n route for 1 day. 02/06 completed Not Available Not Available Not Available OneTobuySAFE Ultra Test strips TEST FASTING BLOOD SUGAR ON DAILY BASIS FOR 90 DAYS 02/06 completed Not Available Not Available Not Available Kenalog 10 mg/mL suspensio n for injection In office injectio n administ ered by the provider 02/06 completed [facility]: [phone] Not Available Not Available Not Available amitripty line 10 mg tablet Take 1 tablet every day by oral route in the evening for 30 days. active Not Available Not Available No t Available meclizine 25 mg tablet TAKE 1 TABLET BY MOUTH EVERY 8 HOURS NEEDED active Not Available Not Available No t Available diazepam 2 mg tablet TAKE 1 TABLET BY MOUTH EVERY 8 HOURS NEEDED. 02/06 completed Not Available Not Available Not Available benzonata te 100 mg capsule TK 1 C PO Q 8 H NEEDED FOR COUGH 11/18 completed Not Available Not Available Not Available triamcino lone acetonide 40 mg/mL suspensio n for injection Take 40 mg by injectio n route for 1 day. 02/22 completed Not Available Not Available Not Available levothyro xine 50 mcg tablet Take 1 tablet every day by oral route in the morning for 90 days. 01/13 completed Not Available Not Available Not Available cephalexi n 500 mg capsule TAKE 1 CAPSULE BY MOUTH EVERY 6 HOURS UNTIL GONE 01/27 completed Not Available Not Available Not Available cyanocoba daniel (vit B-12) 1,000 mcg/mL injection solution ADMINIST ER 1 ML UNDER THE SKIN EVERY WEEK IN THE MORNING 02/06 completed Not Available Not Available Not Available oseltamiv ir 75 mg capsule TK 1 C PO 2 TIMES A DAY FOR 5 DAYS 11/18 completed Not Available Not Available Not Available ferrous sulfate 325 mg (65 mg iron) tablet 01/08 completed Not Available Not Available Not Available levothyro xine 125 mcg tablet 01/08 completed Not Available Not Available Not Available ropinirol e 0.5 mg tablet Take 1 tablet every day by oral route. 2012 active Not Available Not Available Not Avai lable nystatin 100,000 unit/gram topical cream BENJAMIN EXT AA BID prn rash 02/06 completed Not Available Not Available Not Available buspirone 10 mg tablet TK 1 T PO TID 02/06 completed Not Available Not Available Not Available glimepiri de 4 mg tablet one tab po Q daily active Not Available Not Available No t Available misoprost ol 200 mcg tablet TK 2 TS PO HS FOR 1 DAY 03/03 completed Not Available Not Available Not Available prednison e 50 mg tablet 01/31 completed Not Available Not Available Not Available ursodiol 300 mg capsule active Not Available Not Available Not Available levothyro xine 150 mcg tablet Take 1 tablet by oral route. 01/13 completed Not Available Not Available Not Available metronida zole 0.75 % topical cream 02/06 completed Not Available Not Available Not Available nystatin- triamcino lone 100,000 unit/g-0. 1 % topical cream active Not Available Not Available Not Available fluoxetin e 10 mg capsule po Q AM active Not Available Not Available Not Available gabapenti n 300 mg capsule TAKE 1 CAPSULE BY MOUTH EVERY MORNING, EVERY DAY AT NOON AND TAKE 2 CAPSULES BY MOUTH EVERY NIGHT AT BEDTIME active Not Available Not Available No t Available sertralin e 25 mg tablet TAKE 1 TABLET BY MOUTH EVERY DAY 04/12 completed Not Available Not Available Not Available aspirin 81 mg chewable tablet Chew 1 tablet every day by oral route. 2012 active Not Available Not Available Not Avai lable diclofena c sodium 75 mg tablet,de layed release Take 1 tablet twice a day by oral route. 08/11 completed Not Available Not Available Not Available bumetanid e 1 mg tablet active Not Available Not Available Not Available insulin syringe U-100 with needle 1 mL 31 gauge x 5/16 INJECT B12 ONCE WEEKLY FOR 90 DAYS 02/06 completed Not Available Not Available Not Available hydroxyzi ne HCl 25 mg tablet TAKE 1 TABLET BY MOUTH THREE TIMES DAILY NEEDED 02/06 completed Not Available Not Available Not Available hydrocodo ne 5 mg-acetam inophen 500 mg tablet TAKE ONE TO TWO TS PO EVERY FOUR TO SIX HOURS PRN FOR PAIN active Not Available Not Available No t Available levothyro xine 200 mcg tablet TAKE 1 TABLET BY MOUTH EVERY DAY DIRECTED 01/27 completed Not Available Not Available Not Available mupirocin 2 % topical ointment APPLY SMALL AMOUNT EXTERNAL LY TO THE AFFECTED AREA THREE TIMES DAILY 02/06 completed Not Available Not Available Not Available diclofena c sodium 50 mg tablet,de layed release Take 1 tablet twice a day by oral route for 30 days. 03/03 completed Not Available Not Available Not Available furosemid e 20 mg tablet TAKE 1 TABLET BY MOUTH TWICE DAILY NEEDED 07/04 completed Not Available Not Available Not Available gabapenti n 100 mg capsule Take 1 capsule TID by oral route active Not Available Not Available No t Available ergocalci ferol (vitamin D2) 1,250 mcg (50,000 unit) capsule TAKE 1 CAPSULE BY MOUTH 2 TIMES A WEEK active Not Available Not Available No t Available lorazepam 1 mg tablet Take 1 tablet 3 times a day by oral route. active Not Available Not Available No t Available prednison e 5 mg tablets in a dose pack active Not Available Not Available Not Available ibuprofen 600 mg tablet TK 1 T PO Q 8 H 02/06 completed Not Available Not Available Not Available polyethyl alia glycol 3350 17 gram/dose oral powder TAKE 17 GRAMS BY MOUTH ONCE DAILY NEEDED FOR CONSTIPA TION 01/31 completed Not Available Not Available Not Available levofloxa jessica 500 mg tablet 11/18 completed Not Available Not Available Not Available levofloxa jessica 750 mg tablet active Not Available Not Available No t Available methylpre dnisolone 4 mg tablets in a dose pack Follow package directio n 08/11 completed Not Available Not Available Not Available albuterol sulfate HFA 90 mcg/actua tion aerosol inhaler INHALE 2 PUFFS BY MOUTH EVERY 4 TO 6 HOURS NEEDED 02/06 completed Not Available Not Available Not Available losartan 50 mg-hydroc hlorothia zide 12.5 mg tablet 01/31 completed Not Available Not Available Not Available ondansetr on 4 mg disintegr ating tablet 01/31 completed Not Available Not Available Not Available topiramat e 100 mg tablet TAKE 1 TABLET BY MOUTH DAILY 02/06 completed Not Available Not Available Not Available fluoxetin e 20 mg capsule TAKE 1 CAPSULE BY MOUTH EVERY DAY 02/06 completed Not Available Not Available Not Available fluticaso ne propionat e 50 mcg/actua tion nasal spray,sy pension SHAKE LQ AND U 1 SPR IEN BID 01/31 completed Not Available Not Available Not Available clotrimaz ole 1 % topical cream APPLY THIN LAYER TO THE AFFECTED AREA TWICE DAILY UNTIL CLEAR OF SYMPTOMS active Not Available Not Available No t Available sertralin e 50 mg tablet TAKE 1 TABLET BY MOUTH EVERY DAY 01/13 completed Not Available Not Available Not Available colestipo l 1 gram tablet Take 2 tablets twice a day by oral route for 90 days. 01/17 completed changed to fish oil suppleme nt Not Available Not Available Not Available metronida zole 0.75 % topical gel APPLY A THIN LAYER TO THE AFFECTED AREA(S) BY TOPICAL ROUTE 2 TIMES PER DAY IN THE MORNING AND EVENING 02/06 completed Not Available Not Available Not Available doxycycli ne hyclate 100 mg tablet Take 1 tablet twice a day by oral route for 14 days. active Not Available Not Available No t Available calcitrio l 0.25 mcg capsule 2024 active Not Available Not Available Not Avai lable loratadin e 10 mg tablet TK 1 T PO D 01/31 completed Not Available Not Available Not Available naproxen 500 mg tablet TAKE 1 TABLET BY MOUTH TWICE DAILY WITH FOOD active Not Available Not Available No t Available diazepam 5 mg tablet TAKE 1 TABLET BY MOUTH EVERY 6-8 HOURS NEEDED FOR PAIN 02/06 completed Not Available Not Available Not Available difloraso ne 0.05 % topical ointment Apply 2-3 gms to affected area(s) 3-4 times daily (1gm=1 dime size) 01/31 completed Not Available Not Available Not Available amoxicill in 875 mg-potass ium clavulana te 125 mg tablet TAKE 1 TABLET BY MOUTH TWICE DAILY 01/13 completed Not Available Not Available Not Available bacitraci n-polymyx in B 500 unit-10,0 00 unit/gram eye ointment APPLY TO AFFECTED AREA 3 TIMES DAILY 04/12 completed Not Available Not Available Not Available oxycodone 5 mg tablet TK 1 T PO Q 4 H PRN P 10/07 completed Not Available Not Available Not Available neomycin- polymyxin -hydrocor t 3.5 mg-10,000 unit/mL-1 % ear drops,sy p SHAKE LIQUID AND INSTILL 2 DROPS IN BOTH EARS FOUR TIMES DAILY 01/13 completed Not Available Not Available Not Available cyclobenz aprine 5 mg tablet TK 1 T PO TID PRF MUSCLE SPASM 12/25 completed Not Available Not Available Not Available levothyro xine 250mcg daily active Not Available Not Available No t Available lidocaine (PF) 10 mg/mL (1 %) injection solution In office injectio n administ ered by the provider 02/06 completed [facility] [place]: [phone] Not Available Not Available Not Available Januvia 50 mg tablet Take 1 tablet every day by oral route in the morning for 90 days. active Not Available Not Available No t Available peg 3350-elec trolytes 236 gram-22.7 4 gram-6.74 gram-5.86 gram solution MIX AND DRINK 1/2 JUG STARTING AT 7AM DAY BEFORE SURGERY 02/06 completed Not Available Not Available Not Available cholecalc iferol (vitamin D3) 1,250 mcg (50,000 unit) capsule TK 1 C PO WEEKLY 03/03 completed Not Available Not Available Not Available ferrous sulfate 324 mg (65 mg iron) tablet,de layed release 1 tab by mouth two to three times a day; on an empty stomach with a glass of orange juice 01/08 completed Not Available Not Available Not Available levothyro xine 75 mcg capsule Take 1 capsule by oral route. 04/12 completed Not Available Not Available Not Available levothyro xine 50 mcg capsule Take by oral route for 90 days. 01/13 completed Not Available Not Available Not Available Fish Oil 120 mg-180 mg-60 mg-1,200 mg capsule,d elayed release Take 1 capsule every day by oral route. 08/21 completed Not Available Not Available Not Available Farxiga 5 mg tablet Take 1 tablet every day by oral route, for diabetes . 01/27 completed Not Available Not Available Not Available Jardiance 10 mg tablet Take 1 tablet every day by oral route as directed , for Diabetes . 08/11 completed Not Available Not Available Not Available Fluzone 9682-5228 45 mcg (15 mcg x 3)/0.5 mL intramusc ular suspensio n active Not Available Not Available Not Available Wal-Phed D 120 mg tablet,ex tended release TAKE 1 TABLET BY MOUTH BID 09/20 completed Not Available Not Available Not Available Fluvirin 5153-3587 45 mcg (15 mcg x 3)/0.5 mL intramusc ular suspensio n ADM 0.5ML IM UTD 03/03 completed Not Available Not Available Not Available ergocalci ferol (vitamin D2) 50 mcg (2,000 unit) capsule Take 1 capsule every day by oral route as directed . 2023 active Not Available Not Available Not Avai lable OneTouch Ultra2 Meter USE DIRECTED 02/06 completed Not Available Not Available Not Available OneTouch Delica Plus Lancet 33 gauge TEST SUGARS FASTING ON DAILY BASIS FOR 90 DAYS 02/06 completed Not Available Not Available Not Available Antivert 25 mg chewable tablet 01/27 completed Not Available Not Available Not Available Vitals Date Recorded Body height Body mass index (BMI) Body weight Body temperature Heart rate Oxygen saturation Oxygen saturation in Arterial blood by Pulse oximetry Systolic And Diastolic Provider Name and Address Organization Details Last Updated DateTime 5 147.32 cm 56 kg/m2 200526. 76 g 97.3 [degF] 85 /min 90 % 90 % 128/78 mm[Hg] Meenakshi Aj [place] [facility] [employer] 5 14:51:39 Date Recorded Body height Body mass index (BMI) Body weight Body temperature Heart rate Oxygen saturation Oxygen saturation in Arterial blood by Pulse oximetry Systolic And Diastolic Provider Name and Address Organization Details Last Updated DateTime 4 147.32 cm 52.7 kg/m2 160641. 28 g 97.5 [degF] 83 /min 96 % 96 % 148/72 mm[Hg] Aleja Chapa RN [facility] [employer] [facility] 4 15:30:40 Date Recorded Body height Body mass index (BMI) Body weight Body temperature Heart rate Oxygen saturation Oxygen saturation in Arterial blood by Pulse oximetry Pain severity - 0-10 verbal numeric rating [Score] - Reported Systolic And Diastolic Provider Name and Address Organization Details Last Updated DateTime 4 147.32 cm 54.5 kg/m2 793212. 61 g 95.7 [degF] 84 /min 91 % 91 % 9 144/70 mm[Hg] Oliva Littlejohn MA [facility] [employer] 4 10:20:40 Date Recorded Body height Body mass index (BMI) Body weight Body temperature Heart rate Oxygen saturation Oxygen saturation in Arterial blood by Pulse oximetry Inhaled oxygen flow rate Systolic And Diastolic Provider Name and Address Organization Details Last Updated DateTime 5 147.32 cm 55.2 kg/m2 624870. 39 g 98.6 [degF] 76 /min 98 % 98 % 2 L/min 128/72 mm[Hg] Meenakshi Aj MA [facility] [employer] [facility] 5 11:07:36 Date Recorded Body height Body mass index (BMI) Body weight Body temperature Heart rate Oxygen saturation Oxygen saturation in Arterial blood by Pulse oximetry Pain severity - 0-10 verbal numeric rating [Score] - Reported Systolic And Diastolic Provider Name and Address Organization Details Last Updated DateTime 4 147.32 cm 55 kg/m2 974192. 79 g 98.1 [degF] 72 /min 94 % 94 % 9 140/74 mm[Hg] Oliva Littlejohn MA [facility] [employer] 4 09:41:38 Social History Question Answer Notes LastModified by Organizat ion Details LastModified Time Tobacco Smoking Status Never Smoker Not Available [facility] 07/24/2022 08:44:45 Do You Have An Advance Directive? No [id number] Information not available 07/24/2022 Are You Blind Or Do You Have Difficulty Seeing? No [id number] Information not available 07/24/2022 Is Blood Transfusion Acceptable In An Emergency? Yes [email or web address] Information not available 01/14/2024 What Is Your Level Of Caffeine Consumption? Moderate [id number] Information not available 07/24/2022 How Much Tobacco Do You Chew? None [id number] Information not available 07/24/2022 In The 14 Days Before Symptom Onset, Have You Had Close Contact With A Laboratory-confir med COVID-19 While That Case Was Ill? No [id number] Information not available 07/24/2022 In The 14 Days Before Symptom Onset, Have You Had Close Contact With A Person Who Is Under Investigation For COVID-19 While That Person Was Ill? No [id number] Information not available 07/24/2022 Are You Deaf Or Do You Have Serious Difficulty Hearing? No [id number] Information not available 07/24/2022 What Type Of Diet Are You Following? REGULAR BRAT Diet As Of Right Now [id number] Information not available 07/24/2022 Which Illicit Or Recreational Drugs Have You Used? No [id number] Information not available 07/24/2022 What Is The Highest Grade Or Level Of School You Have Completed Or The Highest Degree You Have Received? [id number] [email or web address] Information not available 01/14/2024 Do You Have An Electrostatic Air Filter? No Information not available 01/27/2025 How Many Days Of Moderate To Strenuous Exercise, Like A Brisk Walk, Did You Do In The Last 7 Days? 0 Information not available 01/14/2024 Have There Been Any Changes To Your Family Or Social Situation? Yes Livinging In Hotel Right Now Information not available 01/14/2024 What Is The Fluoride Status Of Your Home? Unknown [email or web address] Information not available 01/14/2024 Are There Any Guns Present In Your Home? No [id number] Information not available 07/24/2022 Do You Have A Humidifier? No Information not available 01/27/2025 Do You Use Insect Repellent Routinely? No Information not available 01/14/2024 Where Do You Live? Other Information not available 01/14/2024 Advance Directive- Providers Has Reviewed Directive And Consents To Follow Them (insert Provider Name With Any Objectives In Notes Field) No [email or web address] Information not available 01/14/2024 Presence Of Domestic Violence No [email or web address] Information no t available 01/14/2024 Guns Present In The Home? No [email or web address] Information not available 01/14/2024 Are You Able To Care For Yourself? Yes [email or web address] Information not available 01/14/2024 Are You Blind Or Do Yo Have Difficulty Seeing? No [email or web address] Information not available 01/14/2024 Are You Deaf Or Do You Have Serious Difficulty Hearing? No [email or web address] Information not available 01/14/2024 General Stress Level? Moderate [email or web address] Information not available 01/14/2024 Live Alone Of With Others? With Others [email or web address] Information not available 01/14/2024 Do You Have A Medical Power Of Casing Sewer? No [email or web address] Information not available 01/14/2024 Do You Have Moisture Problems In Your Home? No Information not available 01/27/2025 What Was The Date Of Your Most Recent Tobacco Screening? 01/27/2025 Information not available 01/27/2025 How Many Children Do You Have? 2 MIGRATION.[id number] [id number] Information not available 07/24/2022 Do You Have Any Pets? Yes Dog [email or web address] Information not available 01/14/2024 What Is Your Relationship Status? Information not available 01/14/2024 Do You Use Your Seat Belt Or Car Seat Routinely? Yes Information not available 01/14/2024 Are You Sexually Active? No Information not available 01/14/2024 Do You Have Smoke And Carbon Monoxide Detectors In Your Home? Yes Information not available 01/14/2024 Are You Passively Exposed To Smoke? No MIGRATION.66201 [id number] Information not available 07/24/2022 Are There Any Smokers In Your House? No Information not available 01/14/2024 How Much Tobacco Do You Smoke? No MIGRATION.34322 72065 Information not available 07/24/2022 What Types Of Sporting Activities Do You Participate In? None [email or web address] Information not available 01/14/2024 Do You Use Sunscreen Routinely? No MIGRATION.31934 [id number] Information not available 07/24/2022 Has Tobacco Cessation Counseling Been Provided? No [email or web address] Information not available 01/14/2024 How Many Years Have You Smoked Tobacco? 0 MIGRATION.80806 36500 Information not available 07/24/2022 Have You Recently Traveled Abroad? No MIGRATION.92658 15851 Information not available 07/24/2022 Do You Have Difficulty Walking Or Climbing Stairs? Yes MIGRATION.66223 62164 Information not available 07/24/2022 Do You Have Any Dietary Restrictions? No MIGRATION.58668 78638 Information not available 07/24/2022 Sex: Unknown Functional Status Question Answer Note LastModified by Organizat ion Details LastModified Time Do you use any illicit or recreational drugs? No Information not available 01/14/2024 Do you or have you ever used any other forms of tobacco or nicotine? No [email or web address] Information not available 01/14/2024 What is your level of alcohol consumption? None MIGRATION.80697 61877 Information not available 07/24/2022 Do you or have you ever used smokeless tobacco? Never used smokeless tobacco MIGRATION.34569 98653 Information not available 07/24/2022 Are you currently employed? No Information not available 01/14/2024 Have you been exposed to chemicals or toxins? not that aware of Information not available 01/27/2025 Do you have difficulty doing errands alone? No MIGRATION.60238 50477 Information not available 07/24/2022 What is your occupation? none Disability Information not available 01/14/2024 Do you have difficulty dressing, bathing, grooming, or toileting? No MIGRATION.61427 75049 Information not available 07/24/2022 Do you or have you ever used e-cigarettes or vape? Never used electronic cigarettes MIGRATION.02750 18326 Information not available 07/24/2022 What is your exercise level? Occasional MIGRATION.44557 94046 Information not available 07/24/2022 Mental Status Question Answer Note LastModified by Organizat ion Details LastModified Time Do you feel stressed (tense, restless, nervous, or anxious, or unable to sleep at night)? [id number] Information not available 01/14/2024 Do you have difficulty concentrating, remembering or making decisions? No MIGRATION.[id number] 26 Information not available 07/24/2022 Family History Relationship Description Onset Age of this Age Resolved Age Notes LastModified by Organization Details LastModified Time Maternal Grandmother Diabetes mellitus MIGRATION.370 [id number] Not available 07/24/2022 08:44:54 Father Hypertensive disorder MIGRATION.614 [id number] Not available 07/24/2022 08:44:54 Father Malignant neoplasm of bone MIGRATION.409 [id number] Not available 07/24/2022 08:44:54 Paternal Grandfather Heart disease MIGRATION.770 [id number] Not available 07/24/2022 08:44:54 Mother Metastatic carcinoma to skin MIGRATION.884 [id number] Not available 07/24/2022 08:44:54 Sister Carcinoma in situ of breast MIGRATION.892 [id number] Not available 07/24/2022 08:44:54 Medical History Condition Response BLINDNESS N RHEUMATIC FEVER N KIDNEY STONES N BLADDER PROBLEMS N MRSA N OTHER # 1 N POLIO N LUNG DISEASE/DISORDER Y RADIATION / CHEMOTHERAPY N COPD N Other # 2 N BLOOD DISEASES N SURGERY N EAR OR HEARING PROBLEMS N MUMPS N BOWEL PROBLEMS N FEMALE PROBLEMS / INFECTIONS N DEPRESSION (INCLUDING POST ) N STROKE/TIA N THYROID DISEASE Y ULCERS N BENIGN PROSTATIC HYPERPLASIA N MEASLES N CERVICALGIA N TB SKIN TEST N MYOCARDIAL INFARCTION N PARAPELGIA N OBESITY Y GERD/NAUSEA Y ANEURYSM N URINARY/BLADDER/KIDNEY PROBLEMS N CORONARY ARTERY DISEASE (CAD) N MENIERE'S DISEASE N ADDICTION CONCERNS N ENDOMETRIOSIS N USE OF BLOOD THINNERS N SKIN PROBLEMS N EMPHYSEMA N GASTROINTESTINAL DISORDER N MUSCLE,JOINT OR BONE PROBLEMS N GASTROINTESTINAL BLEEDING N BLOOD CLOTS N ASTHMA N CATARACTS N ERECTILE DYSFUNCTION N GI PROBLEMS N CHF N Low Testosterone N NEUROPATHY N INFERTILITY N AIDS/HIV N FRACTURES N CHEMOTHERAPY / RADIATION N VISION/EYE PROBLEMS N LIVER DISEASE N MALE HYPOGONADISM N HYPERTENSION N TOURETTE'S N ANXIETY DISORDER N BLOOD TRANSFUSION N ANEMIA/BLOOD DISORDER Y CHRONIC EAR INFECTIONS N BRONCHITIS N TUBERCULOSIS N GLAUCOMA N FOOT PROBLEM N DIVERTICULITIS N CHICKENPOX N SLEEP APNEA N ALLERGIES/HAYFEVER N INFECTIOUS DISEASE N HEART ARRHYTHMIA N PROSTATE N INSOMNIA N HIGH CHOLESTEROL / HYPERLIPIDEMIA Y HYPERTHYROIDISM N EYE PROBLEMS N EATING DISORDER N EDEMA N CHRONIC PAIN SYNDROME N CAROTID BLOCKAGE N CONSTIPATION N BACK / NECK PROBLEMS N HAVE YOU BEEN HOSPITALIZED OR SEEN IN [facility] IN THE PAST YEAR ? N ATHEROSCLEROSIS N BREAST PROBLEMS N DIALYSIS N ECZEMA N FIBROMYALGIA N OSTEOPOROSIS N ARTHRITIS N NO SIGNIFICANT PAST MEDICAL HISTORY Y APPENDICITIS N DIABETES, TYPE Y BAD TEETH N HEARTBURN / REFLUX Y ADD/ADHD N AUTISM SPECTRUM DISORDER (ASD) N HEPATITIS / LIVER DISEASE N PULMONARY DISEASE Y GOUT N SLEEP DISORDER Y ALZHEIMER'S DISEASE N PAIN N HERPES N DEMENTIA N HEADACHES/MIGRAINES Y SEIZURES/EPILEPSY N VASCULAR DISEASE Y PACEMAKER N DIZZINESS Y HEART DISEASE/HEART PROBLEMS Y KIDNEY DISEASE Y DEVELOPMENTAL OR BEHAVIORAL DISORDERS N MULTIPLE SCLEROSIS N SCARLET FEVER N MENTAL DISORDER/ILLNESS N CARDIAC ARRHYTHMIA N CANCER: SPECIFY Y PNEUMONIA N ATRIAL FIBRILLATION N Gall Stones N PULMONARY EMBOLISM N AUTOIMMUNE DISEASE N Gynecological History Statement/Question Response Abnormal Pap N Date of Last Mammogram Date of LMP Dislike of Light during Menstrual Headac he N Colposcopy Date of Last Pap Current Control Method Hysterectom y Age at Menarche 10 Breast Problems no How many live births 2 Date of Last Mammogram Most Recent Bone Density Menses Monthly N Obstetrics History GPAL:G 2 P 2 0 0 2 Type Value Multiple Births 0 Full Term 2 Induced 0 Spontaneous 0 Premature 0 Living 2 Ectopics 0 Total 2 Immunizations Vaccine Type Date Status Note Provider Nam e and Address Organization Details Recorded Time zoster recombinant 3 completed Kalie Kaufman APRN [address], [address], [place], [address], [employer] [facility] 01/13/2024 15:06:20 COVID-19 vaccine, vector-nr, [id number], PF, 0.5 mL 1 completed Kalie Kaufman APRN [address], [address], [place], [address], [facility] 01/13/2024 15:06:20 Influenza, split virus, trivalent, preservative 5 completed Kalie Kaufman APRN [address], [place], [address], [facility] 01/13/2024 15:06:20 Influenza, split virus, trivalent, PF 6 completed Kalie Kaufman APRN [address], [address], [place], [address], [facility] 01/13/2024 15:06:20 Hep A, adult 1 completed Kalie Kaufman APRN [address], [place], [address], [facility] [employer] [facility] 01/13/2024 15:06:20 Influenza, split virus, quadrivalent, PF 0 completed Kalie Kaufman APRN [address], [place], [address], [facility] [employer] [facility] 01/13/2024 15:06:20 Influenza, split virus, quadrivalent, PF 1 completed Kalie Kaufman APRN [address], [place], [address], [facility] [employer] [facility] 01/13/2024 15:06:20 Influenza, split virus, quadrivalent, PF 0 completed Kalie Kaufman APRN [address], [address], [place], [address], [facility] [employer] [facility] 01/13/2024 15:06:20 Tdap 4 completed Kalie Kaufman APRN [address], [place], [address], [facility] [employer] [facility] 04/12/2024 09:45:23 Influenza, split virus, quadrivalent, PF 3 completed Jennifer Peck LPN null, [facility] [employer] [facility] 02/21/2023 15:36:38 Influenza, split virus, trivalent, PF 3 completed Kalie Kaufman APRN [address], [place], [address], [facility] [employer] [facility] 01/13/2024 15:06:20 Influenza, split virus, quadrivalent, PF 6 completed Kalie Kaufman APRN [address], [place], [address], [facility] [employer] [facility] 01/13/2024 15:06:20 Influenza, split virus, quadrivalent, preservative 0 completed Kalie Kaufman, [employer] [address], [place], [address], [facility] 01/13/2024 15:06:20 Pneumococcal conjugate PCV 13 1 completed Not Available [facility] 07/07/2023 11:51:53 Tdap 1 completed Not Available [facility] 07/07/2023 11:51:52 Influenza, split virus, quadrivalent, PF 8 completed Not Available [facility] 07/07/2023 11:51:53 Influenza, split virus, quadrivalent, PF 4 completed Not Available [facility] 07/07/2023 11:51:53 Past Encounters Encounter ID Performer Location Encounter Start Date Encounter Closed Date Diagnosis/Indication Diagnosis SNOMED-CT Code Diagnosis ICD10 Code Diagnosis IMO Codes Diagnosis Note [id number] YOBANI Mcdaniel S_G Primary Care [facility] [address] [address] [place] [address] 09/14/2020 00:00:00 09/14/2020 21:09:28 [id number] YOBANI Mcdaniel [facility] Care [facility] [address] [facility] [address] [place] [address] 09/28/2020 00:00:00 09/28/2020 19:32:16 [id number] Gareth Portillo MD S_GMG [facility] [address] [facility], [facility] [address] [place] [address] 10/03/2020 00:00:00 10/03/2020 12:49:42 [id number] Reji luz MD S_G General Surgery [address] [place], [place] [address]., [facility] [address] [place] [address] 10/05/2020 00:00:00 10/05/2020 13:46:44 [id number] Reji luz MD S_GMG General Surgery [address] [place], [place] [address] [facility] [address] [place] [address] 11/21/2020 00:00:00 11/21/2020 12:58:22 [id number] Veronika Agarwal MD [facility] Primary Care [place] [address] [place] [address] 11/23/2020 00:00:00 11/23/2020 12:50:48 [id number] Reji luz MD [facility] General Surgery [address] [address] 11/30/2020 00:00:00 11/30/2020 12:04:22 [id number] Veroinka Agarwal MD [facility] Primary Care [place] [address] [place] [address] 12/07/2020 00:00:00 12/07/2020 12:03:26 [id number] Reji luz MD [facility] General Surgery [address] [address] 12/12/2020 00:00:00 12/12/2020 13:05:42 [id number] Veronika Agarwal MD [facility] Primary Care [place] [address] [place] [address] 12/21/2020 00:00:00 12/21/2020 12:46:48 [id number] Reji luz MD [facility] General Surgery [address] [address] 01/09/2021 00:00:00 01/09/2021 12:06:14 [id number] DANICA Lowery [facility] Primary Care [place] [address] [place] [address] 04/09/2021 00:00:00 04/09/2021 15:02:49 [id number] DANICA [facility] [place] [address] [place] [address] 06/04/2021 00:00:00 06/04/2021 16:13:26 [id number] Veronika Agarwal MD [facility] Primary Care [place] [address] [place] [address] 07/11/2021 00:00:00 07/23/2021 09:12:49 [id number] Veronika Agarwal MD S_GMG Primary Care [place] [address] [place] [address] 09/12/2021 00:00:00 09/21/2021 11:02:30 [id number] Veronika Agarwal MD S_[facility] Primary [facility] [place] [address] [place] [address] 10/10/2021 00:00:00 10/22/2021 20:31:27 [id number] Sabi Marquez MD S_GMG [facility] [place] [address] [place] [address] 10/23/2021 00:00:00 10/23/2021 17:33:32 [id number] Veronika Agarwal MD S_[facility] Primary [facility] [place] [address] [place] [address] 11/20/2021 00:00:00 11/20/2021 11:01:10 [id number] YOBANI Mcdaniel S_[facility] Primary [facility] [place] [address] [place] [address] 12/06/2021 00:00:00 12/06/2021 09:16:06 [id number] DANICA Lowery S_[facility] Primary [facility] [place] [address] [place] [address] 01/03/2022 00:00:00 01/03/2022 11:17:55 [id number] DANICA Lowery S_[facility] Primary [facility] [place] [address] [place] [address] 02/22/2022 00:00:00 02/22/2022 12:15:36 [id number] DANICA Lowery [facility] Primary [facility] [place] [address] [place] [address] 07/30/2022 10:12:03 07/30/2022 13:40:55 Pain in right foot [id number] 56462 M79.671 XR R Foot 07/15/22- unremarkab le.Pain is still present but she has not been using crutches as directed or resting it.Will do a course of steroids for inflammati on, advised to ice/elevat e as much as she can, will have her take a few days off from work where she is on her feet all the time.Will then send to ortho for further evaluation , she is also needing new referral for her knees as well. Pain of bi lateral knee joints [id number] 81595 M25.561 M25.245 [id number] Thaddeus Ardon MD [facility] Ortho [place] [address] [facility], [address] [place] [address] 02/06/2023 13:55:06 02/06/2023 14:52:09 Pain of left knee joint [id number] 76885 M25.625 [id number] Veronika Agarwal MD [facility] Primary Care [facility] [address] [facility] [address] [place] [address] 02/21/2023 13:47:33 02/21/2023 15:44:43 Pain of bilateral knee joints 2160755933 51501 M25.561 starts PT on 03/04Recen tly had cortisone injection to left-min improvemen tstates Tylenol 3 has not been helping as much as the tramadol did in the pastEncour aged to stop tylenol 3Refill of tramadol given Administra tion of influenza vaccine 52476428 Z23 Mixed anxi ety and depressive disorder 724369368 F41.8 currently untreated, never tried anything the pastsometi mes has panic attacks, heaviness on chest, uncontroll able cryingWill trial sertraline f/u in 1 month [id number] Veronika Agarwal MD [facility] Primary Care [facility] [address] [facility] [address] [place] [address] 04/04/2023 09:10:33 04/04/2023 10:48:58 Pain of bilateral knee joints 6577561902 50040 M25.561 -pain rated at 01/02 currently- uses tramadol q6prn and tylenol as need-stren gth and ROM are limited-le yeboah has completed physical therapy with no improvemen t-xray of left knee-no abnormalit y 02-04-23-lazo s not had xray of right knee-order ed-MRI of both knees ordered-le yeboah is wanting a new ortho-will generate after review of imaging-pa in management referral given Mixed anxi ety and depressive disorder 515504540 F41.8 -pt has noted no change to her condition- still noting panic attacks every couple days-will trial propanolol for panic attacks-wi increase sertraline to 50 mg for anxiety/de p-declines counseling referral-f /u in 1 month [id number] WESLEY Zhong [facility] Primary Care [facility] [address] [facility] [address] [place] [address] 10/31/2023 15:15:33 10/31/2023 16:13:30 Dizziness 215567658 R42 -was given meclizine in the [facility] ed 2 rounds of antibiotic s Acute sinusitis 62888821 J01.90 Hypothyroidism 59065899 E03.9 -adding levothyrox ine 50mcg to make complete dose of 250mcg-ref erral given Pain of bi lateral knee joints 4075871272 43946 M25.561 -pain rated at 8/10 currently- uses tramadol q6prn and tylenol as need-stren gth and ROM are limited-le yeboah has completed physical therapy with no improvemen t-xray of left knee-no abnormalit y 02-04-23-lazo s not had xray of right knee-order ed-MRI of both knees ordered-le yeboah is wanting a new ortho-will generate after review of imaging-pa in management referral given Drug of abuse screen 897 81431 Z02.83 [id number] Jonathan castellanos MD [facility] Internal Med Rosy johnson [address] [place] [address] 01/14/2024 10:08:50 01/14/2024 11:38:37 Iron deficiency anemia 41235215 D50.9 D51.0 Hyperlipidemia 89121729 E78.5 Z79.899 Hypothyroidism 33062979 E03.9 Gout 87715533 M10.9 Type 2 sara betes mellitus without complication 450704437 E11.9 Congestive heart failure 35637095 I50.9 Screening mammography 24 214499 Z12.31 Adult heal th examination 312136970 Z00.00 Screening for disorder 701300385 Z13.9 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 Restless l egs syndrome 75555130 G25.81 Chronic ab dominal pain 996401552 R10.9 Mixed anxi ety and depressive disorder 313245958 F41.8 [id number] Jonathan castellanos MD [facility] Internal [facility] [address] [place] [address] 04/12/2024 09:20:19 04/12/2024 10:14:56 Screening for malignant neoplasm of colon 692571792 Z12.11 Hepatitis C screening 41 3051042 Z11.59 Type 2 sara betes mellitus without complication 499539340 E11.9 Lower resp iratory tract infection 96802247 J22 Pain of bi lateral knee joints 6891596479 36074 M25.562 M25.869 [id number] Jonathan castellanos MD [facility] Internal [place] [address] [address] [place] [address] [address] 08/11/2024 14:34:48 08/11/2024 15:14:24 Obstructive sleep apnea syndrome 35183379 G47.33 Congestive heart failure 57208863 I50.9 Cobalamin deficiency 190 158038 E53.8 Pain of mu ltiple joints 75760666 M25.50 Type 2 sara betes mellitus without complication 935311478 E11.9 Restless l egs syndrome 55170068 G25.81 Hypothyroidism 54862618 E03.9 Chronic ab dominal pain 056362626 R10.9 Gout 68575868 M10.9 Vitamin D deficiency 347 88811 E55.9 Essential hypertension 46771012 I10 [id number] Kahlil Graham MD S_[facility] Pulmonolo [facility] [address] [place], [place] [address] 01/27/2025 10:41:04 01/28/2025 13:59:16 Sleep apnea 53490024 G47.30 G47.33 [id number] Sleep study order today-will order titration as soon as this is doneESS-Di scussed sleep hygeineAdv ised good sleep habits and patterns:- Set a goal for at least 7 to 8 hours of sleep time per day-Use the bed mainly for sleep and to go to bed only when tired. If unable to fall asleep after 30 minutes, patient should get out of bed but should not engage in any activity that requires sustained mental alertness. -Maintain a bedtime and wake-up time even on weekends or day off of work.-Avoi d excessive naps during the daytime. If a nap is necessary, limit to no more than 30 minutes.-M inimize enviroment al noise, bright lights, and extremitie s in bedroom temperatur es.-Avoid alcohol, caffeinate d beverages, and nicotine products for at least 6 hours prior to bedtime.-A void strenuous exercise and large meals for at least 4 hours prior to bedtime.-D iscussed reportable signs and symptoms of concern History of heart failure 012513237 Z86.79 736008 on O2 2L [place]-has to see her cardiologi [facility] Health Concerns Section Related Observation LastModified by Organization Detai ls LastModified Time None Recorded Concern Status LastModified by Organization Details LastModified Time None Recorded Advance Directives Directive N: Payers Insurance Date Sequence Insurance Name Policy Number Policy Meadows Covered Member ID Meadows Member ID Guarantor Name 08/11/2024 1 [employer] (MEDICARE REPLACEMENT/A DVANTAGE - PPO) [id number] Cassy Jernigan [id number] Cassy Jernigan 04/12/[address] [facility] (MEDICARE REPLACEMENT/A DVANTAGE - HMO) [id number] Cassy Jernigan [id number] Cassy Jernigan 04/12/2024 2 [place] Cassy Jernigan [id number] Cassy Jernigan 01/27/[address] [facility] (MEDICARE REPLACEMENT/A DVANTAGE - HMO) [id number] Cassy Jernigan [id number] Cassy Jernigan Notes Date Note Type Note Provider Name and Address Organization Details Recorded Time 4 text/html pt is here for f/u Sesar YOBANI Jurado-Julia [address], [place], [address], [employer] 10/31/2023 16:22:29 4 text/html Cassy presents today for follow up for CT scan of abdomen/pelvis. Discussed last CT scan results, pt verbalized understanding. Kalie Kaufman APRN [address], [place], [address], [employer] 01/14/2024 14:03:18 4 text/html Cassy presents today for 3 month follow up. She states that her oxygen level has been dropping to 88%. She states the she does not have a lot of shortness of breath. She states that she was in the ED for a head injury when a shelf fell while moving. Records have been requested. 01/14/2024athy presents today for follow up for CT scan of abdomen/pelvis. Discussed last CT scan results, pt verbalized understanding. Kalie Kaufman APRN [address], [place], [address], [employer] 04/12/2024 10:11:13 5 text/html Cassy presents today for 6 month follow up. She states that she has a headache. Her oxygen saturation upon arrival was 76% and then it increased to 91% at rest. She gets short of breath sometimes when she walks a lot. She states that she has had some leg pain. Instructed her on getting support stockings to help with circulation and help decrease swelling. She states that her blood sugars have been running about 130. 04/12/2024jessica presents today for 3 month follow up. She states that her oxygen level has been dropping to 88%. She states the she does not have a lot of shortness of breath. She states that she was in the ED for a head injury when a shelf fell while moving. Records have been requested. 01/14/2024jessica presents today for follow up for CT scan of abdomen/pelvis. Discussed last CT scan results, pt verbalized understanding. Kalie Kaufman APRN [address], [place], [address], [facility] [facility] 08/11/2024 15:12:08 5 text/html Obstructive Sleep ApneaReported by PatientHPIFor associated symptoms, patient reportsmorning dry mouth,morning headache,postnasal drip,dysphagia,awakening short of breath,night sweats,daytime sleepiness,suddenly falling asleep during the day,excess napping,impaired work performance,nasal congestion,loud snoring,gasping for air,witnessed apnea,mouth breathing,hyperactivity, poor concentration,amnesia, andirritabilitybut reportsno hyponasal speech. For severity, patient reportssevere. For timing, patient reportsdaily. For duration, patient reportsfrequent. For context, patient reportsinconsistent sleep routine,hypertension,fam verónica history of sleep disorder,observed apnea, andcardiovascular disease. For aggravating factors, patient reportsnone. For alleviating factors, patient reportspositive airway pressure devices(bipap in hospital).Patient was admitted for CHF and noted to have severe apnea-was on BIPap in hosptial and needs follow up and sleep study order. She is currently on O2 2L NC which has helped her feel less tired and sleeps better with it.ECHO done in hospital shows EF of 55% Tenisha Ragland NP [address], [facility] [address], [place], [address], [facility] 01/27/2025 11:36:25 OBGyn Episode No OBEpisode recorded.
--- OUTSIDE RECORDS SUMMARY | 2025-03-09 15:00 | XMS_ITS ---
Author Organization [facility] Address [address] [place] [address] Care Team Providers Care Perishable Freight Inspector Name Role Phone Mina Jhonny Unavailable [phone] Social History Sex Assigned At : Social History Observation Description Sex Assigned At Female Encounters Encounter Location Date Provider Diagnosis [place] [facility] [address] [place] [address] 03/09/2025 Jhonny Enriquez Plan Of Treatment No Information Progress Notes * DOMONIQUE SHINOB:1970 (54 yo F)Acc No.[id number]:03/09/2025 Progress Notes Patient: DEANGELO FONSECA Provider: Doretha CASPER MD, Sofia.Francia.C.P, F.A.S.N. :1970 A ge:54 Y S ex:Female Date:03/09/2025 Address:[address] [place] [address] Subjective: * Chief Complaints: Objective: Assessment: Plan: * Billing Information: * Visit Code: * Procedure Codes: * Electronic signature of Pratibha Enriquez MD on 04/07/2025 at 10:03 AM MACHINERY ENGINEER Sign off status: Pending * Provider: Doretha CASPER MD, Sofia.Francia.C.P, F.A.S.N. Date: Generated for Printing/Faxing/eTransmitting on: 06/07/2024 10:03 AM MACHINERY ENGINEER
--- OUTSIDE RECORDS SUMMARY | 2025-03-09 15:00 | XMS_ITS ---
Author Organization [facility] Address [address] [place] [address] Care Team Providers Care Nursing Program Coordinator Name Role Phone Mina Jhonny Unavailable [phone] Social History Sex Assigned At : Social History Observation Description Sex Assigned At Female Encounters Encounter Location Date Provider Diagnosis [place] [facility] [address] [place] [address] 03/09/2025 Jhonny Enriquez Plan Of Treatment No Information Progress Notes * DOMONIQUE SHINOB:1970 (54 yo F)Acc No.[id number]:03/09/2025 Progress Notes Patient: DEANGELO FONSECA Provider: Doretha CASPER MD, Sofia.Francia.C.P, F.A.S.N. :1970 A ge:54 Y S ex:Female Date:03/09/2025 Address:[address] [place] [address] Subjective: * Chief Complaints: Objective: Assessment: Plan: * Billing Information: * Visit Code: * Procedure Codes: * Electronic signature of Pratibha Enriquez MD on 03/28/2025 at 11:17 AM PRECISION PRINTING WORKER Sign off status: Pending * Provider: Doretha CASPER MD, Sofia.Francia.C.P, F.A.S.N. Date: Generated for Printing/Faxing/eTransmitting on: 05/28/2024 11:17 AM PRECISION PRINTING WORKER
--- OUTSIDE RECORDS SUMMARY | 2025-03-25 11:15 | XMS_ITS ---
Author Organization [facility] Address [address] [place] [address] Care Team Providers Care Chapter Relations Administrator Name Role Phone Mina Jhonny Unavailable [phone] Social History Sex Assigned At : Social History Observation Description Sex Assigned At Female Encounters Encounter Location Date Provider Diagnosis [place] [facility] [address] [facility] [address] [place] [address] 03/25/2025 Jhonny Enriquez Plan Of Treatment No Information Progress Notes * DOMONIQUE SHINOB:1970 (54 yo F)Acc No.[id number]:03/25/2025 Progress Notes Patient: DEANGELO FONSECA Provider: Doretha CASPER MD, Sofia.Francia.C.P, F.A.S.N. :1970 A ge:54 Y S ex:Female Date:03/25/2025 Address:[address] [place] [address] Subjective: * Chief Complaints: Objective: Assessment: Plan: * Billing Information: * Visit Code: * Procedure Codes: * Electronic signature of Pratibha Enriquez MD on 04/07/2025 at 10:04 AM TUB RIDER Sign off status: Pending * Provider: Doretha CASPER MD, Sofia.Francia.C.P, F.A.S.N. Date: Generated for Printing/Faxing/eTransmitting on: 06/07/2024 10:04 AM TUB RIDER
--- OUTSIDE RECORDS SUMMARY | 2025-03-25 11:15 | XMS_ITS ---
Author Organization [facility] Address [address] [place] [address] Care Team Providers Care Hand Packer Name Role Phone Mina Jhonny Unavailable [phone] Social History Sex Assigned At : Social History Observation Description Sex Assigned At Female Encounters Encounter Location Date Provider Diagnosis [place] [facility] [address] [facility] [address] [place] [address] 03/25/2025 Jhonny Enriquez Plan Of Treatment No Information Progress Notes * DOMONIQUE SHINOB:1970 (54 yo F)Acc No.[id number]:03/25/2025 Progress Notes Patient: DEANGELO FONSECA Provider: Doretha CASPER MD, Sofia.Francia.C.P, F.A.S.N. :1970 A ge:54 Y S ex:Female Date:03/25/2025 Address:[address] [place] [address] Subjective: * Chief Complaints: Objective: Assessment: Plan: * Billing Information: * Visit Code: * Procedure Codes: * Electronic signature of Pratibha Enriquez MD on 03/28/2025 at 11:18 AM EMBROIDERY PATTERNMAKER Sign off status: Pending * Provider: Doretha CASPER MD, Sofia.Francia.C.P, F.A.S.N. Date: Generated for Printing/Faxing/eTransmitting on: 05/28/2024 11:18 AM EMBROIDERY PATTERNMAKER
--- OUTSIDE RECORDS SUMMARY | 2025-03-28 11:18 | XMS_ITS | Clinical Summary ---
Author Organization [facility] Address [address] [place] [address] Care Team Providers Care Manufacturing Machine Operator Name Role Phone None, Physician Primary Care Provider Unavailabl e Source Comments [facility],non-owned Affiliates and Associated Physician Practices is amultiple site organization consisting of ambulatory clinics and hospital sitesin [place], [place], [place] and [place]. This disclosure is being madepursuant to the Care Everywhere program and may not contain all information available regarding this patient. Last updated 18.[facility] Allergies No known active allergies Medications * Be aware that medications may not be up to date on this document. Alwaysverify current medications with the patient. 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 Gender Identity Not on file Sexual Orientation [...] HIV SCREENING 1984 HEPATITIS C SCREENING 12/09/1987 DIABETES-SERUM CREATININE 12/14/1987 HEPATITIS B VACCINE (1 of 3 - 19+ 3-dose series) 1988 PNEUMOCOCCAL VACCINE 50+ (1 of 2 - PCV) 1988 PAP SMEAR 1990 DIABETES-STATIN 2009 ZOSTER VACCINE (1 of 2) 12/14/2019 HEPATITIS A VACCINE (2 of 2 - Risk 2-dose series) 12/23/2020 06/25/2020 DIABETES RETINOPATHY SCREENING 03/14/2022 DIABETES-FOOT EXAM WITH MONOFILAMENT 03/14/2022 DIABETES-HGB A1C 03/14/2022 DEPRESSION SCREENING 05/26/2024 DIABETES - URINE PROTEIN SCREENING 05/26/2024 MEDICARE AWV CALENDAR YEAR 2024 COVID-19 VACCINE (2 - season) 2025 07/31/2020 INFLUENZA VACCINE (#1) 2025 3, 02/17/2021, 03/20/2020, Additional history exists MAMMOGRAM 01/29/2026 01/30/2024, 04/17/2022 DTAP/TDAP/TD VACCINES (2 [...] complete this topic Insurance AET[employer] MEDICARE ADV [facility] Care Teams Manufacturing Machine Operator Relationship Specialty Start Date End Date None, Physician [facility] [place] [address] PCP - General 03/23/24
--- OUTSIDE RECORDS SUMMARY | 2025-03-28 11:18 | XMS_ITS | Encounter Summary ---
Author Organization 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
--- OUTSIDE RECORDS SUMMARY | 2025-03-28 11:18 | XMS_ITS | Clinical Summary ---
Author Organization [facility] Address [facility] [place] [address] Care Team Providers Care Central Station Operator Name Role Phone None, Provider MD [...] Vaccine: 50+ Years (2 of 2 - PCV20 or PCV21) 11/23/2021 11/23/2020 Zoster Vaccines (2 of 2) 04/18/2023 02/21/2023 COVID-19 Vaccine (2 - 2024- season) 2025 07/31/2020 Influenza Adult (#1) 2025 02/21/2023, 02/17/2021, 03/20/2020, Additional history exists Mammogram Screening 01/29/2026 01/30/2024, 04/17/2022, 01/08/2021 DTaP, Tdap and Td Vaccines (2 - Td or Tdap) 07/06/2030 07/06/2020 Hepatitis A Vaccines Aged Out 06/25/2020 No long er eligible based on patient's age to complete this topic Meningococcal B Vaccine Aged Out No l onger eligible based on patient's age to complete this topic Meningococcal Vaccine Aged Out No sandrita kam eligible based on patient's age to complete this topic RSV Immunizations Under 20 Months Aged Out No longer eligible based on patient's age to complete this topic Insurance AETNA MEDICARE Care Teams Central Station Operator Relationship Specialty Start Date End Date None, Provider, PCP - General UNKNOWN PHYSICIAN SPECIALTY 02/02/24
--- OUTSIDE RECORDS SUMMARY | 2025-03-28 11:18 | XMS_ITS | Clinical Summary ---
Author Organization [facility] [address] [place] [address] [place] [address] Care Team Providers Care Attending Radiologist Name Role Phone Daniele Eugene MD Unavailable Kalie Kaufman NP Primary Care Provider [phone] Allergies No known active allergies Medications levothyroxine (SYNTHROID) 150 mcg tabletIndicatio ns:hypothyroidi sm Take 1 tablet (150 mcg total) by mouth arts administrator before breakfast Active nystatin powder Apply [...] Palpitations 07/08/2023 Atherosclerotic heart diseas e of [place] coronary artery without angina pectoris 03/14/2022 Peripheral [...] (02/02/2021): Added automatically from request for surgery [id number] Breast mass 02/01/2021 Abnormal mammogram of both breasts 01/08/2021 Osteopenia 12/21/2020 Abnormal uterine bleeding (AUB) 03/30/2020 Postoperative visit 03/30/2020 Thickened endometrium 02/19/2020 Pelvic pain 02/17/2020 Overview (02/17/2020): Added automatically from request for surgery [id number] History of endometrial ablation 02/17/2020 Overview (02/17/2020): Added automatically from request for surgery [id number] Shortness of breath 01/21/2019 Allergic rhinitis 12/10/2018 [...] highly processed carbohydrates. 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 Gender Identity Not on file Sexual Orientation Not on file Obstetrics History Para Term AB IAB SAB Ectopic Multiple Livin g Live Births 2 2 2 2 Date Outcome GA Total Labor Labor/2nd/3rd Weight Sex Type Anes PTL Tawanna A1 A5 Name Clin Term Term Last Filed Vital Signs Vital Sign Reading Time Taken Comments Blood Pressure 158/87 04/14/2024 2:30 PM MEDICAL TECH Pulse 80 04/14/2024 2:30 PM MEDICAL TECH Temperature 36.4 C (97.5 F) 04/14/2024 2:30 PM MEDICAL TECH Respiratory Rate 18 08/11/2023 2:45 PM CDT Oxygen Saturation 93% 04/14/2024 2:30 PM MEDICAL TECH Inhaled Oxygen Concentration - - Weight 116.6 kg (257 lb) 04/14/2024 2:30 PM MEDICAL TECH Height 147.3 cm (4' 10) 04/14/2024 2:30 PM MEDICAL TECH Body Mass Index 53.71 04/14/2024 2:30 PM MEDICAL TECH Plan of Treatment Health Maintenance Due Date [...] 03/23/2024, 07/06/2020 Medical Devices Implanted Type Area Solution Strategist Device Identifier Shelf Expiration Date Model / Serial / Lot Zafin [id number] Magseed 18ga 7cm Marker Breast Biopsy - [id number] Implanted:Qty: 2 on 03/01/2021 at [facility] Zafin [id number] 07/23/2024 [id number] / / [id number] Zafin [id number] Magseed 18ga 7cm Marker Breast Biopsy - [id number] Implanted:Qty: 1 on 03/01/2021 at [facility] Zafin [id number] 07/23/2024 [id number] / / [id number] Procedures Procedure Name Priority Date/Time Associated Diagnosis [...] has been scheduled to return to the [facility] for biopsy on 02/09/2024. This facility will [...] been scheduled to return to the [facility] for biopsy on 02/09/2024. This facility will [...] 42(L) 90 - 130 mL/min/1.[address] [facility] Comment: Interpretive Data Reference Interval Normal [...] MD PhD LAB BLOOD ORDERABLES Final Result [facility] Department [place] [address] * POCT hemoglobin A1c (03/13/2020 11:33 AM CDT) Hgb A1C, POC 5.8 4.0 - 6.0 % [facility] Est Average Gluc POC 120 mg/dL [facility] Comment: The ADA recommends reporting an estimated Average Glucose (eAG) with all Hemoglobin A1c results using the equation derived from a study of 507 normal and diabetic adults. Minority populations were underrepresented and children were not included. (Diabetes Care 31:8201-4593, 2008). The eAG is not equivalent to a fasting glucose. Blood specimen (specimen) 03/13/2020 11:33 AM CDT 03/13/2020 11:33 AM CDT us Jamie Moreno MD POINT OF CARE TEST ORDER OSMANY Final Result [facility] Department [place] [address] * (ABNORMAL) Lipid panel (10/26/2018 4:12 PM CDT) Cholesterol 187 30 - 199 mg/dL [facility] Comment: Interpretive Data Ages < or = [...] on 2018. Triglycerides 284(H) <=149 mg/dL [facility] Comment: Interpretive Data Ages < or = [...] - 10/26/2018 5:17 PM CDT Yonny White EXTENSION SERVICE SUPERVISOR LAB BLOOD ORDERABLES Final Result Performing Organization Address City/State/ZIP Co wi Phone Number [facility] [address] [place] [address] from Last 3 Months or Most Recently Relevant to Health Maintenance Insurance MEDICARE ADVANTAGE MEDICARE ADVANTAGE Advance Directives For more information, please contact: [phone] * Full Code (Latest Code Status on File) Date Activated Date Inactivated Comments 03/17/2020 4:35 PM 03/20/2020 2:24 PM Care Teams Attending Radiologist Relationship Specialty Start Date End Date Kalie Kaufman NP [address] [facility] [address] [place] [address] PCP - General Family Medicine 05/17/24 Daniele Eugene MD [address] [place] [address] Referring Physician Obstetrics and Gynecology 12/07/18
--- OUTSIDE RECORDS SUMMARY | 2025-03-28 11:18 | XMS_ITS | Patient Health Record ---
Author Organization [facility] Address [address] [facility] [address] [place] [address] Care Team Providers Care Reservations Manager Name Role Phone Mina Jhonny Unavailable [phone] Reason For Referral No Information Medications Medication [...] Status W/U Status Risk Notes Problem Hypothyroidism (14820977) Hypothyroidism, unspecified (E03.9) Active confirmed Problem Hyperparathyroidism (03379244) Hyperparathyroi dism, unspecified (E21.3) Active confirmed Problem Obesity (476281500) Obesity, unspecified (E66.9) Active confirmed Problem Sleep apnea (18077077) Sleep piping manager ea, 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) Active confirmed Problem Chronic pain syndrom e (157482262) Chronic pain syndrome (G89.4) Active confirmed Problem Essential hypertensi on (06630059) Essential hypertension (I10) Active confirmed Problem Chronic kidney disea se stage 3A (disorder) (578439095) Chronic kidney disease, stage 3a (N18.31) Active confirmed Encounters Encounter Location Date Provider Diagnosis [facility] [address] [place] [address] 02/02/2025 Jhonny Enriquez Chronic kidney disea se, stage 3a N18.31 ; Essential hypertension I10 ; Obesity, unspecified E66.9 ; Chronic pain syndrome G89.4 ; Hypothyroidism, unspecified E03.9 ; Hyperparathyroidism, unspecified E21.3 and Sleep apnea, unspecified G47.30 [facility] [address] [place] [address] 02/02/2025 Jhonny Enriquez Assessments Encounter Date Diagnosis [...] INTACT AND CALCIUM (8837) COMPREHENSIVE METABOLIC PANEL (95972) URIC ACID (905) 02/02/2025 CBC (INCLUDES DIFF/PLT) (6399) URINALYSIS, COMPLETE W/REFLEX TO CULTURE (3020) 02/02/2025 URINALYSIS, COMPLETE (7513) 02/02/2025 SED RATE BY MODIFIED WESTERGREN (809) HEMOGLOBIN A1c (496) 02/02/2025 VITAMIN D,25-OH,TOTAL,IA (13286) 025
--- OUTSIDE RECORDS SUMMARY | 2025-03-29 05:00 | XMS_ITS ---
Author Organization [facility] Address [address] [facility] [address] [place] [address] Care Team Providers Care Margarine Churn Operator Name Role Phone Irasema Siegel Primary Care Provider Karis Wray Unavailable [phone] REASON FOR VISIT Screening, home oxygen, sees kidney specialist 4ft10 252lbs Encounters Encounter Location Date Provider Diagnosis [facility] [address] [place] [address] 03/29/2025 Karis Curiel Plan Of Treatment No Information Progress Notes * Cassy SHINDOB: 0 (54 yo F)Acc No.[id number]:03/29/2025 Patient: Annalisa FONSECAkleber David Provider: Jackson Curiel MD :1970 A ge:54 Y S ex:Female Date:03/29/2025 [facility] Pcp:Irasema HILTON Subjective: * Chief Complaints: * 1 . Screening, home oxygen, sees kidney specialist 4ft10 252lbs. * Medical History: Objective: * Vitals: Assessment: Plan: * Treatment: * * Electronic signature of Monae Curiel MD on 04/07/2025 at 10:04 AM CLUB ATTENDANT Sign off status: Pending * Provider: Jackosn Curiel MD Date: 05/29/2024 Generated for Dayami dumont/Kendell/eTransmitting on: 06/07/2024 10:04 AM CLUB ATTENDANT
--- OUTSIDE RECORDS SUMMARY | 2025-03-30 04:40 | XMS_ITS ---
Author Organization [employer] Address [address] [facility]. [address] [place] [address] Care Team Providers Care Oracle Technical Architect Name Role Phone Irasema Siegel Primary Care Provider Unavail Dejan Byrnes Unavailable [phone] REASON FOR VISIT Screening, home oxygen, sees kidney specialist 4ft10 252lbs Medications Medication SIG (Take, Route, Frequency, Duration) Notes Start Date End Date Status PEG-3350/Electrolyte s 236 GM ML Orally twice a day, Follow Physician Instructions.; Duration: 1 days 03/14/2025 Active Na Sulfate-K Sulfate-Mg Sulf 17.5-3.13-1.6 GM/177ML ML Orally Twice a day,Follow Physician Instructions.; Duration: 1 days 177mL orally twice a day, Follow physician instructions. 02/21/2025 Active Encounters Encounter Location Date Provider Diagnosis [address] [address] 03/30/2025 Dejan Ann Plan Of Treatment No Information Progress Notes * Cassy SHINDOB: 0 (54 yo F)Acc No.[id number]:03/30/2025 Patient: Shaina ROSENBAUMCassy Provider: Stevie Ann MD :1970 A ge:54 Y S ex:Female Date:03/30/2025 Address:[address] [place], [place] [address] Pcp:Irasema HILTON Subjective: * Chief Complaints: * 1 . Screening, home oxygen, sees kidney specialist 4ft10 252lbs. * Medical History: * Medications: T aking Na Sulfate-K Sulfate-Mg Sulf 17.5-3.13-1.6 GM/177ML Solution ML Orally Twice a day,Follow Physician Instructions. , Notes to Pharmacist: 177mL orally twice a day, Follow physician instructions., Taking PEG-3350/Electrolytes 236 GM Solution Reconstituted ML Orally twice a day, Follow Physician Instructions. Objective: * Vitals: Assessment: Plan: * Treatment: * * Electronic signature of Jun Ann MD on 04/07/2025 at 10:03 AM INFORMATION MANAGER Sign off status: Pending * Provider: Stevie Ann MD Date: 05/30/2024 Generated for Dayami dumont/Kendell/Edithitting on: 06/07/2024 10:03 AM INFORMATION MANAGER
--- OUTSIDE RECORDS SUMMARY | 2025-04-07 10:03 | XMS_ITS | Clinical Summary ---
Author Organization [facility] [address] [place] [address] [place] [address] Care Team Providers Care Business Owner/Engineer Name Role Phone Daniele Eugene MD Unavailable [phone] Kalie Kaufman NP Primary Care Provider [phone] Allergies No known active allergies Medications levothyroxine (SYNTHROID) 150 mcg tabletIndicatio ns:hypothyroidi sm Take 1 tablet (150 mcg total) by mouth docking saw operator before breakfast Active nystatin powder Apply topically [...] Palpitations 07/08/2023 Atherosclerotic heart diseas e of [place] coronary artery without angina pectoris 03/14/2022 Peripheral [...] (02/02/2021): Added automatically from request for surgery [id number] Breast mass 02/01/2021 Abnormal mammogram of both breasts 01/08/2021 Osteopenia 12/21/2020 Abnormal uterine bleeding (AUB) 03/30/2020 Postoperative visit 03/30/2020 Thickened endometrium 02/19/2020 Pelvic pain 02/17/2020 Overview (02/17/2020): Added automatically from request for surgery [id number] History of endometrial ablation 02/17/2020 Overview (02/17/2020): Added automatically from request for surgery [id number] Shortness of breath 01/21/2019 Allergic rhinitis 12/10/2018 [...] highly processed carbohydrates. 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 Gender Identity Not on file Sexual Orientation Not on file Obstetrics History Para Term AB IAB SAB Ectopic Multiple Livin g Live Births 2 2 2 2 Date Outcome GA Total Labor Labor/2nd/3rd Weight Sex Type Anes PTL Tawanna A1 A5 Name Clin Term Term Last Filed Vital Signs Vital Sign Reading Time Taken Comments Blood Pressure 158/87 04/14/2024 2:30 PM BEVEL GEAR GENERATOR OPERATOR Pulse 80 04/14/2024 2:30 PM BEVEL GEAR GENERATOR OPERATOR Temperature 36.4 C (97.5 F) 04/14/2024 2:30 PM BEVEL GEAR GENERATOR OPERATOR Respiratory Rate 18 08/11/2023 2:45 PM CDT Oxygen Saturation 93% 04/14/2024 2:30 PM BEVEL GEAR GENERATOR OPERATOR Inhaled Oxygen Concentration - - Weight 116.6 kg (257 lb) 04/14/2024 2:30 PM BEVEL GEAR GENERATOR OPERATOR Height 147.3 cm (4' 10) 04/14/2024 2:30 PM BEVEL GEAR GENERATOR OPERATOR Body Mass Index 53.71 04/14/2024 2:30 PM BEVEL GEAR GENERATOR OPERATOR Plan of Treatment Health Maintenance Due Date [...] 03/23/2024, 07/06/2020 Medical Devices Implanted Type Area Golf Technician Device Identifier Shelf Expiration Date Model / Serial / Lot [employer] [id number] Magseed 18ga 7cm Marker Breast Biopsy - [id number] Implanted:Qty: 2 on 03/01/2021 at [facility] [employer] [id number] 07/23/2024 [id number] / / [id number] [employer] [id number] Magseed 18ga 7cm Marker Breast Biopsy - [id number] Implanted:Qty: 1 on 03/01/2021 at [facility] [employer] [id number] 07/23/2024 [id number] / / [id number] Procedures Procedure Name Priority Date/Time Associated Diagnosis [...] has been scheduled to return to the [facility] for biopsy on 02/09/2024. This facility [...] been scheduled to return to the [facility] for biopsy on 02/09/2024. This facility [...] 90 - 130 mL/min/1.7 3 m2 [facility] Comment: Interpretive Data Reference Interval Normal >/= [...] MD PhD LAB BLOOD ORDERABLES Final Result [facility] Department [place] [id number] * POCT hemoglobin A1c (03/13/2020 11:33 AM CDT) Hgb A1C, POC 5.8 4.0 - 6.0 % [facility] Est Average Gluc POC 120 mg/dL [facility] Comment: The ADA recommends reporting an estimated Average Glucose (eAG) with all Hemoglobin A1c results using the equation derived from a study of 507 normal and diabetic adults. Minority populations were underrepresented and children were not included. (Diabetes Care 31:7698-3953, 2008). The eAG is not equivalent to a fasting glucose. Blood specimen (specimen) 03/13/2020 11:33 AM CDT 03/13/2020 11:33 AM CDT us Jamie Moreno MD POINT OF CARE TEST ORDER OSMANY Final Result [facility] Department [place] [address] * (ABNORMAL) Lipid panel (10/26/2018 4:12 PM CDT) Cholesterol 187 30 - 199 mg/dL [facility] Comment: Interpretive Data Ages < or [...] on 2018. Triglycerides 284(H) <=149 mg/dL [facility] Comment: Interpretive Data Ages < or [...] - 10/26/2018 5:17 PM CDT Yonny White PERFORMANCE IMPROVEMENT ANALYST LAB BLOOD ORDERABLES Final Result Performing Organization Address City/State/ZIP [place] Phone Number [facility] [address] Department [place] [address] from Last 3 Months or Most Recently Relevant to Health Maintenance Insurance MEDICARE ADVANTAGE MEDICARE ADVANTAGE Advance Directives For more information, please contact: [phone] * Full Code (Latest Code Status on File) Date Activated Date Inactivated Comments 03/17/2020 4:35 PM 03/20/2020 2:24 PM Care Teams Business Owner/Engineer Relationship Specialty Start Date End Date Kalie Kaufman NP [address] [facility] [address] [place] [address] PCP - General Family Medicine 05/17/24 Daniele Eugene MD [address] [place] [address] Referring Physician Obstetrics and Gynecology 12/07/18
--- OUTSIDE RECORDS SUMMARY | 2025-04-07 10:04 | XMS_ITS | Patient Health Record ---
Author Organization [facility] Address [address] [place] [address] Care Team Providers Care Rocket Assembly Operator Name Role Phone Irasema Siegel Primary Care Provider Unavail able Dejan Ann Unavailable [phone] Karis Curiel Unavailable [phone] Reason For Referral No Information Medications Medication [...] Active Encounters Encounter Location Date Provider Diagnosis [facility] [address] [place] [address] 02/18/2025 Karis Curiel [facility], [address] [place] [address] 02/18/2025 Karis Curiel [facility], [address] [place] [address] 03/14/2025 Dejan Ann [facility], [address] [place] [address] 03/30/2025 Dejan Ann Plan Of Treatment No Information Insurance Providers Payer Name Payer Address Payer Phone Subscriber Number Group Number Insured Name Patient Relationship to Insured Coverage Start Date Coverage End Date [employer] Medicare Advantage HMO-POS [address] [address] [place] [address] [phone] [id number] Cassy Jernigan Self - patient is the insured
--- OUTSIDE RECORDS SUMMARY | 2025-04-07 10:04 | XMS_ITS | Clinical Summary ---
Author Organization [facility] Address [address] [place] [address] Care Team Providers Care Cinder Pitman Name Role Phone None, Physician Primary Care Provider Unavailabl e Source Comments [facility],non-owned Affiliates and Associated Physician Practices is amultiple site organization consisting of ambulatory clinics and hospital sitesin [place], [place], [place] and [place]. This disclosure is being madepursuant to the Care Everywhere program and may not contain all information available regarding this patient. Last updated 18.[facility] Allergies No known active allergies Medications * Be aware that medications may not be up to date on this document. Alwaysverify current medications with the patient. 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 Gender Identity Not on file Sexual Orientation [...] 2 - PCV) 1988 PAP SMEAR 1990 ZZRETIRED DIABETES-STATIN 2009 ZOSTER VACCINE (1 of 2) 12/14/2019 HEPATITIS A VACCINE (2 of 2 - Risk 2-dose series) 12/23/2020 06/25/2020 DIABETES RETINOPATHY SCREENING 03/14/2022 DIABETES-FOOT EXAM WITH MONOFILAMENT 03/14/2022 DIABETES-HGB A1C 03/14/2022 DEPRESSION SCREENING 05/26/2024 DIABETES - URINE PROTEIN SCREENING 05/26/2024 MEDICARE AWV CALENDAR YEAR 2024 COVID-19 VACCINE (2 - 2024- season) 2025 07/31/2020 INFLUENZA VACCINE (#1) 2025 [...] complete this topic Insurance [employer] MEDICARE ADV WC [employer] Care Teams Cinder Pitman Relationship Specialty Start Date End Date None, Physician [address] [place] [address] PCP - General 03/23/24
--- OUTSIDE RECORDS SUMMARY | 2025-04-07 10:04 | XMS_ITS | Encounter Summary ---
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
--- OUTSIDE RECORDS SUMMARY | 2025-04-07 10:04 | XMS_ITS | Patient Health Record ---
Author Organization [facility] Address [address] [place] [address] Care Team Providers Care Technician Trainee Name Role Phone Mina Jhonny Unavailable [phone] Reason For Referral No Information Medications Medication [...] Status W/U Status Risk Notes Problem Hypothyroidism (80605055) Hypothyroidism, unspecified (E03.9) Active confirmed Problem Hyperparathyroidism (54431910) Hyperparathyroi dism, unspecified (E21.3) Active confirmed Problem Obesity (153346102) Obesity, unspecified (E66.9) Active confirmed Problem Sleep apnea (72344126) 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, 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) Active confirmed Problem Chronic pain syndrom e (618491095) Chronic pain syndrome (G89.4) Active confirmed Problem Essential hypertensi on (37304623) Essential hypertension (I10) Active confirmed Problem Chronic kidney disea se stage 3A (disorder) (329864536) Chronic kidney disease, stage 3a (N18.31) Active confirmed Encounters Encounter Location Date Provider Diagnosis [facility] [address] [place] [address] 02/02/2025 Jhonny Enriquez Chronic kidney disea se, stage 3a N18.31 ; Essential hypertension I10 ; Obesity, unspecified E66.9 ; Chronic pain syndrome G89.4 ; Hypothyroidism, unspecified E03.9 ; Hyperparathyroidism, unspecified E21.3 and Sleep apnea, unspecified G47.30 Osmin Hernandez [address] [place] [address] 02/02/2025 Jhonny Enriquez Assessments Encounter Date Diagnosis [...] INTACT AND CALCIUM (8837) COMPREHENSIVE METABOLIC PANEL (09882) URIC ACID (905) 02/02/2025 CBC (INCLUDES DIFF/PLT) (6399) URINALYSIS, COMPLETE W/REFLEX TO CULTURE (3020) 02/02/2025 URINALYSIS, COMPLETE (7793) 02/02/2025 SED RATE BY MODIFIED WESTERGREN (809) HEMOGLOBIN A1c (496) 02/02/2025 VITAMIN D,25-OH,TOTAL,IA (46745) 025
--- NOTE | 2025-04-19 13:27 | P.SLEEP_ITS ---
Sleep Study Date of Study: 04/07/25 Ordering Provider: EllynTenisha NP-C Interpreting Physician: Tracy Saravia DO Sleep Study Type: Split Polysomnogram Height: 1.47 m Weight: 120.202 kg Body Mass Index: 55.3 Neck Circumference (inches): 24 [place]: 16 Reason for Sleep Study Excessive daytime sleepiness Sleep History The patient is a 54-year-old female that had a sleep study ordered by her primary care for evaluation of sleep apnea. The patient frequently awakens from sleep short of breath. She occasionally awakens at night with heartburn, belching or cough. She constantly snores and is frequently loud enough that others complain. She frequently has trouble sleeping when she has a cold. She frequently wakes up gasping for air throughout the night. She frequently has breathing problems at night observed by herself or others. She frequently sweats excessively at night. She occasionally has heart palpitations or irregular heartbeats during the night. She frequently falls asleep during the day but never while driving. She occasionally experiences loss of muscle tone when extremely emotional. She rarely has trouble at school or work due to sleepiness. She rarely feels unable to move while waking up or falling asleep. She frequently experiences vivid dreamlike scenes upon awakening or falling asleep. She frequently feels afraid of going to sleep. She frequently has nightmares. She occasionally remembers her dreams. She frequently has thoughts racing through her mind. She frequently feels sad or depressed. She constantly has anxiety. She frequently has muscular tension. She frequently kicks during the night. She frequently has crawling and aching feelings in her legs and frequently has leg pain during the night. She occasionally grinds her teeth during sleep and occasionally awakens with morning jaw pain. She is frequently bothered by pain during the day and frequently awakened by pain during the night. She frequently wakes up feeling stiff in the morning. She frequently wakes up with sore or achy muscles. She frequently wakes up with pain in the neck, spine and other joints. She goes to bed at 11:00 p.m. every night. It takes her 1 hour to fall asleep. She wakes up twice throughout the night to urinate and it can take her in our to fall back asleep. She wakes up at 7:00 a.m. every morning. She typically gets 4 hours of sleep per night. She stays in bed for 1 hour after waking up in the morning. She currently lives with her children. She denies consuming any caffeinated beverages within 2 hours of bedtime. She denies engaging in physical exercise before bedtime. She will watch television before falling asleep. She denies taking naps in afternoon or the evening. She consumes 2 caffeinated sodas per day. She denies tobacco, alcohol and recreational drug use. [facility] Past Medical History Medical History CHF (congestive heart failure) Hypothyroid History of blood transfusion Cervical cancer Endometriosis Surgical History Surgical History History of tonsillectomy History of hysterectomy History of umbilical hernia repair History of incisional hernia repair History of delivery Family History Family History Father Lung cancer Hypertension Mother Family history of chronic obstructive pulmonary disease Diabetes mellitus Heart disease Cerebrovascular accident Skin cancer Sibling Family history of malignant neoplasm of breast in first degree relative Family history of lupus erythematosus Other Asthma Depression Family history of Alzheimer's disease Family history of alcoholism Family history of anemia Family history of cardiovascular disease Family history of malignant neoplasm of male breast Family history of mental disorder Family history of seizure disorder Family history of thyroid disease Social History Social History Smoking status: Never smoker Alcohol intake: never Additional occupation/education comments: disabled Gender identity (if verbalized by the patient): Female Medications Home Medications ?Medication ?Instructions ?Recorded ?Confirmed ?Type calcitriol 0.25 mcg capsule 0.25 mcg PO DAILY 02/12/23 02/12/23 History clindamycin HCl 300 mg capsule 300 mg PO Q8H 7 days #2 1 caps 02/12/23 Rx ergocalciferol (vitamin D2) 1,250 1,250 mcg PO WEEKLY 02/12/23 02/12/23 History mcg (50,000 unit) capsule furosemide 40 mg tablet 40 mg PO DAILY 02/12/2301/25 History levothyroxine 150 mcg tablet 150 mcg PO DAILY 02/12/23 02/12/23 History tramadol 50 mg tablet 50 mg PO Q6H PRN pain #12 ta bs 02/12/23 Rx Sleep Procedure A full night split study using the Simple-Fill multi-channel system recorded the standard physiologic parameters including EEG, EOG, submentalis E MG, anterior tibialis EMG, EKG, body position, nasal and oral airflow using nasal pressure sensor and thermistor.? Respiratory parameters of chest and abdominal movements were recorded with Respiratory Inductance Plethysmography belts. Oxygen saturation was recorded by pulse oximetry. Video monitoring was also performed. Sleep stages, periodic limb movements, and EEG arousals were scored in 30 second epochs according to the criteria of the AASM Scoring Manual. The Apnea-Hypopnea Index was calculated using CMS guidelines for definition of hypopnea with 4% O2 desaturations while scoring respiratory events. Sleep Architecture During the diagnostic portion of the study, the total recording time was 226.9 minutes. The total sleep time was 170.0 minutes. Sleep latency was 18.4 minutes.? REM latency was 100.5 minutes. Sleep Efficiency was 74.9%. The patient had 6 awakenings for an awakening index of 2.1. Wake after sleep onset time was 38.5 minutes. The patient spent 22.0 minutes, 12.9% of total sleep time in Stage N1. The patient spent 42.5 minutes, 25.0% in Stage N2. The patient spent 89.0 minutes, 52.4% in Stage N3. The patient spent 16.5 minutes, 9.7% in Stage REM sleep. At 02:35:50 AM the patient was placed on PAP treatment and was titrated at pressures ranging from 5 cm H20 up to 20/13 cm H20 with supplemental oxygen at 2 lpm of O2. During the treatment portion of the study, the total recording time was 225.6 minutes.? The total sleep time was 215.0 minutes. Sleep latency was 8.5 minutes. REM latency was 101.5 minutes. Sleep Efficiency was 95.3%. Wake after Sleep Onset time was 2.5 minutes. The patient spent 16.5 minutes, 7.7% of total sleep time in Stage N1. The patient spent 178.5 minutes, 83.0% in Stage N2. The patient spent 2.0 minutes, 0.9% in Stage N3. The patient spent 18.0 minutes, 8.4% in Stage REM. Respiratory Analysis During the diagnostic portion of the study, the patient had 21 hypopneas and 13 obstructive apneas for an overall Apnea Hypopnea Index of 12.0 events per hour. The REM Apnea Hypopnea Index was 29.1. The NREM Apnea Hypopnea Index was 11.3. The patient had a Central Apnea Hypopnea Index of 0. There was no evidence of Keo-Beltrán Respirations. During the treatment portion of the study, the patient had 123 hypopneas, 11 obstructive apneas and 1 central apnea for an overall Apnea Hypopnea Index of 37.7 events per hour. The REM Apnea Hypopnea Index was 23.3. The NREM Apnea Hypopnea Index was 39.0. The patient had a Central Apnea Hypopnea Index of 0.3. There was no evidence of Keo-Beltrán Respirations. The patient started her sleep study on 2 lpm of O2. The oxygen was slowly weaned down and then discontinued so respiratory events were not being masked. The patient was started on CPAP 5 cm H2O but switching to BPAP 8/4 cm H2O shortly after due to difficulty exhaling against the pressure. The patient was able to fall asleep starting on BPAP 8/4 cm H2O. The patient was able to achieve REM sleep starting on BPAP 17/11 cm H2O. The patient was titrated to BPAP 19/12 cm H2O before supplemental oxygen was added due to persistently low oxygen saturations. On BPAP 20/13 cm H2O with 2 lpm of O2, the patient spent 97.5 minutes in NREM with 3 hypopneas, resulting in an AHI of 1.8. The patient had an oxygen saturation ranging between 90-92% on this pressure and oxygen setting. The patient had a sleep efficiency of 100% on the final pressure and oxygen settings. Arousals During the diagnostic portion of the study, there were a total of 22 arousals for an arousal index of 7.8.? There were 7 respiratory arousals for an index of 2.5. There were 0 periodic limb movement arousals for an index of 0.? There were 3 isolated limb movement arousals for an index of 1.1. There were 12 spontaneous arousals for an index of 4.2. During the treatment portion of the study, there were a total of 83 arousals for an index of 23.2.? There were 42 respiratory arousals for an index of 11.7. There were 18 periodic limb movement arousals for an index of 5.0.? There were 7 isolated limb movement arousals for an index of 2.0. There were 16 spontaneous arousals for an index of 4.5. Periodic Limb Movements During the diagnostic portion of the study, the patient had 3 isolated limb movements with an index of 1.1. The patient had 0 periodic limb movements with an index of 0. The patient had a total of 3 limb movements with a total limb m ovement index of 1.1. During the treatment portion of the study, the patient had 14 isolated limb movements with an index of 3.9. The patient had 248 periodic limb movements with an index of 69.2, which is elevated (normal < 15). The patient had a total of 262 limb movements with a total limb movement index of 73.1. Oximetry Data During the diagnostic portion of the study, the patient had an average oxygen saturation of 90.4% in wake with a minimum oxygen saturation of 72% and a maximum oxygen saturation of 97%. The patient had an average oxygen saturation of 88.3% in sleep with a minimum oxygen saturation of 78.0% and a maximum oxygen saturation of 95.0%. The patient had 39 oxygen desaturations resulting in an Oxy gen Desaturation Index of 13.8. The patient spent 103.2 minutes, 48.9% of total sleep time with an oxygen saturation less than 88%. During the treatment portion of the study, the patient had an average oxygen saturation of 90.7% in wake with a minimum oxygen saturation of 75.0% and a maximum oxygen saturation of 97.0%. The patient had an average oxygen saturation of 86.7% in sleep with a minimum oxygen saturation of 66.0% and a maximum oxygen saturation of 97.0%. The patient had 138 oxygen desaturations resulting in an Oxygen Desaturation Index of 38.5. The patient spent 109.6 minutes, 48.6% of total sleep time with an oxygen saturation less than 88%. Snoring Profile Mild snoring was present in the baseline portion of the study. The snoring resolved once the patient was started on CPAP therapy. Cardiac Profile The EKG lead showed normal sinus rhythm with ST depression, intermittent notc vianey of QRS complexes and frequent PVCs. During the diagnostic portion of the study, the average pulse rate was 59.0 bpm.? The minimum pulse rate was 53.0 bpm. The maximum pulse rate was 75.0 bpm. During the treatment portion of the study, the average pulse rate was 55.0 bpm.? The minimum pulse rate was 50.0 bpm. The maximum pulse rate was 65.0 bpm. EEG Profile No signs of seizure activity seen. Assessment and Plan Assessment and Plan (1) LM (obstructive sleep apnea): Code(s): G47.33 - Obstructive sleep apnea (adult) (pediatric) Status: Acute Assessment and Plan: In the diagnostic portion of the study, the patient had an overall AHI of 12.0 with desaturation down to 72%. This is consistent with mild sleep apnea. Due to the patient's pulmonary hypertension, she qualifies for treatment. The patient was started on CPAP 5 cm H2O and titrated to BPAP 20/13 cm H2O with 2 lpm of supplemental oxygen. The patient's sleep apnea resolved on the final pressure and oxygen settings with a high sleep efficiency. I recommend that the patient be prescribed BPAP 20/13 cm H2O with 2 lpm of supplemental oxygen, size medium Resmed AirTouch F20 full face mask, BPAP filters/tubing and heated humidity. This should be used with all episodes of sleep.? Compliance should be reviewed within 31-90 days of starting therapy for usage greater than 4 hours per night greater than 70% of the nights. The patient should be asked about symptoms such as?excessive daytime sleepiness, quality of sleep, decreased nocturia, increased?mental functioning such as memory, mood, and concentration. The patient had a significant number of limb movements during the study with the majority being periodic in nature. The patient's sleep history is positive for Restless Leg Syndrome. I recommend that the patient have a serum ferritin drawn for evaluation of iron deficiency anemia. If the patient has a serum ferritin less than 75 ng/mL, I recommend starting a daily iron supplement and a Vitamin C supplement for better absorption. If the serum ferritin is greater than 75 ng/mL, I recommend starting a dopamine agonist and titrating the dose until symptoms resolve. There are nonpharmacological methods to treat limb movements including daily exercise, stretching calf muscles before bed, avoiding excessive amounts of caffeine and alcohol, vitamin B supplementation, magnesium lotion massaged into legs before bed, and use of a weighted blanket. The patient also mentioned having frequent symptoms of anxiety and depression in her sleep history. I recommend that the patient complete a PHQ-9 and ZHANE-7 for further evaluation of mood disorders and review the results with her PCP. Data The data obtained during this sleep study is adequate for interpretation. Certification This sleep study has been reviewed by a board certified sleep medicine physician.
[2025-04-19 14:19] VITALS: BMI 55.3
== END 2025-04-08 06:50 | disposition home or self-care (01) ==
PROVIDERS: Visit Provider Nurse Practitioner
DX: G47.30 Sleep apnea, unspecified (principal); G47.33 Obstructive sleep apnea (adult) (pediatric)
CPT/HCPCS: 95811